=== PATIENT | male | born 1980 | race Hispanic/Latino ===

== ENCOUNTER → 2017-11-06 | Outpatient (CLI) | payer MEDICARE ==
[~2017-11-06] MED LIST: AMLODIPINE BESYL5 MG PO; ATROVENT HFA12.9 GM INH; BUMETANIDE1 MG PO; CHERATUSSIN AC118 ML PO; CLONIDINE1 EAC1 TOP; FLUTICASONE PRO16 GM; LEVEMIR100 UNIT/1 SC; OMEPRAZOLE40 MG PO; PROAIR HFA INH8.5 GM INH; PROCARDIA XL30 MG PO; SIMVASTATIN20 MG PO
== END ==
LOC: SLEEP 10-29 15:00
PROVIDERS: ATTEND Internal Medicine Pulmonary Disease
DX: G47.33 Obstructive sleep apnea (adult) (pediatric) (principal)
CPT/HCPCS: 95811

== ENCOUNTER 2019-09-15 12:33 | Emergency (ER) | payer MEDICARE ==
--- OUTSIDE RECORDS SUMMARY | 2019-09-17 13:59 | XMS REPORT ---
Author Author [facility] Address Unknown Phone Unavailable Care Team Providers Care Expansion Joint Builder Name Role Phone TOMASZ NAPOLES Unavailable Unavailable Payers Payer Name Policy Type Policy Number Effective Date Expiration Date Problems This patient has no known problems. Allergies, Adverse Reactions, Alerts Allergy Name Allergy Type Status Severity Reaction(s) Onset Date Inactive Date Treating Clinician Comments No Known Allergies DA Active U 2019-03-01 00:00:00 No Known Allergies DA Active U 2019-02-10 00:00:00 No Known Allergies DA Active U 2017-03-30 00:00:00 Medications This patient has no known medications. Procedures and Interventions Procedure Date / Time Performed Performing Clinician [id number] 2019-03-09 00:00:00 [id number] 2019-03-09 00:00:00 [id number] 2019-03-09 00:00:00 [id number] 2019-03-09 00:00:00 [id number] 2019-02-27 00:00:00 [id number] 2019-02-27 00:00:00 [id number] 2019-02-27 00:00:00 Results Test Description Test Time Test Comments Text Results Atomic Results Result Comments GLUBED 2019-09-17 11:21:00 GLUBED (test code=GLUBED) 148 mg/dL 74-106 [facility] BASIC METABOLIC [id number] 10:17:00* Test Item Value Reference Range Comments SODIUM (test code=NA) 138 mmol/L 136-145 POTASSIUM (test code=K) 4.6 mmol/L 3.5-5.1 CHLORIDE (test code=CL) 110.0 mmol/L 98-107 CARBON DIOXIDE (test code=CO2) 23.0 mmol/L 21-32 ANION GAP (test code=GAP) 9.6 10-20 GLUCOSE (test code=GLU) 161 mg/dL 74-106 BLOOD UREA NITROGEN (test code=BUN) 66 mg/dL 7-18 RESULT VERIFIED BY REPEAT ANALYSIS GLOMERULAR FILTRATION RATE (test code=GFR) 27 mL/min >=60 Estimated GFR by using Modified MDRD formula.Chronic kidney disease is defined as either kidney damageor GFR <60 mL/min/1.73 m2 for >3 months. CREATININE (test code=CREAT) 2.60 mg/dL 0.7-1.3 BUN/CREATININE RATIO (test code=BUN/CREA) 25.4 10-20 CALCIUM (test code=CA) 8.6 mg/dL 8.5-10.1 PARATHYROID HORMONE [id number] 10:17:00* Test Item Value Reference Range Comments PARATHYROID HORMONE INTACT (test code=PARAI) 134.90 pgram/mL 8.4-88 BASIC METABOLIC [id number] 10:10:00* Test Item Value Reference Range Comments SODIUM (test code=NA) 138 mmol/L 136-145 POTASSIUM (test code=K) 4.6 mmol/L 3.5-5.1 CHLORIDE (test code=CL) 110.0 mmol/L 98-107 CARBON DIOXIDE (test code=CO2) 23.0 mmol/L 21-32 ANION GAP (test code=GAP) 9.6 10-20 GLUCOSE (test code=GLU) 161 mg/dL 74-106 BLOOD UREA NITROGEN (test code=BUN) 66 mg/dL 7-18 RESULT VERIFIED BY REPEAT ANALYSIS GLOMERULAR FILTRATION RATE (test code=GFR) 27 mL/min >=60 Estimated GFR by using Modified MDRD formula.Chronic kidney disease is defined as either kidney damageor GFR <60 mL/min/1.73 m2 for >3 months. CREATININE (test code=CREAT) 2.60 mg/dL 0.7-1.3 BUN/CREATININE RATIO (test code=BUN/CREA) 25.4 10-20 CALCIUM (test code=CA) 8.6 mg/dL 8.5-10.1 PARATHYROID HORMONE [id number] 10:10:00* Test Item Value Reference Range Comments PARATHYROID HORMONE INTACT (test code=PARAI) pgram/mL 8.4-88 [id number] 09:54:00* Test Item Value Reference Range Comments GLUBED (test code=GLUBED) 153 mg/dL 74-106 [facility] band aid [facility] [id number] 06:02:00* Test Item Value Reference Range Comments GLUBED (test code=GLUBED) 162 mg/dL 74-106 Performed by certified band aid machine operator at [facility] - MRI LOW EXT W/O CONT [id number] 23:02:00 FAX: Manuel Peralta NP [phone] [employer]: St: [facility] FAX: Bon Vallecillo MD Name: PHILIP HALEY [facility] : 1980 Age/S: 39/M [address] [facility] Unit #: [id number] Loc: [place] [address] Phys: Manuel Peralta NP Acct: [id number] Dis Date: Status: ADM IN PHONE #: [phone] Exam Date: 09/16/2019 1830 FAX #: [phone] Reason: R/O osteomylitis EXAMS: CPT CODE: [id number] MRI LOW EXT W/[place] [address] HISTORY: Diabetic foot ulcer; rule out osteomyelitis TECHNIQUE: Sagittal T1, sagittal STIR, axial T1, axial T2 fat-sat, coronal T2, and coronal STIR sequences of the right foot were acquired without contrast. COMPARISON: X-ray 09/15/19 FINDINGS: 1st and 4th toe amputation at the level of the metatarsophalangeal joints. No bony destruction, marrow edema, or periosteal reaction. No j oint dislocation. Mild talonavicular degenerative arthrosis. Lisfranc liga ment is intact. Plantar fascia is intact. Intrinsic foot muscle signal riana nges compatible with peripheral neuropathy. Superficial soft tissues are u nremarkable. IMPRESSION: No evidence o f acute osteomyelitis. LOCATION: [facility] at 2302 Reported and signed by: Lise Love D.O. CC: Manuel Peralta NP; Bon Vallecillo MD Technologist: Liliana Perdue)(MR) Trnscrd Date/Time/By: 2018 (2301) : By: [email or web address] Orig Print D/T: S: 09/17/2019 (0749) PAGE 1 Signed Report [id number] 21:05:00* Test Item Value Reference Range Comments VANCOMYCIN (test code=VANCO) 11.2 UG/ML 5.0-45.0 [id number] 20:45:00* Test Item Value Reference Range Comments GLUBED (test code=GLUBED) 200 mg/dL 74-106 Performed by certified band aid machine operator at [facility] [id number] 16:56:00* Test Item Value Reference Range Comments GLUBED (test code=GLUBED) 154 mg/dL 74-106 Performed by certified band aid machine operator at [facility] [id number] 14:58:00* Test Item Value Reference Range Comments GLYCOSYLATED HEMOGLOBIN (HA1C) (test code=GLYHGB) 6.4 % HbA1 SUGGESTED DIAGNOSIS: HbA1C (%) Diabetic >6.4Prediabetes 5.7 - 6.4Normal <5.7 ESTIMATED AVERAGE GLUCOSE (test code=EAG) 137 MG/DL [id number] 13:01:00* Test Item Value Reference Range Comments GLUBED (test code=GLUBED) 144 mg/dL 74-106 Performed by certified band aid machine operator at [facility] US RETRO [id number] 13:00:00 Name: PHILIP HALEY [facility] : 1980 Age/S: 39 / M [address] Unit #: [id number] Loc: [place] [address] Phys: Trevor Yusuf MD Acct: [id number] Dis Date: Status: ADM IN PHONE #: [phone] Exam Date: 09/16/2019 1100 FAX #: [phone] Reason: arf EXAMS: CPT CODE: [id number] US RETRO LTD 75772 HISTORY: Acute renal failure. COMPARISON: None available. Location: [facility]. Bilateral renal ultrasound: Normal echogenicity and texture bilaterally. No hydronephrosis or calyceal stones bilaterally. No perinephric collections bilaterally. Right kidney measured 11.3 x 6.3 x 4.9 cm. Left kidney measured 11 x 6.5 x 6 cm. Unremarkable well-distended urinary bladder. No wall thickening or mural nodules. IMPRESSION: No hydronephrosis or calyceal stones with normal echogenicity and texture. Unremarkable well-distended urinary bladder. at 1300 Reported and signed by: Dae Willson M.D. CC: Treovr Yusuf MD; Bon Vallecillo MD Technologist: FAMILIA MEYER RT(R),[facility] Trnscb Date/Time: 09/16/2019 (1300) [email or web address] Orig Print D/T: S: 09/16/2019 (1309) Probe: PAGE 1 Signed Report BASIC METABOLIC [id number] 10:02:00* Test Item Value Reference Range Comments SODIUM (test code=NA) 137 mmol/L 136-145 POTASSIUM (test code=K) 4.8 mmol/L 3.5-5.1 CHLORIDE (test code=CL) 108.0 mmol/L 98-107 CARBON DIOXIDE (test code=CO2) 21.0 mmol/L 21-32 ANION GAP (test code=GAP) 12.8 10-20 GLUCOSE (test code=GLU) 138 mg/dL 74-106 BLOOD UREA NITROGEN (test code=BUN) 83 mg/dL 7-18 GLOMERULAR FILTRATION RATE (test code=GFR) 22 mL/min >=60 Estimated GFR by using Modified MDRD formula.Chronic kidney disease is defined as either kidney damageor GFR <60 mL/min/1.73 m2 for >3 months. CREATININE (test code=CREAT) 3.10 mg/dL 0.7-1.3 BUN/CREATININE RATIO (test code=BUN/CREA) 26.7 10-20 CALCIUM (test code=CA) 8.5 mg/dL 8.5-10.1 CBC W/AUTO [id number] 09:54:00* Test Item Value Reference Range Comments WHITE BLOOD CELL (test code=WBC) 7.0 K/mm3 4.5-12.5 RED BLOOD CELL (test code=RBC) 3.15 mill/mm3 4.0-5.8 HEMOGLOBIN (test code=HGB) 9.0 gram/dL 13.0-17.5 HEMATOCRIT (test code=HCT) 27.3 % 42.0-52.0 MEAN CELL VOLUME (test code=MCV) 86.7 fL 80-98 MEAN CELL HGB (test code=MCH) 28.6 picogram 27.0-33.0 MEAN CELL HGB CONCETRATION (test code=MCHC) 33.0 gram/dL 33.0-36.0 RED CELL DISTRIBUTION WIDTH (test code=RDW) 14.3 % 11.6-16.2 RED CELL DISTRIBUTION WIDTH SD (test code=RDW-SD) 45.1 fL 37.0-51.0 PLATELET COUNT (test code=PLT) 284 K/mm3 150-450 MEAN PLATELET VOLUME (test code=MPV) 9.6 fL 6.7-11.0 NEUTROPHIL % (test code=NT%) 67.1 % 39.0-69.0 IMMATURE GRANULOCYTE % (test code=IG%) 0.3 % 0.0-5.0 LYMPHOCYTE % (test code=LY%) 20.4 % 25.0-55.0 MONOCYTE % (test code=MO%) 10.2 % 0.0-10.0 EOSINOPHIL % (test code=EO%) 1.6 % 0.0-5.0 BASOPHIL % (test code=BA%) 0.4 % 0.0-1.0 NUCLEATED RBC % (test code=NRBC%) 0.0 % 0-0 NEUTROPHIL # (test code=NT#) 4.68 K/mm3 1.8-7.7 IMMATURE GRANULOCYTE # (test code=IG#) 0.02 x10 3/uL 0-0.03 LYMPHOCYTE # (test code=LY#) 1.42 K/mm3 1.0-5.0 MONOCYTE # (test code=MO#) 0.71 K/mm3 0-0.8 EOSINOPHIL # (test code=EO#) 0.11 K/mm3 0.0-0.5 BASOPHIL # (test code=BA#) 0.03 K/mm3 0.0-0.2 NUCLEATED RBC # (test code=NRBC#) 0.00 K/mm3 0.0-0.1 MANUAL DIFF REQUIRED (test code=MDIFF) NO [id number] 07:04:00* Test Item Value Reference Range Comments GLUBED (test code=GLUBED) 97 mg/dL 74-106 Performed by certified band aid machine operator at [facility] PROTHROMBIN [id number] 00:13:00* Test Item Value Reference Range Comments PROTHROMBIN TIME PATIENT (test code=PTP) 12.5 seconds 9.0-14.0 INTERNATIONAL NORMAL RATIO (test code=INR) 1.1 0.8-1.2 The therapeutic range for oral anticoagulant therapy formost indications is an international normalized ratio (INR)of between 2.0 and 3.0. The recommended therapeutic INRrange for various clinical situations is listed below: Clinical Situation INR range Pulmonary e mbolism treatment (2.0-3.0)Venous thrombosis treatmentVenous thrombosis prophylaxis (high risk surgery)Prevention of systemic embolism from: Acute myocardial infarction Valvular heart disease Atrial fibrillation Mechanical prosthetic heart valves (2.5-3.5) IS PATIENT ON ANTICOAGULANTS? NTHROMBOPLASTIN TIME [id number] 00:13:00* Test Item Value Reference Range Comments THROMBOPLASTIN TIME PARTIAL (test code=PTT) 42.2 seconds 25.0-36.5 IS PATIENT ON ANTICOAGULANTS? [id number] 00:07:00* Test Item Value Reference Range Comments POTASSIUM (test code=K) 5.0 mmol/L 3.5-5.1 URIC [id number] 23:15:00* Test Item Value Reference Range Comments URIC ACID (test code=URIC) 8.9 mg/dL 2.6-7.2 BASIC METABOLIC [id number] 18:19:00* Test Item Value Reference Range Comments SODIUM (test code=NA) 137 mmol/L 136-145 POTASSIUM (test code=K) 5.5 mmol/L 3.5-5.1 CHLORIDE (test code=CL) 109.0 mmol/L 98-107 CARBON DIOXIDE (test code=CO2) 21.0 mmol/L 21-32 ANION GAP (test code=GAP) 12.5 10-20 GLUCOSE (test code=GLU) 66 mg/dL 74-106 BLOOD UREA NITROGEN (test code=BUN) 85 mg/dL 7-18 GLOMERULAR FILTRATION RATE (test code=GFR) 20 mL/min >=60 Estimated GFR by using Modified MDRD formula.Chronic kidney disease is defined as either kidney damageor GFR <60 mL/min/1.73 m2 for >3 months. CREATININE (test code=CREAT) 3.40 mg/dL 0.7-1.3 BUN/CREATININE RATIO (test code=BUN/CREA) 24.6 10-20 CALCIUM (test code=CA) 9.0 mg/dL 8.5-10.1 C REACTIVE [id number] 18:19:00* Test Item Value Reference Range Comments C REACTIVE PROTEIN (test code=CRP) 3.28 mg/dL 0-0.3 CBC W/AUTO [id number] 18:14:00* Test Item Value Reference Range Comments WHITE BLOOD CELL (test code=WBC) 8.4 K/mm3 4.5-12.5 RED BLOOD CELL (test code=RBC) 3.64 mill/mm3 4.0-5.8 HEMOGLOBIN (test code=HGB) 10.3 gram/dL 13.0-17.5 HEMATOCRIT (test code=HCT) 31.0 % 42.0-52.0 MEAN CELL VOLUME (test code=MCV) 85.2 fL 80-98 MEAN CELL HGB (test code=MCH) 28.3 picogram 27.0-33.0 MEAN CELL HGB CONCETRATION (test code=MCHC) 33.2 gram/dL 33.0-36.0 RED CELL DISTRIBUTION WIDTH (test code=RDW) 14.5 % 11.6-16.2 RED CELL DISTRIBUTION WIDTH SD (test code=RDW-SD) 44.6 fL 37.0-51.0 PLATELET COUNT (test code=PLT) 338 K/mm3 150-450 MEAN PLATELET VOLUME (test code=MPV) 9.7 fL 6.7-11.0 NEUTROPHIL % (test code=NT%) 64.0 % 39.0-69.0 IMMATURE GRANULOCYTE % (test code=IG%) 0.2 % 0.0-5.0 LYMPHOCYTE % (test code=LY%) 22.4 % 25.0-55.0 MONOCYTE % (test code=MO%) 10.9 % 0.0-10.0 EOSINOPHIL % (test code=EO%) 2.0 % 0.0-5.0 BASOPHIL % (test code=BA%) 0.5 % 0.0-1.0 NUCLEATED RBC % (test code=NRBC%) 0.0 % 0-0 NEUTROPHIL # (test code=NT#) 5.38 K/mm3 1.8-7.7 IMMATURE GRANULOCYTE # (test code=IG#) 0.02 x10 3/uL 0-0.03 LYMPHOCYTE # (test code=LY#) 1.89 K/mm3 1.0-5.0 MONOCYTE # (test code=MO#) 0.92 K/mm3 0-0.8 EOSINOPHIL # (test code=EO#) 0.17 K/mm3 0.0-0.5 BASOPHIL # (test code=BA#) 0.04 K/mm3 0.0-0.2 NUCLEATED RBC # (test code=NRBC#) 0.00 K/mm3 0.0-0.1 MANUAL DIFF REQUIRED (test code=MDIFF) NO - XR FOOT 3 + V [id number] 15:34:00 FAX: Pam Toth NP [employer]: St: REG Name: PHILIP MELO [facility] : [birth year] Age/S: 39/M [address] [facility] Unit #: [id number] Loc: [place] [address] Phys: Pam Toth NP Acct: [id number] Dis Date: Status: REG ER PHONE #: [phone] Exam Date: 09/15/2019 1441 FAX #: [phone] Reason: swelling and wound on right foot EXAMS: CPT CODE: [id number] XR FOOT 3 + V RT [address] EXAM: Right foot, 3 views; INFORMATION: Swelling; infection, wound on right foot; FIND INGS: Status post amputation of the first and fourth toes. Mild loca lized osteoporosis is seen involving the head of the fourth metatarsal bon e but there is no evidence of cortical erosion. Otherwise, imaged bones ar e intact; no evidence of fracture or dislocation. Arterial calcifica tions. No evidence of radiopaque foreign bodies. IMPRESSIO N: 1. Status post amputation of the first and fourth toes. 2. Lo calized osteoporosis of the distal fourth metatarsal bone could be a sig n of early osteomyelitis. Location code: [facility] at 1534 Reported and signed by: Efra Irving M.D. CC: Pam Toth NP Technologist: RT Kailee(R); Chelsey Shetty Date/Time/By: 09/15/2019 (1534) : By: CrystalGRW Orig Print D/T: S: 09/15/2019 (9936) PAGE 1 Signed Report [id number] 15:06:00* Test Item Value Reference Range Comments GLUBED (test code=GLUBED) 155 mg/dL 74-106 Performed by certified band aid machine operator at [facility] - SP FLUORO GUID CTRL ACC [id number] 16:09:00 Name: PHILIP HALEY : 1980 Age/S: 38 / M [address] Unit #: [id number] Loc: [place] [address] Phys: Eloy Hardin MD Acct: [id number] Dis Date: Status: REG SDC PHONE #: [phone] Exam Date: 03/23/2019 6546 FAX #: Reason: EXAMS: CPT: [id number] SP FLUORO GUID CTRL ACC DEV 42310 Fluoro Time: 2:36 DAP (Gy m2): 4.80 Air Kerma (mGy): 22 EXAMINATION: TUNNELED CENTRAL VENOUS CATHETER PLACEMENT USING ULTRASOUND AND FLUOROSCOPIC GUIDANCE. LOCATION: S17. HISTORY: ESRD, NE/CAD, hypertension, DM, recently removed right-sided tunneled dialysis catheter for fever/suspected infection, request is made for new tunneled dialysis catheter after line holiday. COMPARISON: None. SEDATION: Moderate sedation was administered under the attending physician's direction and continuous monitoring by a trained nurse specialist who was independent from those actually performing the procedure. Total monitored sedation time was 30 minutes. IV hydralazine was given during procedure for elevated blood pressure. RADIATION DOSE: 23 mGy. TECHNIQUE: The risks, benefits and alternatives were discussed and informed consent was obtained. Prior to beginning the procedure, [place] Protocol was used to confirm the patient's identity and planned procedure. Prior to the procedure, the central veins were evaluated by ultrasound, an image recorded and saved in PACS. Maximum sterile barriers including cap, mask, hand hygiene, sterile gloves, sterile gown, large sterile drape and cutaneous antisepsis were used. The skin over the left internal jugular vein was sterilely prepped, draped and infiltrated with 1% lidocaine. The vein was accessed with a 21 gauge needle using realtime ultrasound guidance. A guidewire and catheter were then passed centrally using fluoroscopic guidance. The intravascular length from the access site to the right atrium was then assessed. After infiltrating the skin in the subclavicular region with 1% lidocaine, a short transverse incision was made and the 24 cm Duramax dialysis catheter was tunneled to the internal jugular access site and inserted through a peel-away sheath. The catheter was flushed with 100U/ml heparin. The incision in the lower neck was closed using 4-0 Vicryl and Dermabond. A sterile dressing was applied. ESTIMATED BLOOD LOSS: Less than 30 milliliters. PAGE 1 Signed Report (CONTINUED) Name: PHIILP HALEY : 1980 Age/S: 38 / M [address] Unit #: [id number] Loc: [place] [address] Phys: Eloy Hardin MD Acct: [id number] Dis Date: [place] [facility] [place] #: [phone] Exam Date: 03/23/2019 1450 FAX #: Reason: EXAMS: CPT: [id number] SP FLUORO GUID CTRL ACC DEV 53878 Fluoro Time: 2:36 DAP (Gy m2): 4.80 Air Kerma (mGy): 22 <Continued> DISCHARGED TO: Recovery and then to SNF. CONDITION: Stable. FINDINGS: Ultrasound image shows a patent vein in the lower neck. The final fluoroscopic image demonstrates the catheter with its tip in the right atrium. No complications are seen. IMPRESSION: Successful tunneled catheter placement. PLAN: The catheter is ready for immediate use. When treatment is completed, removal can be scheduled by calling [facility]. at 1609 Reported and signed by: Sav Up M.D. CC: Eloy Rubin MD PAGE 2 Signed Report Name: PHILIP HALEY [place] : 1980 Age/S: 38 / M [address] Unit #: [id number] Loc: [place] [address] Phys: Eoly Hardin MD Acct: [id number] Dis Date: Status[place] [facility] [place] #: [phone] Exam Date: 03/23/2019 1455 FAX #: Reason: EXAMS: CPT: [id number] SP FLUORO GUID CTRL ACC DEV 97831 Fluoro Time: 2:36 DAP (Gy m2): 4.80 Air Kerma (mGy): 22 < Continued> Technologist: Roque Taylor RT(R) Trnscb Date/Time: 03/23/2019 (6022) [email or web address] Orig Print D/T: S: 03/23/2019 (9906) PAGE 3 Signed Report - SP FLUORO GUID CTRL ACC [id number] 09:03:00 Name: PHILIP HALEY : 1980 Age/S: 38 / M [address] Unit #: [id number] Loc: [place] [address] Phys: Vimal Wiggins MD Acct: [id number] Dis Date: Status: DEP SD PHONE #: [phone] Exam Date: 03/21/2019 09 FAX #: Reason: EXAMS: CPT: [id number] SP FLUORO GUID CTRL ACC DEV 40034 Fluoro Time: :09 DAP (Gy m2): 0.20 Air Kerma (mGy): 1 PROCEDURE: FLUOROSCOPIC GUIDED TUNNELED CUFFED CATHETER REMOVAL DATE: 03/21/2019 CLINICAL INDICATION: 38-year-old man with end- stage renal disease and suspected infection of a tunneled hemodialysis catheter. OPERATING PHYSICIANS: Mauricio Linares MD MEDICATIONS: 1% lidocaine without epinephrine COMPLICATIONS: None FLUORO TIME: 8 seconds; Air Kerma: 1 mGy PROCEDURE: Risk and benefits of the procedure were detailed, and informed written consent was obtained. Patient was placed supine on the fluoroscopy table. A marriage and family social worker radiograph was obtained. The indwelling heparin flush was drawn off the catheter ports. The catheter and skin was then prepped and draped in standard sterile fashion. All elements of maximum barrier sterile technique were utilized. The skin and subcutaneous tissue around the catheter cuff was infiltrated with local anesthetic. Blunt dissection was used to release the catheter cuff. The catheter was withdrawn and hemostasis was achieved with manual compression. A sterile dressing was applied. A post procedure radiograph shows complete removal of the catheter. The catheter tip was placed in a specimen container and sent for Gram stain, culture, and sensitivity. The patient tolerated the procedure well without immediate complications. IMPRESSION: Successful removal of a tunneled cuffed right jugular hemodialysis catheter. LOCATION: S17 at 0903 Reported and signed by: Mauricio Linares M.D. PAGE 1 Signed Report (CONTINUED) Name: PHILIP HALEY [place] : 1980 Age/S: 38 / M [address] Unit #: [id number] Loc: [place] [address] Phys: Vimal Wiggins MD Acct: [id number] Dis Date: Status: [facility] PHONE #: [phone] Exam Date: 03/21/2019 09 FAX #: Reason: EXAMS: CPT: [id number] SP FLUORO GUID CTRL ACC DEV 27213 Fluoro Time: :09 DAP (Gy m2): 0.20 Air Kerma (mGy): 1 <Continued> CC: Vimal Wiggins MD PAGE 2 Signed Report Name: PHILIP HALEY [place] : 1980 Age/S: 38 / M [address] Unit #: [id number] Loc: [place] [address] Phys: Vimal Wiggins MD Acct: [id number] Dis Date: Status: [facility] PHONE #: [phone] Exam Date: 03/21/2019 0900 FAX #: Reason: EXAMS: CPT: [id number] SP FLUORO GUID CTRL ACC DEV 30453 Fluoro Time: :09 DAP (Gy m2): 0.20 Air Kerma (mGy): 1 <Continued> Technologist: Roque Taylor RT(R) Trnscb Date/Time: 03/21/2019 (902) [id number] Orig Print D/T: S: 03/22/2019 (900) PAGE 3 Signed Report GLUBED 2019-03-15 08:04:00* Test Item Value Reference Range Comments GLUBED (test code=GLUBED) 157 mg/dL 74-106 Performed by certified band aid machine operator at [facility] [id number] 08:04:00* Test Item Value Reference Range Comments GLUBED (test code=GLUBED) 136 mg/dL 74-106 Performed by certified band aid machine operator at [facility] BASIC METABOLIC [id number] 22:35:00* Test Item Value Reference Range Comments SODIUM (test code=NA) 132 mmol/L 134-147 POTASSIUM (test code=K) 4.3 mmol/L 3.4-5.0 CHLORIDE (test code=CL) 96 mmol/L 100-108 CARBON DIOXIDE (test code=CO2) 27 mmol/L 21-32 ANION GAP (test code=GAP) 9.0 GAP calc 4.0-15.0 GLUCOSE (test code=GLU) 136 MG/DL 70-110 BLOOD UREA NITROGEN (test code=BUN) 28 MG/DL 7-18 GLOMERULAR FILTRATION RATE (test code=GFR) 16 estGFR >60 CREATININE (test code=CREAT) 4.3 MG/DL 0.8-1.3 CALCIUM (test code=CA) 8.6 MG/DL 8.5-10.1 GLUCOSE BEDSIDE [id number] 11:54:00* Test Item Value Reference Range Comments GLUCOSE BEDSIDE TESTING (test code=GLUBED) 162 mg/dL 70-110 - SP FLUORO GUID CTRL ACC [id number] 10:12:00 Name: TERAPHILIP [facility] : 1980 Age/S: 38 / M [address] [facility] Unit #: [id number] Loc: [place] [address] Phys: Renzo Huston MD Acct: [id number] Dis Date: [id number] Status: DIS IN PHONE #: [phone] Exam Date: 02/26/2019 1713 FAX #: [phone] Reason: EXAMS: CPT CODE: [id number] SP FLUORO GUID CTRL ACC DEV 06133 Fluoro Time: 19 DAP (Gy m2): 0.2 Air Kerma (mGy): 1 EXAM: Insertion of a tunneled hemodialysis catheter with fluoroscopic guidance and conscious sedation; INFORMATION: Chronic renal failure; indwelling temporary hemodialysis catheter; TECHNIQUE AND FINDINGS: Conscious sedation start time: 1651 hours; Completion time: 1713 hours; Under physician supervision 2 mg of Versed and 50 mcg of fentanyl were administered intravenously for moderate sedation. The patient's right neck and upper chest region was prepped and draped in the usual sterile fashion, applying all elements of maximal sterile barrier technique. Xylocaine was administered and using fluoroscopic guidance the indwelling temporary hemodialysis catheter was removed over a guidewire. Sequential dilatation was performed and a 15 Fr ench peel-away sheath was inserted. A subcutaneous tunnel was create d in the usual sterile fashion and a tunneled hemodialysis catheter was th en inserted and positioned with its tip in the right atrium. Good bl ood return was noticed; the catheter was sutured to the skin and flushed w ith heparinized saline. No complications. IMPRESSION: Successful insertion of a tunneled hemodialysis catheter with fluoro scopic guidance. Fluoroscopy Time: 19 sec CAK : 1 mGy DAP : 0.2 mGy sq cm at 1012 Reported and signed by: Efra Irving M.D. CC: Renzo Huston MD Technologist: Maddi PAPPAS(R) Trnscb Date/Time: 03/08/2019 (101 ) Lamin Orig Print D/T: S: 03/08/2019 (1016) PAGE 1 Signed Report GLUCOSE BEDSIDE [id number] 07:53:00* Test Item Value Reference Range Comments GLUCOSE BEDSIDE TESTING (test code=GLUBED) 174 mg/dL 70-110 BASIC METABOLIC [id number] 06:08:00* Test Item Value Reference Range Comments SODIUM (test code=NA) 135 mmol/L 134-147 POTASSIUM (test code=K) 3.8 mmol/L 3.4-5.0 CHLORIDE (test code=CL) 100 mmol/L 100-108 CARBON DIOXIDE (test code=CO2) 27 mmol/L 21-32 ANION GAP (test code=GAP) 8.0 GAP calc 4.0-15.0 GLUCOSE (test code=GLU) 156 MG/DL 70-110 BLOOD UREA NITROGEN (test code=BUN) 20 MG/DL 7-18 GLOMERULAR FILTRATION RATE (test code=GFR) 19 estGFR >60 CREATININE (test code=CREAT) 3.8 MG/DL 0.8-1.3 CALCIUM (test code=CA) 8.8 MG/DL 8.5-10.1 GLUCOSE BEDSIDE [id number] 05:17:00* Test Item Value Reference Range Comments GLUCOSE BEDSIDE TESTING (test code=GLUBED) 161 mg/dL 70-110 GLUCOSE BEDSIDE [id number] 17:01:00* Test Item Value Reference Range Comments GLUCOSE BEDSIDE TESTING (test code=GLUBED) 164 mg/dL 70-110 GLUCOSE BEDSIDE [id number] 12:08:00* Test Item Value Reference Range Comments GLUCOSE BEDSIDE TESTING (test code=GLUBED) 165 mg/dL 70-110 GLUCOSE BEDSIDE [id number] 08:22:00* Test Item Value Reference Range Comments GLUCOSE BEDSIDE TESTING (test code=GLUBED) 170 mg/dL 70-110 GLUCOSE BEDSIDE [id number] 20:23:00* Test Item Value Reference Range Comments GLUCOSE BEDSIDE TESTING (test code=GLUBED) 157 mg/dL 70-110 GLUCOSE BEDSIDE [id number] 17:19:00* Test Item Value Reference Range Comments GLUCOSE BEDSIDE TESTING (test code=GLUBED) 178 mg/dL 70-110 GLUCOSE BEDSIDE [id number] 12:12:00* Test Item Value Reference Range Comments GLUCOSE BEDSIDE TESTING (test code=GLUBED) 117 mg/dL 70-110 GLUCOSE BEDSIDE [id number] 08:08:00* Test Item Value Reference Range Comments GLUCOSE BEDSIDE TESTING (test code=GLUBED) 156 mg/dL 70-110 GLUCOSE BEDSIDE [id number] 19:55:00* Test Item Value Reference Range Comments GLUCOSE BEDSIDE TESTING (test code=GLUBED) 180 mg/dL 70-110 GLUCOSE BEDSIDE [id number] 17:27:00* Test Item Value Reference Range Comments GLUCOSE BEDSIDE TESTING (test code=GLUBED) 125 mg/dL 70-110 GLUCOSE BEDSIDE [id number] 12:15:00* Test Item Value Reference Range Comments GLUCOSE BEDSIDE TESTING (test code=GLUBED) 203 mg/dL 70-110 GLUCOSE BEDSIDE [id number] 08:09:00* Test Item Value Reference Range Comments GLUCOSE BEDSIDE TESTING (test code=GLUBED) 174 mg/dL 70-110 BASIC METABOLIC [id number] 04:37:00* Test Item Value Reference Range Comments SODIUM (test code=NA) 131 mmol/L 134-147 POTASSIUM (test code=K) 3.8 mmol/L 3.4-5.0 CHLORIDE (test code=CL) 95 mmol/L 100-108 CARBON DIOXIDE (test code=CO2) 28 mmol/L 21-32 ANION GAP (test code=GAP) 8.0 GAP calc 4.0-15.0 GLUCOSE (test code=GLU) 150 MG/DL 70-110 BLOOD UREA NITROGEN (test code=BUN) 23 MG/DL 7-18 GLOMERULAR FILTRATION RATE (test code=GFR) 13 estGFR >60 CREATININE (test code=CREAT) 5.3 MG/DL 0.8-1.3 CALCIUM (test code=CA) 8.7 MG/DL 8.5-10.1 GLUCOSE BEDSIDE [id number] 20:39:00* Test Item Value Reference Range Comments GLUCOSE BEDSIDE TESTING (test code=GLUBED) 159 mg/dL 70-110 GLUCOSE BEDSIDE [id number] 16:58:00* Test Item Value Reference Range Comments GLUCOSE BEDSIDE TESTING (test code=GLUBED) 138 mg/dL 70-110 GLUCOSE BEDSIDE [id number] 12:11:00* Test Item Value Reference Range Comments GLUCOSE BEDSIDE TESTING (test code=GLUBED) 116 mg/dL 70-110 GLUCOSE BEDSIDE [id number] 08:05:00* Test Item Value Reference Range Comments GLUCOSE BEDSIDE TESTING (test code=GLUBED) 142 mg/dL 70-110 BASIC METABOLIC [id number] 04:41:00* Test Item Value Reference Range Comments SODIUM (test code=NA) 131 mmol/L 134-147 POTASSIUM (test code=K) 4.2 mmol/L 3.4-5.0 CHLORIDE (test code=CL) 96 mmol/L 100-108 CARBON DIOXIDE (test code=CO2) 26 mmol/L 21-32 ANION GAP (test code=GAP) 9.0 GAP calc 4.0-15.0 GLUCOSE (test code=GLU) 149 MG/DL 70-110 BLOOD UREA NITROGEN (test code=BUN) 33 MG/DL 7-18 GLOMERULAR FILTRATION RATE (test code=GFR) 11 estGFR >60 CREATININE (test code=CREAT) 6.3 MG/DL 0.8-1.3 CALCIUM (test code=CA) 9.0 MG/DL 8.5-10.1 GLUCOSE BEDSIDE [id number] 16:52:00* Test Item Value Reference Range Comments GLUCOSE BEDSIDE TESTING (test code=GLUBED) 135 mg/dL 70-110 - XR CHEST 1 [id number] 14:31:00 Name: PHILIP HALEY [facility] : 1980 Age/S: 38 / M [address] Unit #: [id number] Loc: [place] [address] Phys: Kulwinder Ruffin MD Acct: [id number] Dis Date: [id number] Status: DIS IN PHONE #: [phone] Exam Date: 03/03/2019 135 FAX #: Reason: SOB EXAMS: CPT: [id number] XR CHEST 1 V 91236 Fluoro Time: DAP (Gy m2): Air Kerma (mGy): Location of dictation: B2 Portable chest one view. HISTORY: SOB COMMENT: Compared to 03/01/2019. A right-sided central venous catheter catheter remains in place. The heart and mediastinum are normal and stable. Visualized soft tissues and skeletal structures are unremarkable. There has been no significant changes. IMPRESSION: No active disease in the chest. at 1431 Reported and signed by: Ashtyn Ortega M.D. CC: Kulwinder Ruffin MD PAGE 1 Signed Report Name: PHILIP HALEY [place] : 1980 Age/S: 38 / M [address] Unit #: [id number] Loc: [place] [address] Phys: Kulwinder Ruffin MD Acct: [id number] Dis Date: [id number] Status: DIS IN PHONE #: [phone] Exam Date: 03/03/2019 1355 FAX #: Reason: SOB EXAMS: CPT: [id number] XR CHEST 1 V 93412 Fluoro Time: DAP (Gy m2): Air Kerma (mGy): <Continued> Technologist: Ilana Pina, RT(R)(CT)(MRI) Trnwvb Date/Time: 03/03/2019 (1431) tRAPHAELPXC Orig Print D/T: S: 03/03/2019 (1434) PAGE 2 Signed Report - XR CHEST 1 [id number] 14:31:00 Name: PHILIP HALEY : 1980 Age/S: 38 / M [address] Unit #: [id number] Loc: [place] [address] Phys: Kulwinder Ruffin MD Acct: [id number] Dis Date: Status: ADM IN PHONE #: [phone] Exam Date: 03/03/2019 1359 FAX #: Reason: SOB EXAMS: CPT: [id number] XR CHEST 1 V 53800 Fluoro Time: DAP (Gy m2): Air Kerma (mGy): Location of dictation: B2 Portable chest one view. HISTORY: SOB COMMENT: Compared to 03/01/2019. A right-sided central venous catheter catheter remains in place. The heart and mediastinum are normal and stable. Visualized soft tissues and skeletal structures are unremarkable. There has been no significant changes. IMPRESSION: No active disease in the chest. at 1431 Reported and signed by: Ashtyn Ortega M.D. CC: Kulwinder Ruffin MD PAGE 1 Signed Report Name: PHILIP HALEY : 1980 Age/S: 38 / M [address] Unit #: [id number] Loc: [place] [address] Phys: Kulwinder Ruffin MD Acct: [id number] Dis Date: Status: ADM IN PHONE #: [phone] Exam Date: 03/03/2019 1359 FAX #: Reason: SOB EXAMS: CPT: [id number] XR CHEST 1 V 94653 Fluoro Time: DAP (Gy m2): Air Kerma (mGy): <Continued> Technologist: Ilana Pina, RT(R)(CT)(MRI) Trnscb Date/Time: 03/03/2019 (1431) CrystalPXC Orig Print D/T: S: 03/03/2019 (5095) PAGE 2 Signed Report GLUCOSE BEDSIDE [id number] 11:57:00* Test Item Value Reference Range Comments GLUCOSE BEDSIDE TESTING (test code=GLUBED) 137 mg/dL 70-110 GLUCOSE BEDSIDE [id number] 08:45:00* Test Item Value Reference Range Comments GLUCOSE BEDSIDE TESTING (test code=GLUBED) 108 mg/dL 70-110 BASIC METABOLIC [id number] 04:45:00* Test Item Value Reference Range Comments SODIUM (test code=NA) 136 mmol/L 134-147 POTASSIUM (test code=K) 4.1 mmol/L 3.4-5.0 CHLORIDE (test code=CL) 97 mmol/L 100-108 CARBON DIOXIDE (test code=CO2) 27 mmol/L 21-32 ANION GAP (test code=GAP) 12.0 GAP calc 4.0-15.0 GLUCOSE (test code=GLU) 116 MG/DL 70-110 BLOOD UREA NITROGEN (test code=BUN) 18 MG/DL 7-18 GLOMERULAR FILTRATION RATE (test code=GFR) 19 estGFR >60 CREATININE (test code=CREAT) 3.8 MG/DL 0.8-1.3 CALCIUM (test code=CA) 9.6 MG/DL 8.5-10.1 GLUCOSE BEDSIDE [id number] 20:25:00* Test Item Value Reference Range Comments GLUCOSE BEDSIDE TESTING (test code=GLUBED) 131 mg/dL 70-110 GLUCOSE BEDSIDE [id number] 16:50:00* Test Item Value Reference Range Comments GLUCOSE BEDSIDE TESTING (test code=GLUBED) 117 mg/dL 70-110 GLUCOSE BEDSIDE [id number] 11:41:00* Test Item Value Reference Range Comments GLUCOSE BEDSIDE TESTING (test code=GLUBED) 137 mg/dL 70-110 GLUCOSE BEDSIDE [id number] 07:43:00* Test Item Value Reference Range Comments GLUCOSE BEDSIDE TESTING (test code=GLUBED) 111 mg/dL 70-110 AB HEPATITIS B [id number] 06:13:00* Test Item Value Reference Range Comments AB HEPATITIS B SURFACE (test code=HBSAB) <3.1 mIU/mL Immunity>9.9 Status of Immunity Anti-HBs Level Inconsistent with Immunity 0.0 - 9.9Consistent with Immunity >9.9 AG HEPATITIS B [id number] 06:13:00* Test Item Value Reference Range Comments AG HEPATITIS B SURFACE (test code=HBSAG) SCREEN NEGATIVE AB HEPATITIS B [id number] 06:13:00* Test Item Value Reference Range Comments AB HEPATITIS B CORE (test code=HBCAB) AB HEPATITIS B [id number] 06:13:00* Test Item Value Reference Range Comments AB HEPATITIS B SURFACE (test code=HBSAB) <3.1 mIU/mL Immunity>9.9 Status of Immunity Anti-HBs Level Inconsistent with Immunity 0.0 - 9.9Consistent with Immunity >9.9 AG HEPATITIS B [id number] 06:13:00* Test Item Value Reference Range Comments AG HEPATITIS B SURFACE (test code=HBSAG) Negative Negative AB HEPATITIS B [id number] 06:13:00* Test Item Value Reference Range Comments AB HEPATITIS B CORE (test code=HBCAB) AB HEPATITIS B [id number] 06:13:00* Test Item Value Reference Range Comments AB HEPATITIS B SURFACE (test code=HBSAB) <3.1 mIU/mL Immunity>9.9 Status of Immunity Anti-HBs Level Inconsistent with Immunity 0.0 - 9.9Consistent with Immunity >9.9 AG HEPATITIS B [id number] 06:13:00* Test Item Value Reference Range Comments AG HEPATITIS B SURFACE (test code=HBSAG) Negative Negative AB HEPATITIS B [id number] 06:13:00* Test Item Value Reference Range Comments AB HEPATITIS B CORE (test code=HBCAB) Negative Negative Performed At: [facility] [address] [place], [place] [id number] Bar Raygoza MD Ph:[phone] BASIC METABOLIC [id number] 04:30:00* Test Item Value Reference Range Comments SODIUM (test code=NA) 140 mmol/L 134-147 POTASSIUM (test code=K) 3.8 mmol/L 3.4-5.0 CHLORIDE (test code=CL) 102 mmol/L 100-108 CARBON DIOXIDE (test code=CO2) 28 mmol/L 21-32 ANION GAP (test code=GAP) 10.0 GAP calc 4.0-15.0 GLUCOSE (test code=GLU) 120 MG/DL 70-110 BLOOD UREA NITROGEN (test code=BUN) 21 MG/DL 7-18 GLOMERULAR FILTRATION RATE (test code=GFR) 24 estGFR >60 CREATININE (test code=CREAT) 3.1 MG/DL 0.8-1.3 CALCIUM (test code=CA) 9.2 MG/DL 8.5-10.1 CBC W/AUTO [id number] 04:05:00* Test Item Value Reference Range Comments WHITE BLOOD CELL (test code=WBC) 7.2 K/mm3 3.5-11.0 RED BLOOD CELL (test code=RBC) 3.37 M/mm3 4.70-6.10 HEMOGLOBIN (test code=HGB) 9.7 G/DL 12.3-15.9 HEMATOCRIT (test code=HCT) 30.0 % 35.8-46.7 MEAN CELL VOLUME (test code=MCV) 89.0 Fl 86.3-98.9 MEAN CELL HGB (test code=MCH) 28.8 pg 28.9-34.4 MEAN CELL HGB CONCETRATION (test code=MCHC) 32.3 G/DL 32.1-34.5 RED CELL DISTRIBUTION WIDTH (test code=RDW) 13.4 SD 11.5-14.5 PLATELET COUNT (test code=PLT) 376.0 K/mm3 150-450 MEAN PLATELET VOLUME (test code=MPV) 8.70 fL 7.0-9.6 NEUTROPHIL % (test code=NT%) 66.5 % 40-76 LYMPHOCYTE % (test code=LY%) 17.5 % 20.5-51.1 MONOCYTE % (test code=MO%) 13.1 % 1.7-9.3 EOSINOPHIL % (test code=EO%) 2.6 % 0.0-6.0 BASOPHIL % (test code=BA%) 0.3 % 0.0-2.0 NEUTROPHIL # (test code=NT#) 4.79 K/mm3 1.8-7.6 LYMPHOCYTE # (test code=LY#) 1.3 K/mm3 0.6-3.0 MONOCYTE # (test code=MO#) 0.9 K/mm3 0.2-1.5 EOSINOPHIL # (test code=EO#) 0.2 K/mm3 0.0-0.4 BASOPHIL # (test code=BA#) 0.0 K/mm3 0.0-0.2 MANUAL DIFF REQUIRED (test code=MDIFF) NO DIFF/SCN CRITERIA GLUCOSE BEDSIDE [id number] 20:00:00* Test Item Value Reference Range Comments GLUCOSE BEDSIDE TESTING (test code=GLUBED) 171 mg/dL 70-110 - DUP EXTRACRANIAL [id number] 19:02:00 Name: PHILIP HALEY [facility] : 1980 Age/S: 38 / M [address] Unit #: [id number] Loc: [place] [address] Phys: Aamir Dinh MD Acct: [id number] Dis Date: 03/08/2019 Status: DIS IN PHONE #: [phone] Exam Date: 03/01/2019 1757 FAX #: Reason: syncope EXAMS: CPT: [id number] DUP EXTRACRANIAL RAYSHAWN [address] Carotid Doppler Clinical indication: Syncope Comparison: None Location B2 Doppler interrogation of the right and left extracranial carotid internal carotid artery was performed using color Doppler, grayscale and pulsed Doppler waveform analysis. Appropriate flow velocities and waveforms are demonstrated in all of the interrogated vessels. No appreciable plaque is demonstrated. Peak systolic velocity in the right ICA 78.4 Peak systolic velocity in the right CCA 92.5 Right ICA to CCA ratio 0.8 Peak systolic velocity in the left ICA 59.9 Peak systolic velocity in the left CCA 117 Left ICA to CCA ratio0.5 Flow in the external carotid artery and vertebral arteries is antegrade and appropriate bilaterally. Impre ssion: Normal carotid Doppler. at 1902 Reported and signed by: Keyona Lees M.D. CC: Aamir Dinh MD; Kulwinder Ruffin MD Technologist: Debbie Weston Trnscb Date/Time: 03/01/2019 (1901) Tere PAGE 1 Signed R eport Name: PHILIP HALEY [facility] : 1980 Age/S: 38 / M [address] Unit #: [id number] Loc: [place] [address] Phys: Aamir Dinh MD Acct: [id number] Dis Date: 03/08/2019 Status: DIS IN PHONE #: [phone] Exam Date: 03/01/2019 1751 FAX #: Reason: syncope EXAMS: CPT: [id number] DUP EXTRACRANIAL RAYSHAWN [address] <Continued> Orig Print D/T: S: 03/01/2019 (1904) Probe: PAGE 2 Signed Report - DUP EXTRACRANIAL [id number] 19:02:00 [facility] 1980 Age[facility]S: 38 / M [address] Unit #: [id number] Loc: [place] [address] Phys: Alva Dinh MD Acct: [id number] Di s Date: Status: ADM IN PHONE #: Exam Date: 03/01/2019 9371 FAX #: Reason: syncope EXAMS: CPT: [id number] DUP EXTRACRAN IAL RAYSHAWN [address] Carotid Doppler Clinical indication: Syncope Comparison: None Location B2 Doppler interrogation of the right and left extracrania l carotid internal carotid artery was performed using color Doppler, gabe morgan and pulsed Doppler waveform analysis. Appropriate flow velocities and waveforms are demonstrated in all of the interrogated vesse ls. No appreciable plaque is demonstrated. Peak syst olic velocity in the right ICA 78.4 Peak systolic velocity in the right CC A 92.5 Right ICA to CCA ratio 0.8 Peak systolic velocity in the left ICA 59.9 Peak systolic velocity in the left CCA 117 Left IC A to CCA ratio0.5 Flow in the external carotid artery and vertebra l arteries is antegrade and appropriate bilaterally. Impre ssion: Normal carotid Doppler. at 1902 Reported and signed by: Keyona Lees M.D. CC: Aamir Dinh MD; Kulwinder Ruffin MD Technologist: Debbie Weston Trnscb Date/Time: 03/01/2019 (1901) Tere PAGE 1 Signed R eport Name: PHILIP HALEY [facility] : 1980 Age/S: 38 / M [address] Unit #: [id number] Loc: [place] [address] Phys: Aamir Dinh MD Acct: [id number] Dis Date: Status: ADM IN PHONE #: [phone] Exam Date: 03/01/2019 8568 FAX #: Reason: syncope EXAMS: CPT: [id number] DUP EXTRACRANIAL R[place]SHAWN [address] <Continued> Orig Print D/T: S: 03/01/2019 (190) Probe: PAGE 2 Signed Report NT PRO-BRAIN NATRIURETIC [id number] 16:34:00* Test Item Value Reference Range Comments NT PRO-BRAIN NATRIURETIC PEPTI (test code=PROBNP) 869 PG/ML 0-100 [id number] 16:34:00* Test Item Value Reference Range Comments TROPONIN-I (test code=TROPI) < 0.015 NG/ML 0.000-0.045 Negative: </=0.045 Positive: >/=0.046 Correlation with serial results, other cardiac markers, and clinical findings is necessary to determine the clinical significance of this result. Quantitative results using different methodologies should not be compared to one another as numerical results may varyby method. Completed by Nursing: NOGLUCOSE BEDSIDE [id number] 16:18:00* Test Item Value Reference Range Comments GLUCOSE BEDSIDE TESTING (test code=GLUBED) 102 mg/dL 70-110 GLUCOSE BEDSIDE [id number] 13:33:00* Test Item Value Reference Range Comments GLUCOSE BEDSIDE TESTING (test code=GLUBED) 117 mg/dL 70-110 [id number] 13:03:00* Test Item Value Reference Range Comments TROPONIN-I (test code=TROPI) < 0.015 NG/ML 0.000-0.045 Negative: </=0.045 Positive: >/=0.046 Correlation with serial results, other cardiac markers, and clinical findings is necessary to determine the clinical significance of this result. Quantitative results using different methodologies should not be compared to one another as numerical results may varyby method. Completed by Nursing: NO- CTA CHEST FOR [id number] 11:56:00 Name: PHILIP HALEY : 1980 Age/S: 38 / M [address] [address] Unit #: [id number] Loc: [place] [address] Phys: MenaAnd rosita Wasserman MD Acct: [id number] Di s Date: 03/08/2019 Status: DIS IN PHONE #: Exam Date: 03/01/2019 1146 FAX #: Reason: rule out PE EXAMS: CPT: [id number] CTA CHEST FOR PE EXAMINATION: - CTA CHEST FOR PE. LOCATION: S17. HISTORY: Possible seizure ac tivity, chest pain, dyspnea, SOB, HTN, renal failure. COMPAR YOANA: None. TECHNIQUE: CTA of the chest is performed after intrave nous administration of 80 cc of Isovue-370 using pulmonary embolism protocol. MIP images are obtained. One or more the following dose reductio n techniques were used: Automated exposure control, adjustment of mA and/o r kV according to patient size, and use of iterative reconstruction techni que. FINDINGS: Glove Pairer image demonstrates right-sided tunnel dialysi s catheter with tip overlying right atrium. Partially visualized thyroid gland appears unremarkable. VASCULATURE: There is normal enha ncement of the main, lobar and segmental pulmonary arteries. There are no filling defects to suggest a pulmonary embolism. LYMPH NODES : No axillary, mediastinal or hilar bulky lymphadenopathy is identified. MEDIASTINUM: No mediastinal mass is noted. No aneurysmal dilatation of thoracic aorta. Atherosclerotic vascular calcifications. PLEURA/PERICARDIUM: No pericardial or pleural effusion is seen. LUNGS/AIRWAYS: The trachea and central bronchi are patent. No pneumothor ax. No focal consolidation. Bibasilar dependent changes. OSSEOUS STRUCTURES: Visualized osseous structures demonstrate mild degenerative c hanges. Bilateral anterior multiple age-indeterminate rib fractures. UPPER ABDOMEN: Visualized portion of the upper abdominal viscera appear unremarkable. IMPRESSION: No CTA evide nce to suggest a pulmonary embolism. PAGE 1 Signed Re port (CONTINUED) Name: PHILIP HALEY [facility] : 1980 Age/S: 38 / M [address] [facility] Unit #: [id number] Loc: [place], [place] [address] Phys: Jono Mena MD Acct: [id number] Dis Date: 03/08/2019 Status: DIS IN PHONE #: [phone] Exam Date: 03/01/2019 1142 FAX #: Reason: rule out PE EXAMS: CPT: [id number] CTA CHEST FOR PE <Continued> Bilateral anterior multiple age-indeterminate fractures, correlate with site of pain for acuity. No pneumothorax. at 1156 Reported and signed by: Sav Up M.D. CC: Jono Mena MD Technologist:Latrice Mclean RT(R)(CT); Ten CTDI: DLP: Trnscb Date/Time: 03/01/2019 (9956) t.SDR.ANS4 Orig Print D/T: S: 03/01/2019 (8470) PAGE 2 Signed Report - CTA CHEST FOR [id number] 11:56:00 Name: PHILIP HALEY [facility] : 1980 Age/S: 38 / M [address] Unit #: [id number] Loc: [place] [address] Phys: Jono Mena MD Acct: [id number] Dis Date: Status: REG ER PHONE #: [phone] Exam Date: 03/01/2019 1142 FAX #: Reason: rule out PE EXAMS: CPT: [id number] [place] [address] EXAMINATION: - CTA CHEST FOR PE. LOCATION: S17. HISTORY: Possible seizure activity, chest pain, dyspnea, SOB, HTN, renal failure. COMPARISON: None. TECHNIQUE: CTA of the chest is performed after intravenous administration of 80 cc of Isovue-370 using pulmonary embolism protocol. MIP images are obtained. One or more the following dose reduction techniques were used: Automated exposure control, adjustment of mA and/or kV according to patient size, and use of iterative reconstruction technique. FINDINGS: Glove Pairer image demonstrates right-sided tunnel dialysis catheter with tip overlying right atrium. Partially visualized thyroid gland appears unremarkable. VASCULATURE: There is normal enhancement of the main, lobar and segmental pulmonary arteries. There are no filling defects to suggest a pulmonary embolism. LYMPH NODES: No axillary, mediastinal or hilar bulky lymphadenopathy is identified. MEDIASTINUM: No mediastinal mass is noted. No aneurysmal dilatation of thoracic aorta. Atherosclerotic vascular calcifications. PLEURA/PERICARDIUM: No pericardial or pleural effusion is seen. LUNGS/AIRWAYS: The trachea and central bronchi are patent. No pneumothorax. No focal consolidation. Bibasilar dependent changes. OSSEOUS STRUCTURES: Visualized osseous structures demonstrate mild degenerative changes. Bilateral anterior multiple age-indeterminate rib fractures. UPPER ABDOMEN: Visualized portion of the upper abdominal viscera appear unremarkable. IMPRESSION: No CTA evidence to suggest a pulmonary embolism. PAGE 1 Signed Report (CONTINUED) Name: PHILIP HALEY : 1980 Age/S: 38 / M [address] Unit #: [id number] Loc: [place] [address] Phys: Jono Mena MD Acct: [id number] Dis Date: Status: REG ER PHONE #: [phone] Exam Date: 03/01/2019 1142 FAX #: Reason: rule out PE EXAMS: CPT: [id number] [place] [address] <Continued> Bilateral anterior multiple age-indeterminate fractures, correlate with site of pain for acuity. No pneumothorax. at 1156 Reported and signed by: Sav Up M.D. CC: Jono Mena MD Technologist:Latrice Mclean, RT(R)(CT); Ten CTDI: DLP: Trnscb Date/Time: 03/01/2019 (1156) t.SDR.ANS4 Orig Print D/T: S: 03/01/2019 (8938) PAGE 2 Signed Report [id number] 10:36:00* Test Item Value Reference Range Comments D-DIMER (test code=DDIMER) 2318 ng/mLFEU 215-500 COMPREHENSIVE METABOLIC [id number] 10:16:00* Test Item Value Reference Range Comments SODIUM (test code=NA) 137 mmol/L 134-147 POTASSIUM (test code=K) 4.7 mmol/L 3.4-5.0 CHLORIDE (test code=CL) 100 mmol/L 100-108 CARBON DIOXIDE (test code=CO2) 26 mmol/L 21-32 ANION GAP (test code=GAP) 11.0 GAP calc 4.0-15.0 GLUCOSE (test code=GLU) 129 MG/DL 70-110 BLOOD UREA NITROGEN (test code=BUN) 53 MG/DL 7-18 GLOMERULAR FILTRATION RATE (test code=GFR) 13 estGFR >60 CREATININE (test code=CREAT) 5.2 MG/DL 0.8-1.3 TOTAL PROTEIN (test code=PROT) 8.3 G/DL 6.4-8.2 ALBUMIN (test code=ALB) 2.9 G/DL 3.4-5.0 GLOBULIN (test code=GLOB) 5.4 GM/dL ALBUMIN/GLOBULIN RATIO (test code=A/G) 0.5 RATIO 1.2-2.2 CALCIUM (test code=CA) 9.3 MG/DL 8.5-10.1 BILIRUBIN TOTAL (test code=BILT) 0.70 MG/DL 0.2-1.2 SGOT/AST (test code=AST) 12 Unit/L 15-37 SGPT/ALT (test code=ALT) 13 Unit/L 12-78 ALKALINE PHOSPHATASE TOTAL (test code=ALKP) 134 Unit/L 50-136 Completed by Nursing: [id number] 10:16:00* Test Item Value Reference Range Comments TROPONIN-I (test code=TROPI) < 0.015 NG/ML 0.000-0.045 Negative: </=0.045 Positive: >/=0.046 Correlation with serial results, other cardiac markers, and clinical findings is necessary to determine the clinical significance of this result. Quantitative results using different methodologies should not be compared to one another as numerical results may varyby method. Completed by Nursing: NOCBC W/AUTO [id number] 10:09:00* Test Item Value Reference Range Comments WHITE BLOOD CELL (test code=WBC) 7.5 K/mm3 3.5-11.0 RED BLOOD CELL (test code=RBC) 3.41 M/mm3 4.70-6.10 HEMOGLOBIN (test code=HGB) 9.9 G/DL 12.3-15.9 HEMATOCRIT (test code=HCT) 29.9 % 35.8-46.7 MEAN CELL VOLUME (test code=MCV) 87.7 Fl 86.3-98.9 MEAN CELL HGB (test code=MCH) 29.0 pg 28.9-34.4 MEAN CELL HGB CONCETRATION (test code=MCHC) 33.1 G/DL 32.1-34.5 RED CELL DISTRIBUTION WIDTH (test code=RDW) 13.3 SD 11.5-14.5 PLATELET COUNT (test code=PLT) 405.0 K/mm3 150-450 MEAN PLATELET VOLUME (test code=MPV) 9.20 fL 7.0-9.6 NEUTROPHIL % (test code=NT%) 73.4 % 40-76 LYMPHOCYTE % (test code=LY%) 12.9 % 20.5-51.1 MONOCYTE % (test code=MO%) 11.3 % 1.7-9.3 EOSINOPHIL % (test code=EO%) 2.0 % 0.0-6.0 BASOPHIL % (test code=BA%) 0.4 % 0.0-2.0 NEUTROPHIL # (test code=NT#) 5.48 K/mm3 1.8-7.6 LYMPHOCYTE # (test code=LY#) 1.0 K/mm3 0.6-3.0 MONOCYTE # (test code=MO#) 0.8 K/mm3 0.2-1.5 EOSINOPHIL # (test code=EO#) 0.2 K/mm3 0.0-0.4 BASOPHIL # (test code=BA#) 0.0 K/mm3 0.0-0.2 MANUAL DIFF REQUIRED (test code=MDIFF) NO DIFF/SCN CRITERIA - XR CHEST 1 [id number] 09:49:00 Name: PHILIP HALEY [facility] : 1980 Age/S: 38 / M [address] Unit #: [id number] Loc: [place] [address] Phys: Jono Mena MD Acct: [id number] Dis Date: [id number] Status: DIS IN PHONE #: [phone] Exam Date: 03/01/2019 0944 FAX #: Reason: chest pain, dyspnea EXAMS: CPT: [id number] XR CHEST 1 V 85600 Fluoro Time: DAP (Gy m2): Air Kerma (mGy): LOCATION: T18 EXAM: CHEST 1 VIEW INDICATION: chest pain, dyspnea COMPARISON: None. TECHNIQUE: AP chest radiograph. FINDINGS: Right IJ catheter is in satisfactory position with tip in superior vena cava. Lungs are clear bilaterally without effusion. Heart is normal in size. Bones and peripheral soft tissues are unremarkable. IMPRESSION: Lungs are clear. No acute abnormality. at 0949 Reported and signed by: Alexey Pak M.D. CC: Jono Mena MD PAGE 1 Signed Report Name: PHILIP HALEY [facility] : 1980 Age/S: 38 / M [address] Unit #: [id number] Loc: [place] [address] Phys: Jono Mena MD Acct: [id number] Dis Date: [id number] Status: DIS IN PHONE #: [phone] Exam Date: 03/01/2019 0944 FAX #: Reason: chest pain, dyspnea EXAMS: CPT: [id number] XR CHEST 1 V 97875 Fluoro Time: DAP (Gy m2): Air Kerma (mGy): <Continued> Technologist: Madison Flores RT(R) Trnscb Date/Time: 03/01/2019 (948) [email or web address] Orig Print D/T: S: 03/01/2019 (0953) PAGE 2 Signed Report - XR CHEST 1 [id number] 09:49:00 Name: PHILIP HALEY [facility] : 1980 Age/S: 38 / M [address] Unit #: [id number] Loc: [place] [id number] Phys: Tiesha Mena MD Acct: [id number] Di s Date: Status: PRE ER PHONE #: Exam Date: 03/01/2019 0944 FAX #: Reason: chest pain, dyspnea EXAMS: CPT: [id number] XR CHEST 1 V 34251 Fluoro Time: DAP (Gy m2): Air Kerma (mGy): LOCATION: T18 EXAM: CHEST 1 VIEW INDICATION: chest pain, dyspnea COMPARISON: None. TECHNIQUE: AP chest radiograph. FINDINGS: Ri ght IJ catheter is in satisfactory position with tip in superior vena cava . Lungs are clear bilaterally without effusion. Heart is normal in size. Bones and peripheral soft tissues are unremarkable. IMPRES ART: Lungs are clear. No acute abnormality. at 0949 Reported and s igned by: Alexey Pak M.D. CC: Jono Mena MD PAGE 1 Signed Report [facility] 1980 Age/S: 38 / M [address] Unit #: [id number] Loc: [place] [address] Phys: Jono Mena MD Acct: [id number] Dis Date: Status: PRE ER PHONE #: [phone] Exam Date: 03/01/2019 0944 FAX #: Reason: chest pain, dyspnea EXAMS: CPT: [id number] XR CHEST 1 V 55296 Fluoro Time: DAP (Gy m2): Air Kerma (mGy): <Continued> Technologist: Madison Flores RT(R) Trnscb Phu e/Time: 03/01/2019 (0949) [email or web address] Orig Print D/T: S: (0953) PAGE 2 Signed Report - XR CHEST 1 [id number] 17:40:00 FAX: Renzo Huston MD [phone] [employer]: St: ADM Name: Romulo JIMBOPHILIP [facility] : [birth year] Age/S: 38/M [address] [facility] Unit #: [id number] Loc: .[address] [place] [address] Phys: Efra Irving MD Acct: [id number] Dis Date: Status: ADM IN PHONE #: [phone] Exam Date: 02/26/2019 1733 FAX #: [phone] Reason: [facility]. cardiac arrest; renal failure; [facility]p. PC; EXAMS: CPT CODE: [id number] XR CHEST 1 V 57711 REASON FOR EXAM: [facility] car diac arrest; renal failure; [facility]p. PC; EXAM ORDER DATE: 02/26/2019 5 :24 PM Ordering M.DReji: Efra Irving MD PROCEDU RE: - XR CHEST 1 V COMPARISON: 02/14/2019 FINDINGS: Portable AP frontal view of the chest obtained at 5:37 PM shows clear cristino gs without evidence of consolidation. There is no evidence of effusion. Th e heart size is minimally enlarged. Pulmonary vasculatures are minimally c ongested. IMPRESSION: Newly placed right IJ tunneled dialysis c atheter tip is in the SVC at 1740 Reported and signed by: Brenden myrick M.D. CC: Renzo Huston MD Technologist: NICHOLAS Tomlinson nsc Date/Time/By: 02/26/2019 (6593) : By: MegL Orig Print D/T: S: 02/26/2019 (7286) PAGE 1 Chayito d Report [id number] 16:18:00* Test Item Value Reference Range Comments GLUBED (test code=GLUBED) 114 mg/dL 74-106 Performed by certified band aid machine operator at [facility] PROTHROMBIN [id number] 14:35:00* Test Item Value Reference Range Comments PROTHROMBIN TIME PATIENT (test code=PTP) 13.1 seconds 9.0-14.0 INTERNATIONAL NORMAL RATIO (test code=INR) 1.1 0.8-1.2 The therapeutic range for oral anticoagulant therapy formost indications is an international normalized ratio (INR)of between 2.0 and 3.0. The recommended therapeutic INRrange for various clinical situations is listed below: Clinical Situation INR range Pulmonary e mbolism treatment (2.0-3.0)Venous thrombosis treatmentVenous thrombosis prophylaxis (high risk surgery)Prevention of systemic embolism from: Acute myocardial infarction Valvular heart disease Atrial fibrillation Mechanical prosthetic heart valves (2.5-3.5) IS PATIENT ON ANTICOAGULANTS? YLIST ANTICOAGULANTS HEPARINTHROMBOPLASTIN TIME [id number] 14:35:00* Test Item Value Reference Range Comments THROMBOPLASTIN TIME PARTIAL (test code=PTT) 34.5 seconds 25.0-36.5 IS PATIENT ON ANTICOAGULANTS? YLIST ANTICOAGULANTS [id number] 12:21:00* Test Item Value Reference Range Comments GLUBED (test code=GLUBED) 125 mg/dL 74-106 Performed by certified band aid machine operator at [facility] COMPREHENSIVE METABOLIC [id number] 12:02:00* Test Item Value Reference Range Comments SODIUM (test code=NA) 138 mmol/L 136-145 POTASSIUM (test code=K) 4.9 mmol/L 3.5-5.1 CHLORIDE (test code=CL) 103.0 mmol/L 98-107 CARBON DIOXIDE (test code=CO2) 27.0 mmol/L 21-32 ANION GAP (test code=GAP) 12.9 10-20 GLUCOSE (test code=GLU) 132 mg/dL 74-106 BLOOD UREA NITROGEN (test code=BUN) 72 mg/dL 7-18 GLOMERULAR FILTRATION RATE (test code=GFR) 11 mL/min >=60 Estimated GFR by using Modified MDRD formula.Chronic kidney disease is defined as either kidney damageor GFR <60 mL/min/1.73 m2 for >3 months. CREATININE (test code=CREAT) 5.90 mg/dL 0.7-1.3 BUN/CREATININE RATIO (test code=BUN/CREA) 12.2 10-20 TOTAL PROTEIN (test code=PROT) 8.0 gram/dL 6.4-8.2 ALBUMIN (test code=ALB) 2.8 g/dL 3.4-5.0 GLOBULIN (test code=GLOB) 5.2 gram/dL 2.7-4.2 ALBUMIN/GLOBULIN RATIO (test code=A/G) 0.5 0.75-1.50 CALCIUM (test code=CA) 9.5 mg/dL 8.5-10.1 BILIRUBIN TOTAL (test code=BILT) 0.60 mg/dL 0.0-1.0 SGOT/AST (test code=AST) 9 IUnit/L 15-37 SGPT/ALT (test code=ALT) 11 IUnit/L 12-78 ALKALINE PHOSPHATASE TOTAL (test code=ALKP) 132 IUnit/L 45-117 Note change in reference range due to change in reagent. COMPREHENSIVE METABOLIC [id number] 11:53:00* Test Item Value Reference Range Comments SODIUM (test code=NA) 138 mmol/L 136-145 POTASSIUM (test code=K) 4.9 mmol/L 3.5-5.1 CHLORIDE (test code=CL) 103.0 mmol/L 98-107 CARBON DIOXIDE (test code=CO2) mmol/L 21-32 ANION GAP (test code=GAP) 10-20 GLUCOSE (test code=GLU) mg/dL 74-106 BLOOD UREA NITROGEN (test code=BUN) mg/dL 7-18 GLOMERULAR FILTRATION RATE (test code=GFR) mL/min >=60 CREATININE (test code=CREAT) mg/dL 0.7-1.3 BUN/CREATININE RATIO (test code=BUN/CREA) 10-20 TOTAL PROTEIN (test code=PROT) gram/dL 6.4-8.2 ALBUMIN (test code=ALB) g/dL 3.4-5.0 GLOBULIN (test code=GLOB) gram/dL 2.7-4.2 ALBUMIN/GLOBULIN RATIO (test code=A/G) 0.75-1.50 CALCIUM (test code=CA) mg/dL 8.5-10.1 BILIRUBIN TOTAL (test code=BILT) mg/dL 0.0-1.0 SGOT/AST (test code=AST) IUnit/L 15-37 SGPT/ALT (test code=ALT) IUnit/L 12-78 ALKALINE PHOSPHATASE TOTAL (test code=ALKP) IUnit/L 45-117 CBC W/AUTO [id number] 11:16:00* Test Item Value Reference Range Comments WHITE BLOOD CELL (test code=WBC) 10.4 K/mm3 4.5-12.5 RED BLOOD CELL (test code=RBC) 3.37 mill/mm3 4.0-5.8 HEMOGLOBIN (test code=HGB) 9.6 gram/dL 13.0-17.5 RESULT VERIFIED BY REPEAT ANALYSIS HEMATOCRIT (test code=HCT) 30.2 % 42.0-52.0 MEAN CELL VOLUME (test code=MCV) 89.6 fL 80-98 MEAN CELL HGB (test code=MCH) 28.5 picogram 27.0-33.0 MEAN CELL HGB CONCETRATION (test code=MCHC) 31.8 gram/dL 33.0-36.0 RED CELL DISTRIBUTION WIDTH (test code=RDW) 13.4 % 11.6-16.2 RED CELL DISTRIBUTION WIDTH SD (test code=RDW-SD) 43.8 fL 37.0-51.0 PLATELET COUNT (test code=PLT) 474 K/mm3 150-450 MEAN PLATELET VOLUME (test code=MPV) 9.3 fL 6.7-11.0 NEUTROPHIL % (test code=NT%) 73.5 % 39.0-69.0 IMMATURE GRANULOCYTE % (test code=IG%) 0.4 % 0.0-5.0 LYMPHOCYTE % (test code=LY%) 14.7 % 25.0-55.0 MONOCYTE % (test code=MO%) 9.6 % 0.0-10.0 EOSINOPHIL % (test code=EO%) 1.5 % 0.0-5.0 BASOPHIL % (test code=BA%) 0.3 % 0.0-1.0 NUCLEATED RBC % (test code=NRBC%) 0.0 % 0-0 NEUTROPHIL # (test code=NT#) 7.62 K/mm3 1.8-7.7 IMMATURE GRANULOCYTE # (test code=IG#) 0.04 x10 3/uL 0-0.03 LYMPHOCYTE # (test code=LY#) 1.52 K/mm3 1.0-5.0 MONOCYTE # (test code=MO#) 1.00 K/mm3 0-0.8 EOSINOPHIL # (test code=EO#) 0.16 K/mm3 0.0-0.5 BASOPHIL # (test code=BA#) 0.03 K/mm3 0.0-0.2 NUCLEATED RBC # (test code=NRBC#) 0.00 K/mm3 0.0-0.1 MANUAL DIFF REQUIRED (test code=MDIFF) NO [id number] 05:31:00* Test Item Value Reference Range Comments GLUBED (test code=GLUBED) 122 mg/dL 74-106 Performed by certified band aid machine operator at [facility] [id number] 00:39:00* Test Item Value Reference Range Comments GLUBED (test code=GLUBED) 115 mg/dL 74-106 Performed by certified band aid machine operator at [facility] [id number] 17:13:00* Test Item Value Reference Range Comments GLUBED (test code=GLUBED) 119 mg/dL 74-106 Performed by certified band aid machine operator at [facility] [id number] 17:13:00* Test Item Value Reference Range Comments GLUBED (test code=GLUBED) 155 mg/dL 74-106 Performed by certified band aid machine operator at [facility] BASIC METABOLIC [id number] 13:07:00* Test Item Value Reference Range Comments SODIUM (test code=NA) 138 mmol/L 136-145 POTASSIUM (test code=K) 4.6 mmol/L 3.5-5.1 CHLORIDE (test code=CL) 103.0 mmol/L 98-107 CARBON DIOXIDE (test code=CO2) 28.0 mmol/L 21-32 ANION GAP (test code=GAP) 11.6 10-20 GLUCOSE (test code=GLU) 163 mg/dL 74-106 BLOOD UREA NITROGEN (test code=BUN) 62 mg/dL 7-18 GLOMERULAR FILTRATION RATE (test code=GFR) 13 mL/min >=60 Estimated GFR by using Modified MDRD formula.Chronic kidney disease is defined as either kidney damageor GFR <60 mL/min/1.73 m2 for >3 months. CREATININE (test code=CREAT) 5.00 mg/dL 0.7-1.3 BUN/CREATININE RATIO (test code=BUN/CREA) 12.4 10-20 CALCIUM (test code=CA) 9.1 mg/dL 8.5-10.1 BASIC METABOLIC [id number] 12:57:00* Test Item Value Reference Range Comments SODIUM (test code=NA) 138 mmol/L 136-145 POTASSIUM (test code=K) 4.6 mmol/L 3.5-5.1 CHLORIDE (test code=CL) 103.0 mmol/L 98-107 CARBON DIOXIDE (test code=CO2) mmol/L 21-32 ANION GAP (test code=GAP) 10-20 GLUCOSE (test code=GLU) mg/dL 74-106 BLOOD UREA NITROGEN (test code=BUN) mg/dL 7-18 GLOMERULAR FILTRATION RATE (test code=GFR) mL/min >=60 CREATININE (test code=CREAT) mg/dL 0.7-1.3 BUN/CREATININE RATIO (test code=BUN/CREA) 10-20 CALCIUM (test code=CA) mg/dL 8.5-10.1 CBC W/AUTO [id number] 11:59:00* Test Item Value Reference Range Comments WHITE BLOOD CELL (test code=WBC) 10.0 K/mm3 4.5-12.5 RED BLOOD CELL (test code=RBC) 2.51 mill/mm3 4.0-5.8 HEMOGLOBIN (test code=HGB) 7.1 gram/dL 13.0-17.5 HEMATOCRIT (test code=HCT) 22.5 % 42.0-52.0 MEAN CELL VOLUME (test code=MCV) 89.6 fL 80-98 MEAN CELL HGB (test code=MCH) 28.3 picogram 27.0-33.0 MEAN CELL HGB CONCETRATION (test code=MCHC) 31.6 gram/dL 33.0-36.0 RED CELL DISTRIBUTION WIDTH (test code=RDW) 13.4 % 11.6-16.2 RED CELL DISTRIBUTION WIDTH SD (test code=RDW-SD) 43.8 fL 37.0-51.0 PLATELET COUNT (test code=PLT) 450 K/mm3 150-450 MEAN PLATELET VOLUME (test code=MPV) 9.5 fL 6.7-11.0 NEUTROPHIL % (test code=NT%) 77.1 % 39.0-69.0 IMMATURE GRANULOCYTE % (test code=IG%) 0.6 % 0.0-5.0 LYMPHOCYTE % (test code=LY%) 11.6 % 25.0-55.0 MONOCYTE % (test code=MO%) 9.1 % 0.0-10.0 EOSINOPHIL % (test code=EO%) 1.4 % 0.0-5.0 BASOPHIL % (test code=BA%) 0.2 % 0.0-1.0 NUCLEATED RBC % (test code=NRBC%) 0.0 % 0-0 NEUTROPHIL # (test code=NT#) 7.74 K/mm3 1.8-7.7 IMMATURE GRANULOCYTE # (test code=IG#) 0.06 x10 3/uL 0-0.03 LYMPHOCYTE # (test code=LY#) 1.16 K/mm3 1.0-5.0 MONOCYTE # (test code=MO#) 0.91 K/mm3 0-0.8 EOSINOPHIL # (test code=EO#) 0.14 K/mm3 0.0-0.5 BASOPHIL # (test code=BA#) 0.02 K/mm3 0.0-0.2 NUCLEATED RBC # (test code=NRBC#) 0.00 K/mm3 0.0-0.1 COMPREHENSIVE METABOLIC [id number] 05:50:00* Test Item Value Reference Range Comments SODIUM (test code=NA) 137 mmol/L 136-145 POTASSIUM (test code=K) 4.7 mmol/L 3.5-5.1 CHLORIDE (test code=CL) 103.0 mmol/L 98-107 CARBON DIOXIDE (test code=CO2) 25.0 mmol/L 21-32 ANION GAP (test code=GAP) 13.7 10-20 GLUCOSE (test code=GLU) 132 mg/dL 74-106 BLOOD UREA NITROGEN (test code=BUN) 68 mg/dL 7-18 RESULT VERIFIED BY REPEAT ANALYSIS GLOMERULAR FILTRATION RATE (test code=GFR) 11 mL/min >=60 Estimated GFR by using Modified MDRD formula.Chronic kidney disease is defined as either kidney damageor GFR <60 mL/min/1.73 m2 for >3 months. CREATININE (test code=CREAT) 5.90 mg/dL 0.7-1.3 BUN/CREATININE RATIO (test code=BUN/CREA) 11.5 10-20 TOTAL PROTEIN (test code=PROT) 7.9 gram/dL 6.4-8.2 ALBUMIN (test code=ALB) 2.8 g/dL 3.4-5.0 GLOBULIN (test code=GLOB) 5.1 gram/dL 2.7-4.2 ALBUMIN/GLOBULIN RATIO (test code=A/G) 0.6 0.75-1.50 CALCIUM (test code=CA) 9.6 mg/dL 8.5-10.1 BILIRUBIN TOTAL (test code=BILT) 0.60 mg/dL 0.0-1.0 SGOT/AST (test code=AST) 8 IUnit/L 15-37 SGPT/ALT (test code=ALT) 12 IUnit/L 12-78 ALKALINE PHOSPHATASE TOTAL (test code=ALKP) 129 IUnit/L 45-117 Note change in reference range due to change in reagent. COMPREHENSIVE METABOLIC [id number] 05:14:00* Test Item Value Reference Range Comments SODIUM (test code=NA) 137 mmol/L 136-145 POTASSIUM (test code=K) 4.7 mmol/L 3.5-5.1 CHLORIDE (test code=CL) 103.0 mmol/L 98-107 CARBON DIOXIDE (test code=CO2) mmol/L 21-32 ANION GAP (test code=GAP) 10-20 GLUCOSE (test code=GLU) mg/dL 74-106 BLOOD UREA NITROGEN (test code=BUN) mg/dL 7-18 GLOMERULAR FILTRATION RATE (test code=GFR) mL/min >=60 CREATININE (test code=CREAT) mg/dL 0.7-1.3 BUN/CREATININE RATIO (test code=BUN/CREA) 10-20 TOTAL PROTEIN (test code=PROT) gram/dL 6.4-8.2 ALBUMIN (test code=ALB) g/dL 3.4-5.0 GLOBULIN (test code=GLOB) gram/dL 2.7-4.2 ALBUMIN/GLOBULIN RATIO (test code=A/G) 0.75-1.50 CALCIUM (test code=CA) mg/dL 8.5-10.1 BILIRUBIN TOTAL (test code=BILT) mg/dL 0.0-1.0 SGOT/AST (test code=AST) IUnit/L 15-37 SGPT/ALT (test code=ALT) IUnit/L 12-78 ALKALINE PHOSPHATASE TOTAL (test code=ALKP) IUnit/L 45-117 [id number] 21:00:00* Test Item Value Reference Range Comments GLUBED (test code=GLUBED) 140 mg/dL 74-106 Performed by certified band aid machine operator at [facility] [id number] 17:31:00* Test Item Value Reference Range Comments GLUBED (test code=GLUBED) 130 mg/dL 74-106 Performed by certified band aid machine operator at [facility] COMPREHENSIVE METABOLIC [id number] 12:31:00* Test Item Value Reference Range Comments SODIUM (test code=NA) 137 mmol/L 136-145 POTASSIUM (test code=K) 4.7 mmol/L 3.5-5.1 CHLORIDE (test code=CL) 102.0 mmol/L 98-107 CARBON DIOXIDE (test code=CO2) 27.0 mmol/L 21-32 ANION GAP (test code=GAP) 12.7 10-20 GLUCOSE (test code=GLU) 159 mg/dL 74-106 BLOOD UREA NITROGEN (test code=BUN) 56 mg/dL 7-18 GLOMERULAR FILTRATION RATE (test code=GFR) 12 mL/min >=60 Estimated GFR by using Modified MDRD formula.Chronic kidney disease is defined as either kidney damageor GFR <60 mL/min/1.73 m2 for >3 months. CREATININE (test code=CREAT) 5.20 mg/dL 0.7-1.3 BUN/CREATININE RATIO (test code=BUN/CREA) 10.8 10-20 TOTAL PROTEIN (test code=PROT) 8.1 gram/dL 6.4-8.2 ALBUMIN (test code=ALB) 2.8 g/dL 3.4-5.0 GLOBULIN (test code=GLOB) 5.3 gram/dL 2.7-4.2 ALBUMIN/GLOBULIN RATIO (test code=A/G) 0.5 0.75-1.50 CALCIUM (test code=CA) 9.4 mg/dL 8.5-10.1 BILIRUBIN TOTAL (test code=BILT) 0.60 mg/dL 0.0-1.0 SGOT/AST (test code=AST) 8 IUnit/L 15-37 SGPT/ALT (test code=ALT) 13 IUnit/L 12-78 ALKALINE PHOSPHATASE TOTAL (test code=ALKP) 127 IUnit/L 45-117 Note change in reference range due to change in reagent. COMPREHENSIVE METABOLIC [id number] 12:24:00* Test Item Value Reference Range Comments SODIUM (test code=NA) 137 mmol/L 136-145 POTASSIUM (test code=K) 4.7 mmol/L 3.5-5.1 CHLORIDE (test code=CL) 102.0 mmol/L 98-107 CARBON DIOXIDE (test code=CO2) mmol/L 21-32 ANION GAP (test code=GAP) 10-20 GLUCOSE (test code=GLU) mg/dL 74-106 BLOOD UREA NITROGEN (test code=BUN) mg/dL 7-18 GLOMERULAR FILTRATION RATE (test code=GFR) mL/min >=60 CREATININE (test code=CREAT) mg/dL 0.7-1.3 BUN/CREATININE RATIO (test code=BUN/CREA) 10-20 TOTAL PROTEIN (test code=PROT) gram/dL 6.4-8.2 ALBUMIN (test code=ALB) g/dL 3.4-5.0 GLOBULIN (test code=GLOB) gram/dL 2.7-4.2 ALBUMIN/GLOBULIN RATIO (test code=A/G) 0.75-1.50 CALCIUM (test code=CA) mg/dL 8.5-10.1 BILIRUBIN TOTAL (test code=BILT) mg/dL 0.0-1.0 SGOT/AST (test code=AST) IUnit/L 15-37 SGPT/ALT (test code=ALT) IUnit/L 12-78 ALKALINE PHOSPHATASE TOTAL (test code=ALKP) IUnit/L 45-117 [id number] 12:07:00* Test Item Value Reference Range Comments GLUBED (test code=GLUBED) 160 mg/dL 74-106 Performed by certified band aid machine operator at [facility] [id number] 07:24:00* Test Item Value Reference Range Comments GLUBED (test code=GLUBED) 119 mg/dL 74-106 Performed by certified band aid machine operator at [facility] [id number] 23:38:00* Test Item Value Reference Range Comments GLUBED (test code=GLUBED) 127 mg/dL 74-106 Performed by certified band aid machine operator at [facility] [id number] 17:11:00* Test Item Value Reference Range Comments GLUBED (test code=GLUBED) 130 mg/dL 74-106 Performed by certified band aid machine operator at [facility] - XR SWLW FUNC W/C [id number] 10:41:00 FAX: Renzo Huston MD [phone] [employer]: [address] St: ADM FAX: Ayala Nino MD [phone] Name: PHILIP HALEY [facility] : 1980 Age/S: 38/M [address] Unit #: [id number] Loc: V.[address] [place] [address] Phys: Ayaal Avila MD Acct: [id number] Dis Date: Status: ADM IN PHONE #: [phone] Exam Date: 02/23/2019 0950 FAX #: [phone] Reason: DIFFICULTS SWALLOWING EXAMS: CPT CODE: [id number] XR SWLW FUNC W/C V 64974 HISTORY: Aspiration and difficulty swallowing. This study was performed in concert with the speech pathologist. Vary ing grades of barium were administered. No aspiration with larynge al penetration. IMPRESSION: No aspiration with laryngeal penetration. For detailed evaluation please see the accompanying sheet provided by the speech therapist. Fluoroscopy time utilized was 52.1 seconds and 8 images were obtained. at 1041 Reported and signed by: Dae Willson M.D. CC: Renzo Huston MD; Ayala Avila MD Technologist: ANDREW KNOX RT(R); RT LIVAN(R) Trnwvrd Date/Time/By: 02/23/2019 ( 1041) : By: [email or web address] Orig Print D/T: S: 02/23/2019 (1041) PAGE 1 Signed Report [id number] 06:42:00* Test Item Value Reference Range Comments GLUBED (test code=GLUBED) 149 mg/dL 74-106 Performed by certified band aid machine operator at [facility] COMPREHENSIVE METABOLIC [id number] 06:12:00* Test Item Value Reference Range Comments SODIUM (test code=NA) 137 mmol/L 136-145 POTASSIUM (test code=K) 4.5 mmol/L 3.5-5.1 CHLORIDE (test code=CL) 100.0 mmol/L 98-107 CARBON DIOXIDE (test code=CO2) 24.0 mmol/L 21-32 ANION GAP (test code=GAP) 17.5 10-20 GLUCOSE (test code=GLU) 157 mg/dL 74-106 BLOOD UREA NITROGEN (test code=BUN) 102 mg/dL 7-18 GLOMERULAR FILTRATION RATE (test code=GFR) 9 mL/min >=60 Estimated GFR by using Modified MDRD formula.Chronic kidney disease is defined as either kidney damageor GFR <60 mL/min/1.73 m2 for >3 months. CREATININE (test code=CREAT) 7.00 mg/dL 0.7-1.3 BUN/CREATININE RATIO (test code=BUN/CREA) 14.6 10-20 TOTAL PROTEIN (test code=PROT) 7.6 gram/dL 6.4-8.2 ALBUMIN (test code=ALB) 2.7 g/dL 3.4-5.0 GLOBULIN (test code=GLOB) 4.9 gram/dL 2.7-4.2 ALBUMIN/GLOBULIN RATIO (test code=A/G) 0.6 0.75-1.50 CALCIUM (test code=CA) 8.8 mg/dL 8.5-10.1 BILIRUBIN TOTAL (test code=BILT) 0.60 mg/dL 0.0-1.0 SGOT/AST (test code=AST) 9 IUnit/L 15-37 SGPT/ALT (test code=ALT) 15 IUnit/L 12-78 ALKALINE PHOSPHATASE TOTAL (test code=ALKP) 118 IUnit/L 45-117 Note change in reference range due to change in reagent. CBC W/AUTO [id number] 06:09:00* Test Item Value Reference Range Comments WHITE BLOOD CELL (test code=WBC) 11.5 K/mm3 4.5-12.5 RED BLOOD CELL (test code=RBC) 2.73 mill/mm3 4.0-5.8 HEMOGLOBIN (test code=HGB) 7.9 gram/dL 13.0-17.5 HEMATOCRIT (test code=HCT) 23.8 % 42.0-52.0 MEAN CELL VOLUME (test code=MCV) 87.2 fL 80-98 MEAN CELL HGB (test code=MCH) 28.9 picogram 27.0-33.0 MEAN CELL HGB CONCETRATION (test code=MCHC) 33.2 gram/dL 33.0-36.0 RED CELL DISTRIBUTION WIDTH (test code=RDW) 13.2 % 11.6-16.2 RED CELL DISTRIBUTION WIDTH SD (test code=RDW-SD) 41.2 fL 37.0-51.0 PLATELET COUNT (test code=PLT) 420 K/mm3 150-450 RESULT VERIFIED BY REPEAT ANALYSIS MEAN PLATELET VOLUME (test code=MPV) 9.8 fL 6.7-11.0 NEUTROPHIL % (test code=NT%) 78.2 % 39.0-69.0 IMMATURE GRANULOCYTE % (test code=IG%) 0.6 % 0.0-5.0 LYMPHOCYTE % (test code=LY%) 11.4 % 25.0-55.0 MONOCYTE % (test code=MO%) 8.3 % 0.0-10.0 EOSINOPHIL % (test code=EO%) 1.3 % 0.0-5.0 BASOPHIL % (test code=BA%) 0.2 % 0.0-1.0 NUCLEATED RBC % (test code=NRBC%) 0.0 % 0-0 NEUTROPHIL # (test code=NT#) 9.02 K/mm3 1.8-7.7 IMMATURE GRANULOCYTE # (test code=IG#) 0.07 x10 3/uL 0-0.03 LYMPHOCYTE # (test code=LY#) 1.32 K/mm3 1.0-5.0 MONOCYTE # (test code=MO#) 0.96 K/mm3 0-0.8 EOSINOPHIL # (test code=EO#) 0.15 K/mm3 0.0-0.5 BASOPHIL # (test code=BA#) 0.02 K/mm3 0.0-0.2 NUCLEATED RBC # (test code=NRBC#) 0.00 K/mm3 0.0-0.1 COMPREHENSIVE METABOLIC [id number] 06:04:00* Test Item Value Reference Range Comments SODIUM (test code=NA) 137 mmol/L 136-145 POTASSIUM (test code=K) 4.5 mmol/L 3.5-5.1 CHLORIDE (test code=CL) 100.0 mmol/L 98-107 CARBON DIOXIDE (test code=CO2) mmol/L 21-32 ANION GAP (test code=GAP) 10-20 GLUCOSE (test code=GLU) mg/dL 74-106 BLOOD UREA NITROGEN (test code=BUN) mg/dL 7-18 GLOMERULAR FILTRATION RATE (test code=GFR) mL/min >=60 CREATININE (test code=CREAT) mg/dL 0.7-1.3 BUN/CREATININE RATIO (test code=BUN/CREA) 10-20 TOTAL PROTEIN (test code=PROT) gram/dL 6.4-8.2 ALBUMIN (test code=ALB) g/dL 3.4-5.0 GLOBULIN (test code=GLOB) gram/dL 2.7-4.2 ALBUMIN/GLOBULIN RATIO (test code=A/G) 0.75-1.50 CALCIUM (test code=CA) mg/dL 8.5-10.1 BILIRUBIN TOTAL (test code=BILT) mg/dL 0.0-1.0 SGOT/AST (test code=AST) IUnit/L 15-37 SGPT/ALT (test code=ALT) IUnit/L 12-78 ALKALINE PHOSPHATASE TOTAL (test code=ALKP) IUnit/L 45-117 [id number] 23:25:00* Test Item Value Reference Range Comments GLUBED (test code=GLUBED) 144 mg/dL 74-106 Performed by certified band aid machine operator at [facility] - XR RIBS BI 3 [id number] 19:14:00 FAX: Renzo Huston MD [phone] [employer]: [address]: [facility] FAX: Ayala Nino MD [phone] Name: TERAPHILIP [facility] : 1980 Age/S: 38/M [address] [facility] Unit #: [id number] Loc: V.[address] [place] [address] Phys: Ayala Avila MD Acct: [id number] Dis Date: Status: ADM IN PHONE #: [phone] Exam Date: 02/22/2019 1901 FAX #: [phone] Reason: chest pain ,had CPR EXAMS: CPT CODE: [id number] XR RIBS BI 3 V [id number] EXAM: Bilateral rib series, 8 views; INFORMATION: HISTORY of cardiac arrest; chest pain after CPR; IMPRESSION: 1. Ribs are intact; no evidence of fracture. 2. No evidence of pu lmonary contusion or pneumothorax. 3. The tip of a right IJ central norman e/dialysis catheter is positioned in the SVC. Elect ronically Signed by Sierra Irving on 02/23/20 19 at 1914 Reported and signed by: Efra slade M.D. CC: Renzo Huston MD; Ariel Avila MD Technologist: NICHOLAS SPEAR; Keeley Church(R) Trnscrd Date/Time/By: 02/22/2019 (1913) : By: CrystalGRW Orig Print D/T: S: 02/22/2019 (1916) PAGE 1 Signed Report [id number] 17:40:00* Test Item Value Reference Range Comments GLUBED (test code=GLUBED) 149 mg/dL 74-106 Performed by certified band aid machine operator at [facility] [id number] 12:38:00* Test Item Value Reference Range Comments GLUBED (test code=GLUBED) 145 mg/dL 74-106 Performed by certified band aid machine operator at [facility] [facility] COMPREHENSIVE METABOLIC [id number] 12:03:00* Test Item Value Reference Range Comments SODIUM (test code=NA) 136 mmol/L 136-145 POTASSIUM (test code=K) 4.9 mmol/L 3.5-5.1 CHLORIDE (test code=CL) 98.0 mmol/L 98-107 CARBON DIOXIDE (test code=CO2) 26.0 mmol/L 21-32 ANION GAP (test code=GAP) 16.9 10-20 GLUCOSE (test code=GLU) 169 mg/dL 74-106 BLOOD UREA NITROGEN (test code=BUN) 89 mg/dL 7-18 GLOMERULAR FILTRATION RATE (test code=GFR) 8 mL/min >=60 Estimated GFR by using Modified MDRD formula.Chronic kidney disease is defined as either kidney damageor GFR <60 mL/min/1.73 m2 for >3 months. CREATININE (test code=CREAT) 7.40 mg/dL 0.7-1.3 BUN/CREATININE RATIO (test code=BUN/CREA) 12.0 10-20 TOTAL PROTEIN (test code=PROT) 7.2 gram/dL 6.4-8.2 ALBUMIN (test code=ALB) 2.8 g/dL 3.4-5.0 GLOBULIN (test code=GLOB) 4.4 gram/dL 2.7-4.2 ALBUMIN/GLOBULIN RATIO (test code=A/G) 0.6 0.75-1.50 CALCIUM (test code=CA) 8.9 mg/dL 8.5-10.1 BILIRUBIN TOTAL (test code=BILT) 0.60 mg/dL 0.0-1.0 SGOT/AST (test code=AST) 9 IUnit/L 15-37 SGPT/ALT (test code=ALT) 16 IUnit/L 12-78 ALKALINE PHOSPHATASE TOTAL (test code=ALKP) 126 IUnit/L 45-117 Note change in reference range due to change in reagent. COMPREHENSIVE METABOLIC [id number] 11:55:00* Test Item Value Reference Range Comments SODIUM (test code=NA) 136 mmol/L 136-145 POTASSIUM (test code=K) 4.9 mmol/L 3.5-5.1 CHLORIDE (test code=CL) 98.0 mmol/L 98-107 CARBON DIOXIDE (test code=CO2) mmol/L 21-32 ANION GAP (test code=GAP) 10-20 GLUCOSE (test code=GLU) mg/dL 74-106 BLOOD UREA NITROGEN (test code=BUN) mg/dL 7-18 GLOMERULAR FILTRATION RATE (test code=GFR) mL/min >=60 CREATININE (test code=CREAT) mg/dL 0.7-1.3 BUN/CREATININE RATIO (test code=BUN/CREA) 10-20 TOTAL PROTEIN (test code=PROT) gram/dL 6.4-8.2 ALBUMIN (test code=ALB) g/dL 3.4-5.0 GLOBULIN (test code=GLOB) gram/dL 2.7-4.2 ALBUMIN/GLOBULIN RATIO (test code=A/G) 0.75-1.50 CALCIUM (test code=CA) mg/dL 8.5-10.1 BILIRUBIN TOTAL (test code=BILT) mg/dL 0.0-1.0 SGOT/AST (test code=AST) IUnit/L 15-37 SGPT/ALT (test code=ALT) IUnit/L 12-78 ALKALINE PHOSPHATASE TOTAL (test code=ALKP) IUnit/L 45-117 [id number] 05:56:00* Test Item Value Reference Range Comments GLUBED (test code=GLUBED) 147 mg/dL 74-106 Performed by certified band aid machine operator at [facility] [id number] 21:59:00* Test Item Value Reference Range Comments GLUBED (test code=GLUBED) 133 mg/dL 74-106 Performed by certified band aid machine operator at [facility] [id number] 19:58:00* Test Item Value Reference Range Comments GLUBED (test code=GLUBED) 144 mg/dL 74-106 Performed by certified band aid machine operator at [facility] COMPREHENSIVE METABOLIC [id number] 18:06:00* Test Item Value Reference Range Comments SODIUM (test code=NA) 135 mmol/L 136-145 POTASSIUM (test code=K) 4.2 mmol/L 3.5-5.1 CHLORIDE (test code=CL) 99.0 mmol/L 98-107 CARBON DIOXIDE (test code=CO2) 25.0 mmol/L 21-32 ANION GAP (test code=GAP) 15.2 10-20 GLUCOSE (test code=GLU) 170 mg/dL 74-106 BLOOD UREA NITROGEN (test code=BUN) 70 mg/dL 7-18 RESULT VERIFIED BY REPEAT ANALYSIS GLOMERULAR FILTRATION RATE (test code=GFR) 9 mL/min >=60 Estimated GFR by using Modified MDRD formula.Chronic kidney disease is defined as either kidney damageor GFR <60 mL/min/1.73 m2 for >3 months. CREATININE (test code=CREAT) 6.70 mg/dL 0.7-1.3 BUN/CREATININE RATIO (test code=BUN/CREA) 10.4 10-20 TOTAL PROTEIN (test code=PROT) 7.4 gram/dL 6.4-8.2 ALBUMIN (test code=ALB) 2.7 g/dL 3.4-5.0 GLOBULIN (test code=GLOB) 4.7 gram/dL 2.7-4.2 ALBUMIN/GLOBULIN RATIO (test code=A/G) 0.6 0.75-1.50 CALCIUM (test code=CA) 8.9 mg/dL 8.5-10.1 BILIRUBIN TOTAL (test code=BILT) 0.60 mg/dL 0.0-1.0 SGOT/AST (test code=AST) 9 IUnit/L 15-37 SGPT/ALT (test code=ALT) 16 IUnit/L 12-78 ALKALINE PHOSPHATASE TOTAL (test code=ALKP) 107 IUnit/L 45-117 Note change in reference range due to change in reagent. [id number] 16:21:00* Test Item Value Reference Range Comments GLUBED (test code=GLUBED) 141 mg/dL 74-106 Performed by certified band aid machine operator at [facility] COMPREHENSIVE METABOLIC [id number] 13:06:00* Test Item Value Reference Range Comments SODIUM (test code=NA) 135 mmol/L 136-145 POTASSIUM (test code=K) 4.2 mmol/L 3.5-5.1 CHLORIDE (test code=CL) 99.0 mmol/L 98-107 CARBON DIOXIDE (test code=CO2) 25.0 mmol/L 21-32 ANION GAP (test code=GAP) 15.2 10-20 GLUCOSE (test code=GLU) 170 mg/dL 74-106 BLOOD UREA NITROGEN (test code=BUN) 70 mg/dL 7-18 GLOMERULAR FILTRATION RATE (test code=GFR) 9 mL/min >=60 Estimated GFR by using Modified MDRD formula.Chronic kidney disease is defined as either kidney damageor GFR <60 mL/min/1.73 m2 for >3 months. CREATININE (test code=CREAT) 6.70 mg/dL 0.7-1.3 BUN/CREATININE RATIO (test code=BUN/CREA) 10.4 10-20 TOTAL PROTEIN (test code=PROT) 7.4 gram/dL 6.4-8.2 ALBUMIN (test code=ALB) 2.7 g/dL 3.4-5.0 GLOBULIN (test code=GLOB) 4.7 gram/dL 2.7-4.2 ALBUMIN/GLOBULIN RATIO (test code=A/G) 0.6 0.75-1.50 CALCIUM (test code=CA) 8.9 mg/dL 8.5-10.1 BILIRUBIN TOTAL (test code=BILT) 0.60 mg/dL 0.0-1.0 SGOT/AST (test code=AST) 9 IUnit/L 15-37 SGPT/ALT (test code=ALT) 16 IUnit/L 12-78 ALKALINE PHOSPHATASE TOTAL (test code=ALKP) 107 IUnit/L 45-117 Note change in reference range due to change in reagent. COMPREHENSIVE METABOLIC [id number] 12:57:00* Test Item Value Reference Range Comments SODIUM (test code=NA) 135 mmol/L 136-145 POTASSIUM (test code=K) 4.2 mmol/L 3.5-5.1 CHLORIDE (test code=CL) 99.0 mmol/L 98-107 CARBON DIOXIDE (test code=CO2) mmol/L 21-32 ANION GAP (test code=GAP) 10-20 GLUCOSE (test code=GLU) mg/dL 74-106 BLOOD UREA NITROGEN (test code=BUN) mg/dL 7-18 GLOMERULAR FILTRATION RATE (test code=GFR) mL/min >=60 CREATININE (test code=CREAT) mg/dL 0.7-1.3 BUN/CREATININE RATIO (test code=BUN/CREA) 10-20 TOTAL PROTEIN (test code=PROT) gram/dL 6.4-8.2 ALBUMIN (test code=ALB) g/dL 3.4-5.0 GLOBULIN (test code=GLOB) gram/dL 2.7-4.2 ALBUMIN/GLOBULIN RATIO (test code=A/G) 0.75-1.50 CALCIUM (test code=CA) mg/dL 8.5-10.1 BILIRUBIN TOTAL (test code=BILT) mg/dL 0.0-1.0 SGOT/AST (test code=AST) IUnit/L 15-37 SGPT/ALT (test code=ALT) IUnit/L 12-78 ALKALINE PHOSPHATASE TOTAL (test code=ALKP) IUnit/L 45-117 [id number] 11:28:00* Test Item Value Reference Range Comments GLUBED (test code=GLUBED) 93 mg/dL 74-106 Performed by certified band aid machine operator at [facility] CBC W/AUTO [id number] 07:14:00* Test Item Value Reference Range Comments WHITE BLOOD CELL (test code=WBC) 11.8 K/mm3 4.5-12.5 RED BLOOD CELL (test code=RBC) 2.79 mill/mm3 4.0-5.8 HEMOGLOBIN (test code=HGB) 7.8 gram/dL 13.0-17.5 HEMATOCRIT (test code=HCT) 23.8 % 42.0-52.0 MEAN CELL VOLUME (test code=MCV) 85.3 fL 80-98 MEAN CELL HGB (test code=MCH) 28.0 picogram 27.0-33.0 MEAN CELL HGB CONCETRATION (test code=MCHC) 32.8 gram/dL 33.0-36.0 RED CELL DISTRIBUTION WIDTH (test code=RDW) 13.2 % 11.6-16.2 RED CELL DISTRIBUTION WIDTH SD (test code=RDW-SD) 39.8 fL 37.0-51.0 PLATELET COUNT (test code=PLT) 299 K/mm3 150-450 MEAN PLATELET VOLUME (test code=MPV) 10.2 fL 6.7-11.0 NEUTROPHIL % (test code=NT%) 75.2 % 39.0-69.0 IMMATURE GRANULOCYTE % (test code=IG%) 0.6 % 0.0-5.0 LYMPHOCYTE % (test code=LY%) 13.8 % 25.0-55.0 MONOCYTE % (test code=MO%) 8.8 % 0.0-10.0 EOSINOPHIL % (test code=EO%) 1.3 % 0.0-5.0 BASOPHIL % (test code=BA%) 0.3 % 0.0-1.0 NUCLEATED RBC % (test code=NRBC%) 0.0 % 0-0 NEUTROPHIL # (test code=NT#) 8.87 K/mm3 1.8-7.7 IMMATURE GRANULOCYTE # (test code=IG#) 0.07 x10 3/uL 0-0.03 LYMPHOCYTE # (test code=LY#) 1.62 K/mm3 1.0-5.0 MONOCYTE # (test code=MO#) 1.03 K/mm3 0-0.8 EOSINOPHIL # (test code=EO#) 0.15 K/mm3 0.0-0.5 BASOPHIL # (test code=BA#) 0.03 K/mm3 0.0-0.2 NUCLEATED RBC # (test code=NRBC#) 0.00 K/mm3 0.0-0.1 MANUAL DIFF REQUIRED (test code=MDIFF) NO [id number] 07:08:00* Test Item Value Reference Range Comments GLUBED (test code=GLUBED) 175 mg/dL 74-106 Performed by certified band aid machine operator at [facility] [id number] 00:14:00* Test Item Value Reference Range Comments GLUBED (test code=GLUBED) 154 mg/dL 74-106 Performed by certified band aid machine operator at [facility] [id number] 16:24:00* Test Item Value Reference Range Comments GLUBED (test code=GLUBED) 144 mg/dL 74-106 Performed by certified band aid machine operator at [facility] COMPREHENSIVE METABOLIC [id number] 12:27:00* Test Item Value Reference Range Comments SODIUM (test code=NA) 136 mmol/L 136-145 POTASSIUM (test code=K) 4.0 mmol/L 3.5-5.1 CHLORIDE (test code=CL) 99.0 mmol/L 98-107 CARBON DIOXIDE (test code=CO2) 26.0 mmol/L 21-32 ANION GAP (test code=GAP) 15.0 10-20 GLUCOSE (test code=GLU) 183 mg/dL 74-106 BLOOD UREA NITROGEN (test code=BUN) 55 mg/dL 7-18 GLOMERULAR FILTRATION RATE (test code=GFR) 11 mL/min >=60 Estimated GFR by using Modified MDRD formula.Chronic kidney disease is defined as either kidney damageor GFR <60 mL/min/1.73 m2 for >3 months. CREATININE (test code=CREAT) 5.60 mg/dL 0.7-1.3 BUN/CREATININE RATIO (test code=BUN/CREA) 9.8 10-20 TOTAL PROTEIN (test code=PROT) 6.7 gram/dL 6.4-8.2 ALBUMIN (test code=ALB) 2.7 g/dL 3.4-5.0 GLOBULIN (test code=GLOB) 4.0 gram/dL 2.7-4.2 ALBUMIN/GLOBULIN RATIO (test code=A/G) 0.7 0.75-1.50 CALCIUM (test code=CA) 8.5 mg/dL 8.5-10.1 BILIRUBIN TOTAL (test code=BILT) 0.60 mg/dL 0.0-1.0 SGOT/AST (test code=AST) 11 IUnit/L 15-37 SGPT/ALT (test code=ALT) 19 IUnit/L 12-78 ALKALINE PHOSPHATASE TOTAL (test code=ALKP) 112 IUnit/L 45-117 Note change in reference range due to change in reagent. COMPREHENSIVE METABOLIC [id number] 12:19:00* Test Item Value Reference Range Comments SODIUM (test code=NA) 136 mmol/L 136-145 POTASSIUM (test code=K) 4.0 mmol/L 3.5-5.1 CHLORIDE (test code=CL) 99.0 mmol/L 98-107 CARBON DIOXIDE (test code=CO2) mmol/L 21-32 ANION GAP (test code=GAP) 10-20 GLUCOSE (test code=GLU) mg/dL 74-106 BLOOD UREA NITROGEN (test code=BUN) mg/dL 7-18 GLOMERULAR FILTRATION RATE (test code=GFR) mL/min >=60 CREATININE (test code=CREAT) mg/dL 0.7-1.3 BUN/CREATININE RATIO (test code=BUN/CREA) 10-20 TOTAL PROTEIN (test code=PROT) gram/dL 6.4-8.2 ALBUMIN (test code=ALB) g/dL 3.4-5.0 GLOBULIN (test code=GLOB) gram/dL 2.7-4.2 ALBUMIN/GLOBULIN RATIO (test code=A/G) 0.75-1.50 CALCIUM (test code=CA) mg/dL 8.5-10.1 BILIRUBIN TOTAL (test code=BILT) mg/dL 0.0-1.0 SGOT/AST (test code=AST) IUnit/L 15-37 SGPT/ALT (test code=ALT) IUnit/L 12-78 ALKALINE PHOSPHATASE TOTAL (test code=ALKP) IUnit/L 45-117 CBC W/AUTO [id number] 11:48:00* Test Item Value Reference Range Comments WHITE BLOOD CELL (test code=WBC) 11.3 K/mm3 4.5-12.5 RED BLOOD CELL (test code=RBC) 2.80 mill/mm3 4.0-5.8 HEMOGLOBIN (test code=HGB) 7.9 gram/dL 13.0-17.5 HEMATOCRIT (test code=HCT) 24.1 % 42.0-52.0 MEAN CELL VOLUME (test code=MCV) 86.1 fL 80-98 MEAN CELL HGB (test code=MCH) 28.2 picogram 27.0-33.0 MEAN CELL HGB CONCETRATION (test code=MCHC) 32.8 gram/dL 33.0-36.0 RED CELL DISTRIBUTION WIDTH (test code=RDW) 13.0 % 11.6-16.2 RED CELL DISTRIBUTION WIDTH SD (test code=RDW-SD) 39.5 fL 37.0-51.0 PLATELET COUNT (test code=PLT) 269 K/mm3 150-450 MEAN PLATELET VOLUME (test code=MPV) 9.9 fL 6.7-11.0 NEUTROPHIL % (test code=NT%) 72.3 % 39.0-69.0 IMMATURE GRANULOCYTE % (test code=IG%) 0.9 % 0.0-5.0 LYMPHOCYTE % (test code=LY%) 16.9 % 25.0-55.0 MONOCYTE % (test code=MO%) 8.1 % 0.0-10.0 EOSINOPHIL % (test code=EO%) 1.6 % 0.0-5.0 BASOPHIL % (test code=BA%) 0.2 % 0.0-1.0 NUCLEATED RBC % (test code=NRBC%) 0.0 % 0-0 NEUTROPHIL # (test code=NT#) 8.16 K/mm3 1.8-7.7 IMMATURE GRANULOCYTE # (test code=IG#) 0.10 x10 3/uL 0-0.03 LYMPHOCYTE # (test code=LY#) 1.91 K/mm3 1.0-5.0 MONOCYTE # (test code=MO#) 0.92 K/mm3 0-0.8 EOSINOPHIL # (test code=EO#) 0.18 K/mm3 0.0-0.5 BASOPHIL # (test code=BA#) 0.02 K/mm3 0.0-0.2 NUCLEATED RBC # (test code=NRBC#) 0.00 K/mm3 0.0-0.1 MANUAL DIFF REQUIRED (test code=MDIFF) NO [id number] 11:40:00* Test Item Value Reference Range Comments GLUBED (test code=GLUBED) 191 mg/dL 74-106 Performed by certified band aid machine operator at [facility] HEPATITIS B CORE ANTIBODY,[id number] 06:11:00* Test Item Value Reference Range Comments HEPATITIS B CORE ANTIBODY,TOT (test code=HBCAB) Negative Negative Performed At: [facility] [address] [id number] Raygoza MD Ph:[phone] [id number] 05:12:00* Test Item Value Reference Range Comments GLUBED (test code=GLUBED) 147 mg/dL 74-106 Performed by certified band aid machine operator at [facility] AB HEPATITIS B [id number] 04:08:00* Test Item Value Reference Range Comments AB HEPATITIS B SURFACE (test code=HBSAB) Non Reactive () Non Reactive: Inconsistent with immunity, less than 10 mIU/mL Reactive: Consistent with immunity, greater than 9.9 mIU/mLPerformed At: [facility] [address] [id number] Raygoza MD Ph:[phone] [id number] 23:24:00* Test Item Value Reference Range Comments GLUBED (test code=GLUBED) 163 mg/dL 74-106 Performed by certified band aid machine operator at [facility] [id number] 18:25:00* Test Item Value Reference Range Comments GLUBED (test code=GLUBED) 166 mg/dL 74-106 Performed by certified band aid machine operator at [facility] CBC W/AUTO [id number] 10:18:00* Test Item Value Reference Range Comments WHITE BLOOD CELL (test code=WBC) 12.2 K/mm3 4.5-12.5 RED BLOOD CELL (test code=RBC) 2.80 mill/mm3 4.0-5.8 HEMOGLOBIN (test code=HGB) 7.8 gram/dL 13.0-17.5 HEMATOCRIT (test code=HCT) 24.4 % 42.0-52.0 MEAN CELL VOLUME (test code=MCV) 87.1 fL 80-98 MEAN CELL HGB (test code=MCH) 27.9 picogram 27.0-33.0 MEAN CELL HGB CONCETRATION (test code=MCHC) 32.0 gram/dL 33.0-36.0 RED CELL DISTRIBUTION WIDTH (test code=RDW) 13.2 % 11.6-16.2 RED CELL DISTRIBUTION WIDTH SD (test code=RDW-SD) 40.8 fL 37.0-51.0 PLATELET COUNT (test code=PLT) 254 K/mm3 150-450 RESULT VERIFIED BY REPEAT ANALYSIS MEAN PLATELET VOLUME (test code=MPV) 10.0 fL 6.7-11.0 NEUTROPHIL % (test code=NT%) 70.5 % 39.0-69.0 IMMATURE GRANULOCYTE % (test code=IG%) 1.3 % 0.0-5.0 LYMPHOCYTE % (test code=LY%) 15.7 % 25.0-55.0 MONOCYTE % (test code=MO%) 10.5 % 0.0-10.0 EOSINOPHIL % (test code=EO%) 1.8 % 0.0-5.0 BASOPHIL % (test code=BA%) 0.2 % 0.0-1.0 NUCLEATED RBC % (test code=NRBC%) 0.0 % 0-0 NEUTROPHIL # (test code=NT#) 8.59 K/mm3 1.8-7.7 IMMATURE GRANULOCYTE # (test code=IG#) 0.16 x10 3/uL 0-0.03 LYMPHOCYTE # (test code=LY#) 1.92 K/mm3 1.0-5.0 MONOCYTE # (test code=MO#) 1.28 K/mm3 0-0.8 EOSINOPHIL # (test code=EO#) 0.22 K/mm3 0.0-0.5 BASOPHIL # (test code=BA#) 0.03 K/mm3 0.0-0.2 NUCLEATED RBC # (test code=NRBC#) 0.00 K/mm3 0.0-0.1 COMPREHENSIVE METABOLIC [id number] 07:15:00* Test Item Value Reference Range Comments SODIUM (test code=NA) 138 mmol/L 136-145 POTASSIUM (test code=K) 4.3 mmol/L 3.5-5.1 CHLORIDE (test code=CL) 100.0 mmol/L 98-107 CARBON DIOXIDE (test code=CO2) 21.0 mmol/L 21-32 ANION GAP (test code=GAP) 21.3 10-20 GLUCOSE (test code=GLU) 149 mg/dL 74-106 BLOOD UREA NITROGEN (test code=BUN) 88 mg/dL 7-18 GLOMERULAR FILTRATION RATE (test code=GFR) 8 mL/min >=60 Estimated GFR by using Modified MDRD formula.Chronic kidney disease is defined as either kidney damageor GFR <60 mL/min/1.73 m2 for >3 months. CREATININE (test code=CREAT) 7.30 mg/dL 0.7-1.3 BUN/CREATININE RATIO (test code=BUN/CREA) 12.1 10-20 TOTAL PROTEIN (test code=PROT) 6.7 gram/dL 6.4-8.2 ALBUMIN (test code=ALB) 2.6 g/dL 3.4-5.0 GLOBULIN (test code=GLOB) 4.1 gram/dL 2.7-4.2 ALBUMIN/GLOBULIN RATIO (test code=A/G) 0.6 0.75-1.50 CALCIUM (test code=CA) 8.6 mg/dL 8.5-10.1 BILIRUBIN TOTAL (test code=BILT) 0.50 mg/dL 0.0-1.0 SGOT/AST (test code=AST) 16 IUnit/L 15-37 SGPT/ALT (test code=ALT) 21 IUnit/L 12-78 ALKALINE PHOSPHATASE TOTAL (test code=ALKP) 106 IUnit/L 45-117 Note change in reference range due to change in reagent. COMPREHENSIVE METABOLIC [id number] 07:08:00* Test Item Value Reference Range Comments SODIUM (test code=NA) 138 mmol/L 136-145 POTASSIUM (test code=K) 4.3 mmol/L 3.5-5.1 CHLORIDE (test code=CL) 100.0 mmol/L 98-107 CARBON DIOXIDE (test code=CO2) mmol/L 21-32 ANION GAP (test code=GAP) 10-20 GLUCOSE (test code=GLU) mg/dL 74-106 BLOOD UREA NITROGEN (test code=BUN) mg/dL 7-18 GLOMERULAR FILTRATION RATE (test code=GFR) mL/min >=60 CREATININE (test code=CREAT) mg/dL 0.7-1.3 BUN/CREATININE RATIO (test code=BUN/CREA) 10-20 TOTAL PROTEIN (test code=PROT) gram/dL 6.4-8.2 ALBUMIN (test code=ALB) g/dL 3.4-5.0 GLOBULIN (test code=GLOB) gram/dL 2.7-4.2 ALBUMIN/GLOBULIN RATIO (test code=A/G) 0.75-1.50 CALCIUM (test code=CA) mg/dL 8.5-10.1 BILIRUBIN TOTAL (test code=BILT) mg/dL 0.0-1.0 SGOT/AST (test code=AST) IUnit/L 15-37 SGPT/ALT (test code=ALT) IUnit/L 12-78 ALKALINE PHOSPHATASE TOTAL (test code=ALKP) IUnit/L 45-117 [id number] 06:01:00* Test Item Value Reference Range Comments GLUBED (test code=GLUBED) 151 mg/dL 74-106 Performed by certified band aid machine operator at [facility] [id number] 23:21:00* Test Item Value Reference Range Comments GLUBED (test code=GLUBED) 162 mg/dL 74-106 Performed by certified band aid machine operator at [facility] [id number] 16:52:00* Test Item Value Reference Range Comments GLUBED (test code=GLUBED) 170 mg/dL 74-106 Performed by certified band aid machine operator at [facility] [id number] 16:52:00* Test Item Value Reference Range Comments GLUBED (test code=GLUBED) 242 mg/dL 74-106 Performed by certified band aid machine operator at [facility] - CT C-SPINE W/O [id number] 15:11:00 Name: PHILIP HALEY [facility] : 1980 Age/S: 38 / M [address] [facility] Unit #: [id number] Loc: [place] [address] Phys: Kathleen Barlow MD Acct: [id number] Dis Date: Status: ADM IN PHONE #: [phone] Exam Date: 02/18/2019 1505 FAX #: [phone] Reason: neck pain EXAMS: CPT CODE: [id number] CT C-SPINE W/O CONTRAST 78199 TECHNIQUE: - CT C-SPINE W/O CONTRAST . This exam was performed using one or more of the following dose reduction techniques: Automated exposure control, adjustment of the mA and/ or kV according to patient size or use of iterative reconstruction technique. COMPARISON: None provided. HISTORY: 38 years Male neck pain FINDINGS: Bones: No acute fractures. No suspicious focal lesion. Alignment: No subluxation. Soft tissues: No abnormalities. Prevertebral soft tissues, perivertebral soft tissues are normal. Intervertebral discs: No spondylosis of the cervical spine. Other: Mucosal thickening paranasal sinuses. Emphysema upper lobes. Opacified ethmoid air cells bilaterally. IMPRESSION: No acute fractures. at 1511 Reported and sign ed by: Tomasz Kelley M.D. CC: Renzo Hutson MD; Kathelen Barlow MD Technologist:Mak Luna RT(R)(CT) CTDI: DLP: Trn scb Date/Time: 02/18/2019 (1510) [email or web address] Orig Print D/T : S: 02/18/2019 (2172) PAGE 1 Signed Report CBC W/AUTO [id number] 08:11:00* Test Item Value Reference Range Comments WHITE BLOOD CELL (test code=WBC) 10.2 K/mm3 4.5-12.5 RED BLOOD CELL (test code=RBC) 3.02 mill/mm3 4.0-5.8 HEMOGLOBIN (test code=HGB) 8.4 gram/dL 13.0-17.5 HEMATOCRIT (test code=HCT) 26.7 % 42.0-52.0 MEAN CELL VOLUME (test code=MCV) 88.4 fL 80-98 MEAN CELL HGB (test code=MCH) 27.8 picogram 27.0-33.0 MEAN CELL HGB CONCETRATION (test code=MCHC) 31.5 gram/dL 33.0-36.0 RED CELL DISTRIBUTION WIDTH (test code=RDW) 13.2 % 11.6-16.2 RED CELL DISTRIBUTION WIDTH SD (test code=RDW-SD) 42.7 fL 37.0-51.0 PLATELET COUNT (test code=PLT) 189 K/mm3 150-450 MEAN PLATELET VOLUME (test code=MPV) 10.7 fL 6.7-11.0 NEUTROPHIL % (test code=NT%) 67.9 % 39.0-69.0 IMMATURE GRANULOCYTE % (test code=IG%) 1.4 % 0.0-5.0 LYMPHOCYTE % (test code=LY%) 18.3 % 25.0-55.0 MONOCYTE % (test code=MO%) 11.3 % 0.0-10.0 EOSINOPHIL % (test code=EO%) 0.9 % 0.0-5.0 BASOPHIL % (test code=BA%) 0.2 % 0.0-1.0 NUCLEATED RBC % (test code=NRBC%) 0.0 % 0-0 NEUTROPHIL # (test code=NT#) 6.92 K/mm3 1.8-7.7 IMMATURE GRANULOCYTE # (test code=IG#) 0.14 x10 3/uL 0-0.03 LYMPHOCYTE # (test code=LY#) 1.86 K/mm3 1.0-5.0 MONOCYTE # (test code=MO#) 1.15 K/mm3 0-0.8 EOSINOPHIL # (test code=EO#) 0.09 K/mm3 0.0-0.5 BASOPHIL # (test code=BA#) 0.02 K/mm3 0.0-0.2 NUCLEATED RBC # (test code=NRBC#) 0.00 K/mm3 0.0-0.1 MANUAL DIFF REQUIRED (test code=MDIFF) NO, ONLY SCAN NEEDED DIFFERENTIAL [id number] 08:11:00* Test Item Value Reference Range Comments STAIN ACCEPTABILITY (test code=STN ACCEPTABLE) STAIN ACCEPTABLE POIKILOCYTOSIS (test code=POIK) 1+ ANISOCYTOSIS (test code=ANISO) 1+ PLATELET ESTIMATE (test code=PLTEST) ADEQUATE PLATELET MORPHOLOGY (test code=PLTMORPH) SIZE VARIABLE [id number] 07:57:00* Test Item Value Reference Range Comments GLUBED (test code=GLUBED) 165 mg/dL 74-106 Performed by certified band aid machine operator at [facility] [id number] 07:57:00* Test Item Value Reference Range Comments GLUBED (test code=GLUBED) 182 mg/dL 74-106 Performed by certified band aid machine operator at [facility] COMPREHENSIVE METABOLIC [id number] 05:26:00* Test Item Value Reference Range Comments SODIUM (test code=NA) 139 mmol/L 136-145 POTASSIUM (test code=K) 4.2 mmol/L 3.5-5.1 CHLORIDE (test code=CL) 101.0 mmol/L 98-107 CARBON DIOXIDE (test code=CO2) 26.0 mmol/L 21-32 ANION GAP (test code=GAP) 16.2 10-20 GLUCOSE (test code=GLU) 161 mg/dL 74-106 BLOOD UREA NITROGEN (test code=BUN) 65 mg/dL 7-18 RESULT VERIFIED BY REPEAT ANALYSIS GLOMERULAR FILTRATION RATE (test code=GFR) 11 mL/min >=60 Estimated GFR by using Modified MDRD formula.Chronic kidney disease is defined as either kidney damageor GFR <60 mL/min/1.73 m2 for >3 months. CREATININE (test code=CREAT) 5.90 mg/dL 0.7-1.3 BUN/CREATININE RATIO (test code=BUN/CREA) 11.0 10-20 TOTAL PROTEIN (test code=PROT) 6.6 gram/dL 6.4-8.2 ALBUMIN (test code=ALB) 2.5 g/dL 3.4-5.0 GLOBULIN (test code=GLOB) 4.1 gram/dL 2.7-4.2 ALBUMIN/GLOBULIN RATIO (test code=A/G) 0.6 0.75-1.50 CALCIUM (test code=CA) 8.7 mg/dL 8.5-10.1 BILIRUBIN TOTAL (test code=BILT) 0.50 mg/dL 0.0-1.0 SGOT/AST (test code=AST) 16 IUnit/L 15-37 SGPT/ALT (test code=ALT) 24 IUnit/L 12-78 ALKALINE PHOSPHATASE TOTAL (test code=ALKP) 105 IUnit/L 45-117 Note change in reference range due to change in reagent. [id number] 05:26:00* Test Item Value Reference Range Comments PHOSPHORUS (test code=PHOS) 5.3 mg/dL 2.5-4.9 [id number] 05:26:00* Test Item Value Reference Range Comments MAGNESIUM (test code=MAG) 2.1 mg/dL 1.8-2.4 COMPREHENSIVE METABOLIC [id number] 04:57:00* Test Item Value Reference Range Comments SODIUM (test code=NA) 139 mmol/L 136-145 POTASSIUM (test code=K) 4.2 mmol/L 3.5-5.1 CHLORIDE (test code=CL) 101.0 mmol/L 98-107 CARBON DIOXIDE (test code=CO2) mmol/L 21-32 ANION GAP (test code=GAP) 10-20 GLUCOSE (test code=GLU) mg/dL 74-106 BLOOD UREA NITROGEN (test code=BUN) mg/dL 7-18 GLOMERULAR FILTRATION RATE (test code=GFR) mL/min >=60 CREATININE (test code=CREAT) mg/dL 0.7-1.3 BUN/CREATININE RATIO (test code=BUN/CREA) 10-20 TOTAL PROTEIN (test code=PROT) gram/dL 6.4-8.2 ALBUMIN (test code=ALB) g/dL 3.4-5.0 GLOBULIN (test code=GLOB) gram/dL 2.7-4.2 ALBUMIN/GLOBULIN RATIO (test code=A/G) 0.75-1.50 CALCIUM (test code=CA) mg/dL 8.5-10.1 BILIRUBIN TOTAL (test code=BILT) mg/dL 0.0-1.0 SGOT/AST (test code=AST) IUnit/L 15-37 SGPT/ALT (test code=ALT) IUnit/L 12-78 ALKALINE PHOSPHATASE TOTAL (test code=ALKP) IUnit/L 45-117 [id number] 04:57:00* Test Item Value Reference Range Comments PHOSPHORUS (test code=PHOS) mg/dL 2.5-4.9 [id number] 04:57:00* Test Item Value Reference Range Comments MAGNESIUM (test code=MAG) mg/dL 1.8-2.4 CBC W/AUTO [id number] 04:49:00* Test Item Value Reference Range Comments WHITE BLOOD CELL (test code=WBC) 10.2 K/mm3 4.5-12.5 RED BLOOD CELL (test code=RBC) 3.02 mill/mm3 4.0-5.8 HEMOGLOBIN (test code=HGB) 8.4 gram/dL 13.0-17.5 HEMATOCRIT (test code=HCT) 26.7 % 42.0-52.0 MEAN CELL VOLUME (test code=MCV) 88.4 fL 80-98 MEAN CELL HGB (test code=MCH) 27.8 picogram 27.0-33.0 MEAN CELL HGB CONCETRATION (test code=MCHC) 31.5 gram/dL 33.0-36.0 RED CELL DISTRIBUTION WIDTH (test code=RDW) 13.2 % 11.6-16.2 RED CELL DISTRIBUTION WIDTH SD (test code=RDW-SD) 42.7 fL 37.0-51.0 PLATELET COUNT (test code=PLT) 189 K/mm3 150-450 MEAN PLATELET VOLUME (test code=MPV) 10.7 fL 6.7-11.0 NEUTROPHIL % (test code=NT%) 67.9 % 39.0-69.0 IMMATURE GRANULOCYTE % (test code=IG%) 1.4 % 0.0-5.0 LYMPHOCYTE % (test code=LY%) 18.3 % 25.0-55.0 MONOCYTE % (test code=MO%) 11.3 % 0.0-10.0 EOSINOPHIL % (test code=EO%) 0.9 % 0.0-5.0 BASOPHIL % (test code=BA%) 0.2 % 0.0-1.0 NUCLEATED RBC % (test code=NRBC%) 0.0 % 0-0 NEUTROPHIL # (test code=NT#) 6.92 K/mm3 1.8-7.7 IMMATURE GRANULOCYTE # (test code=IG#) 0.14 x10 3/uL 0-0.03 LYMPHOCYTE # (test code=LY#) 1.86 K/mm3 1.0-5.0 MONOCYTE # (test code=MO#) 1.15 K/mm3 0-0.8 EOSINOPHIL # (test code=EO#) 0.09 K/mm3 0.0-0.5 BASOPHIL # (test code=BA#) 0.02 K/mm3 0.0-0.2 NUCLEATED RBC # (test code=NRBC#) 0.00 K/mm3 0.0-0.1 MANUAL DIFF REQUIRED (test code=MDIFF) NO, ONLY SCAN NEEDED DIFFERENTIAL [id number] 04:49:00* Test Item Value Reference Range Comments STAIN ACCEPTABILITY (test code=STN ACCEPTABLE) CABOT RINGS (test code=CAB) MORPHOLOGY COMMENT (test code=MOC) PLATELET ESTIMATE (test code=PLTEST) PLATELET MORPHOLOGY (test code=PLTMORPH) CBC W/AUTO [id number] 04:49:00* Test Item Value Reference Range Comments WHITE BLOOD CELL (test code=WBC) 10.2 K/mm3 4.5-12.5 RED BLOOD CELL (test code=RBC) 3.02 mill/mm3 4.0-5.8 HEMOGLOBIN (test code=HGB) 8.4 gram/dL 13.0-17.5 HEMATOCRIT (test code=HCT) 26.7 % 42.0-52.0 MEAN CELL VOLUME (test code=MCV) 88.4 fL 80-98 MEAN CELL HGB (test code=MCH) 27.8 picogram 27.0-33.0 MEAN CELL HGB CONCETRATION (test code=MCHC) 31.5 gram/dL 33.0-36.0 RED CELL DISTRIBUTION WIDTH (test code=RDW) 13.2 % 11.6-16.2 RED CELL DISTRIBUTION WIDTH SD (test code=RDW-SD) 42.7 fL 37.0-51.0 PLATELET COUNT (test code=PLT) 189 K/mm3 150-450 MEAN PLATELET VOLUME (test code=MPV) 10.7 fL 6.7-11.0 NEUTROPHIL % (test code=NT%) 67.9 % 39.0-69.0 IMMATURE GRANULOCYTE % (test code=IG%) 1.4 % 0.0-5.0 LYMPHOCYTE % (test code=LY%) 18.3 % 25.0-55.0 MONOCYTE % (test code=MO%) 11.3 % 0.0-10.0 EOSINOPHIL % (test code=EO%) 0.9 % 0.0-5.0 BASOPHIL % (test code=BA%) 0.2 % 0.0-1.0 NUCLEATED RBC % (test code=NRBC%) 0.0 % 0-0 NEUTROPHIL # (test code=NT#) 6.92 K/mm3 1.8-7.7 IMMATURE GRANULOCYTE # (test code=IG#) 0.14 x10 3/uL 0-0.03 LYMPHOCYTE # (test code=LY#) 1.86 K/mm3 1.0-5.0 MONOCYTE # (test code=MO#) 1.15 K/mm3 0-0.8 EOSINOPHIL # (test code=EO#) 0.09 K/mm3 0.0-0.5 BASOPHIL # (test code=BA#) 0.02 K/mm3 0.0-0.2 NUCLEATED RBC # (test code=NRBC#) 0.00 K/mm3 0.0-0.1 MANUAL DIFF REQUIRED (test code=MDIFF) NO, ONLY SCAN NEEDED DIFFERENTIAL [id number] 04:49:00* Test Item Value Reference Range Comments STAIN ACCEPTABILITY (test code=STN ACCEPTABLE) MORPHOLOGY COMMENT (test code=MOC) PLATELET ESTIMATE (test code=PLTEST) PLATELET MORPHOLOGY (test code=PLTMORPH) CBC W/AUTO [id number] 04:49:00* Test Item Value Reference Range Comments WHITE BLOOD CELL (test code=WBC) 10.2 K/mm3 4.5-12.5 RED BLOOD CELL (test code=RBC) 3.02 mill/mm3 4.0-5.8 HEMOGLOBIN (test code=HGB) 8.4 gram/dL 13.0-17.5 HEMATOCRIT (test code=HCT) 26.7 % 42.0-52.0 MEAN CELL VOLUME (test code=MCV) 88.4 fL 80-98 MEAN CELL HGB (test code=MCH) 27.8 picogram 27.0-33.0 MEAN CELL HGB CONCETRATION (test code=MCHC) 31.5 gram/dL 33.0-36.0 RED CELL DISTRIBUTION WIDTH (test code=RDW) 13.2 % 11.6-16.2 RED CELL DISTRIBUTION WIDTH SD (test code=RDW-SD) 42.7 fL 37.0-51.0 PLATELET COUNT (test code=PLT) 189 K/mm3 150-450 MEAN PLATELET VOLUME (test code=MPV) 10.7 fL 6.7-11.0 NEUTROPHIL % (test code=NT%) 67.9 % 39.0-69.0 IMMATURE GRANULOCYTE % (test code=IG%) 1.4 % 0.0-5.0 LYMPHOCYTE % (test code=LY%) 18.3 % 25.0-55.0 MONOCYTE % (test code=MO%) 11.3 % 0.0-10.0 EOSINOPHIL % (test code=EO%) 0.9 % 0.0-5.0 BASOPHIL % (test code=BA%) 0.2 % 0.0-1.0 NUCLEATED RBC % (test code=NRBC%) 0.0 % 0-0 NEUTROPHIL # (test code=NT#) 6.92 K/mm3 1.8-7.7 IMMATURE GRANULOCYTE # (test code=IG#) 0.14 x10 3/uL 0-0.03 LYMPHOCYTE # (test code=LY#) 1.86 K/mm3 1.0-5.0 MONOCYTE # (test code=MO#) 1.15 K/mm3 0-0.8 EOSINOPHIL # (test code=EO#) 0.09 K/mm3 0.0-0.5 BASOPHIL # (test code=BA#) 0.02 K/mm3 0.0-0.2 NUCLEATED RBC # (test code=NRBC#) 0.00 K/mm3 0.0-0.1 MANUAL DIFF REQUIRED (test code=MDIFF) NO, ONLY SCAN NEEDED DIFFERENTIAL [id number] 04:49:00* Test Item Value Reference Range Comments STAIN ACCEPTABILITY (test code=STN ACCEPTABLE) MORPHOLOGY COMMENT (test code=MOC) PLATELET ESTIMATE (test code=PLTEST) PLATELET MORPHOLOGY (test code=PLTMORPH) CBC W/AUTO [id number] 04:49:00* Test Item Value Reference Range Comments WHITE BLOOD CELL (test code=WBC) 10.2 K/mm3 4.5-12.5 RED BLOOD CELL (test code=RBC) 3.02 mill/mm3 4.0-5.8 HEMOGLOBIN (test code=HGB) 8.4 gram/dL 13.0-17.5 HEMATOCRIT (test code=HCT) 26.7 % 42.0-52.0 MEAN CELL VOLUME (test code=MCV) 88.4 fL 80-98 MEAN CELL HGB (test code=MCH) 27.8 picogram 27.0-33.0 MEAN CELL HGB CONCETRATION (test code=MCHC) 31.5 gram/dL 33.0-36.0 RED CELL DISTRIBUTION WIDTH (test code=RDW) 13.2 % 11.6-16.2 RED CELL DISTRIBUTION WIDTH SD (test code=RDW-SD) 42.7 fL 37.0-51.0 PLATELET COUNT (test code=PLT) 189 K/mm3 150-450 MEAN PLATELET VOLUME (test code=MPV) 10.7 fL 6.7-11.0 NEUTROPHIL % (test code=NT%) 67.9 % 39.0-69.0 IMMATURE GRANULOCYTE % (test code=IG%) 1.4 % 0.0-5.0 LYMPHOCYTE % (test code=LY%) 18.3 % 25.0-55.0 MONOCYTE % (test code=MO%) 11.3 % 0.0-10.0 EOSINOPHIL % (test code=EO%) 0.9 % 0.0-5.0 BASOPHIL % (test code=BA%) 0.2 % 0.0-1.0 NUCLEATED RBC % (test code=NRBC%) 0.0 % 0-0 NEUTROPHIL # (test code=NT#) 6.92 K/mm3 1.8-7.7 IMMATURE GRANULOCYTE # (test code=IG#) 0.14 x10 3/uL 0-0.03 LYMPHOCYTE # (test code=LY#) 1.86 K/mm3 1.0-5.0 MONOCYTE # (test code=MO#) 1.15 K/mm3 0-0.8 EOSINOPHIL # (test code=EO#) 0.09 K/mm3 0.0-0.5 BASOPHIL # (test code=BA#) 0.02 K/mm3 0.0-0.2 NUCLEATED RBC # (test code=NRBC#) 0.00 K/mm3 0.0-0.1 MANUAL DIFF REQUIRED (test code=MDIFF) NO, ONLY SCAN NEEDED DIFFERENTIAL [id number] 04:49:00* Test Item Value Reference Range Comments STAIN ACCEPTABILITY (test code=STN ACCEPTABLE) CABOT RINGS (test code=CAB) MORPHOLOGY COMMENT (test code=MOC) PLATELET ESTIMATE (test code=PLTEST) PLATELET MORPHOLOGY (test code=PLTMORPH) [id number] 17:00:00* Test Item Value Reference Range Comments GLUBED (test code=GLUBED) 179 mg/dL 74-106 Performed by certified band aid machine operator at [facility] [id number] 10:48:00* Test Item Value Reference Range Comments GLUBED (test code=GLUBED) 230 mg/dL 74-106 Performed by certified band aid machine operator at [facility] BASIC METABOLIC [id number] 07:51:00* Test Item Value Reference Range Comments SODIUM (test code=NA) 139 mmol/L 136-145 POTASSIUM (test code=K) 3.9 mmol/L 3.5-5.1 CHLORIDE (test code=CL) 101.0 mmol/L 98-107 CARBON DIOXIDE (test code=CO2) 23.0 mmol/L 21-32 ANION GAP (test code=GAP) 18.9 10-20 GLUCOSE (test code=GLU) 182 mg/dL 74-106 BLOOD UREA NITROGEN (test code=BUN) 93 mg/dL 7-18 GLOMERULAR FILTRATION RATE (test code=GFR) 8 mL/min >=60 Estimated GFR by using Modified MDRD formula.Chronic kidney disease is defined as either kidney damageor GFR <60 mL/min/1.73 m2 for >3 months. CREATININE (test code=CREAT) 7.60 mg/dL 0.7-1.3 BUN/CREATININE RATIO (test code=BUN/CREA) 12.2 10-20 CALCIUM (test code=CA) 9.0 mg/dL 8.5-10.1 [id number] 07:51:00* Test Item Value Reference Range Comments PHOSPHORUS (test code=PHOS) 5.0 mg/dL 2.5-4.9 [id number] 07:51:00* Test Item Value Reference Range Comments MAGNESIUM (test code=MAG) 2.4 mg/dL 1.8-2.4 CALCIUM [id number] 07:51:00* Test Item Value Reference Range Comments CALCIUM IONIZED (test code=KANIKA) 1.24 mmol/L 1.12-1.32 BASIC METABOLIC [id number] 07:46:00* Test Item Value Reference Range Comments SODIUM (test code=NA) 139 mmol/L 136-145 POTASSIUM (test code=K) 3.9 mmol/L 3.5-5.1 CHLORIDE (test code=CL) 101.0 mmol/L 98-107 CARBON DIOXIDE (test code=CO2) mmol/L 21-32 ANION GAP (test code=GAP) 10-20 GLUCOSE (test code=GLU) mg/dL 74-106 BLOOD UREA NITROGEN (test code=BUN) mg/dL 7-18 GLOMERULAR FILTRATION RATE (test code=GFR) mL/min >=60 CREATININE (test code=CREAT) mg/dL 0.7-1.3 BUN/CREATININE RATIO (test code=BUN/CREA) 10-20 CALCIUM (test code=CA) mg/dL 8.5-10.1 [id number] 07:46:00* Test Item Value Reference Range Comments PHOSPHORUS (test code=PHOS) mg/dL 2.5-4.9 [id number] 07:46:00* Test Item Value Reference Range Comments MAGNESIUM (test code=MAG) mg/dL 1.8-2.4 CALCIUM [id number] 07:46:00* Test Item Value Reference Range Comments CALCIUM IONIZED (test code=KANIKA) 1.24 mmol/L 1.12-1.32 BASIC METABOLIC [id number] 07:40:00* Test Item Value Reference Range Comments SODIUM (test code=NA) mmol/L 136-145 POTASSIUM (test code=K) mmol/L 3.5-5.1 CHLORIDE (test code=CL) mmol/L 98-107 CARBON DIOXIDE (test code=CO2) mmol/L 21-32 ANION GAP (test code=GAP) 10-20 GLUCOSE (test code=GLU) mg/dL 74-106 BLOOD UREA NITROGEN (test code=BUN) mg/dL 7-18 GLOMERULAR FILTRATION RATE (test code=GFR) mL/min >=60 CREATININE (test code=CREAT) mg/dL 0.7-1.3 BUN/CREATININE RATIO (test code=BUN/CREA) 10-20 CALCIUM (test code=CA) mg/dL 8.5-10.1 [id number] 07:40:00* Test Item Value Reference Range Comments PHOSPHORUS (test code=PHOS) mg/dL 2.5-4.9 [id number] 07:40:00* Test Item Value Reference Range Comments MAGNESIUM (test code=MAG) mg/dL 1.8-2.4 CALCIUM [id number] 07:40:00* Test Item Value Reference Range Comments CALCIUM IONIZED (test code=KANIKA) 1.24 mmol/L 1.12-1.32 CBC W/AUTO [id number] 07:16:00* Test Item Value Reference Range Comments WHITE BLOOD CELL (test code=WBC) 11.9 K/mm3 4.5-12.5 RED BLOOD CELL (test code=RBC) 3.02 mill/mm3 4.0-5.8 HEMOGLOBIN (test code=HGB) 8.4 gram/dL 13.0-17.5 HEMATOCRIT (test code=HCT) 25.8 % 42.0-52.0 MEAN CELL VOLUME (test code=MCV) 85.4 fL 80-98 MEAN CELL HGB (test code=MCH) 27.8 picogram 27.0-33.0 MEAN CELL HGB CONCETRATION (test code=MCHC) 32.6 gram/dL 33.0-36.0 RED CELL DISTRIBUTION WIDTH (test code=RDW) 13.2 % 11.6-16.2 RED CELL DISTRIBUTION WIDTH SD (test code=RDW-SD) 40.9 fL 37.0-51.0 PLATELET COUNT (test code=PLT) 234 K/mm3 150-450 MEAN PLATELET VOLUME (test code=MPV) 10.6 fL 6.7-11.0 NEUTROPHIL % (test code=NT%) 75.1 % 39.0-69.0 IMMATURE GRANULOCYTE % (test code=IG%) 0.8 % 0.0-5.0 LYMPHOCYTE % (test code=LY%) 12.2 % 25.0-55.0 MONOCYTE % (test code=MO%) 11.1 % 0.0-10.0 EOSINOPHIL % (test code=EO%) 0.6 % 0.0-5.0 BASOPHIL % (test code=BA%) 0.2 % 0.0-1.0 NUCLEATED RBC % (test code=NRBC%) 0.0 % 0-0 NEUTROPHIL # (test code=NT#) 8.91 K/mm3 1.8-7.7 IMMATURE GRANULOCYTE # (test code=IG#) 0.10 x10 3/uL 0-0.03 LYMPHOCYTE # (test code=LY#) 1.45 K/mm3 1.0-5.0 MONOCYTE # (test code=MO#) 1.32 K/mm3 0-0.8 EOSINOPHIL # (test code=EO#) 0.07 K/mm3 0.0-0.5 BASOPHIL # (test code=BA#) 0.02 K/mm3 0.0-0.2 NUCLEATED RBC # (test code=NRBC#) 0.00 K/mm3 0.0-0.1 MANUAL DIFF REQUIRED (test code=MDIFF) NO [id number] 05:34:00* Test Item Value Reference Range Comments GLUBED (test code=GLUBED) 196 mg/dL 74-106 Performed by certified band aid machine operator at [facility] [id number] 23:18:00* Test Item Value Reference Range Comments GLUBED (test code=GLUBED) 222 mg/dL 74-106 Performed by certified band aid machine operator at [facility] [id number] 17:51:00* Test Item Value Reference Range Comments GLUBED (test code=GLUBED) 197 mg/dL 74-106 Performed by certified band aid machine operator at [facility] [id number] 16:14:00* Test Item Value Reference Range Comments GLUBED (test code=GLUBED) 197 mg/dL 74-106 Performed by certified band aid machine operator at [facility] [id number] 11:02:00* Test Item Value Reference Range Comments GLUBED (test code=GLUBED) 247 mg/dL 74-106 Performed by certified band aid machine operator at [facility] [id number] 08:45:00* Test Item Value Reference Range Comments GLUBED (test code=GLUBED) 247 mg/dL 74-106 Performed by certified band aid machine operator at [facility] BASIC METABOLIC [id number] 06:12:00* Test Item Value Reference Range Comments SODIUM (test code=NA) 137 mmol/L 136-145 POTASSIUM (test code=K) 4.2 mmol/L 3.5-5.1 CHLORIDE (test code=CL) 101.0 mmol/L 98-107 CARBON DIOXIDE (test code=CO2) 26.0 mmol/L 21-32 ANION GAP (test code=GAP) 14.2 10-20 GLUCOSE (test code=GLU) 262 mg/dL 74-106 BLOOD UREA NITROGEN (test code=BUN) 57 mg/dL 7-18 RESULT VERIFIED BY REPEAT ANALYSIS GLOMERULAR FILTRATION RATE (test code=GFR) 12 mL/min >=60 Estimated GFR by using Modified MDRD formula.Chronic kidney disease is defined as either kidney damageor GFR <60 mL/min/1.73 m2 for >3 months. CREATININE (test code=CREAT) 5.20 mg/dL 0.7-1.3 BUN/CREATININE RATIO (test code=BUN/CREA) 11.0 10-20 CALCIUM (test code=CA) 8.8 mg/dL 8.5-10.1 [id number] 06:12:00* Test Item Value Reference Range Comments PHOSPHORUS (test code=PHOS) 5.1 mg/dL 2.5-4.9 [id number] 06:12:00* Test Item Value Reference Range Comments MAGNESIUM (test code=MAG) 2.3 mg/dL 1.8-2.4 CALCIUM [id number] 06:12:00* Test Item Value Reference Range Comments CALCIUM IONIZED (test code=KANIKA) 1.22 mmol/L 1.12-1.32 BASIC METABOLIC [id number] 06:01:00* Test Item Value Reference Range Comments SODIUM (test code=NA) 137 mmol/L 136-145 POTASSIUM (test code=K) 4.2 mmol/L 3.5-5.1 CHLORIDE (test code=CL) 101.0 mmol/L 98-107 CARBON DIOXIDE (test code=CO2) 26.0 mmol/L 21-32 ANION GAP (test code=GAP) 14.2 10-20 GLUCOSE (test code=GLU) 262 mg/dL 74-106 BLOOD UREA NITROGEN (test code=BUN) 57 mg/dL 7-18 RESULT VERIFIED BY REPEAT ANALYSIS GLOMERULAR FILTRATION RATE (test code=GFR) 12 mL/min >=60 Estimated GFR by using Modified MDRD formula.Chronic kidney disease is defined as either kidney damageor GFR <60 mL/min/1.73 m2 for >3 months. CREATININE (test code=CREAT) 5.20 mg/dL 0.7-1.3 BUN/CREATININE RATIO (test code=BUN/CREA) 11.0 10-20 CALCIUM (test code=CA) 8.8 mg/dL 8.5-10.1 [id number] 06:01:00* Test Item Value Reference Range Comments PHOSPHORUS (test code=PHOS) 5.1 mg/dL 2.5-4.9 [id number] 06:01:00* Test Item Value Reference Range Comments MAGNESIUM (test code=MAG) 2.3 mg/dL 1.8-2.4 CALCIUM [id number] 06:01:00* Test Item Value Reference Range Comments CALCIUM IONIZED (test code=KANIKA) mmol/L 1.12-1.32 BASIC METABOLIC [id number] 05:45:00* Test Item Value Reference Range Comments SODIUM (test code=NA) 137 mmol/L 136-145 POTASSIUM (test code=K) 4.2 mmol/L 3.5-5.1 CHLORIDE (test code=CL) 101.0 mmol/L 98-107 CARBON DIOXIDE (test code=CO2) mmol/L 21-32 ANION GAP (test code=GAP) 10-20 GLUCOSE (test code=GLU) mg/dL 74-106 BLOOD UREA NITROGEN (test code=BUN) mg/dL 7-18 GLOMERULAR FILTRATION RATE (test code=GFR) mL/min >=60 CREATININE (test code=CREAT) mg/dL 0.7-1.3 BUN/CREATININE RATIO (test code=BUN/CREA) 10-20 CALCIUM (test code=CA) mg/dL 8.5-10.1 [id number] 05:45:00* Test Item Value Reference Range Comments PHOSPHORUS (test code=PHOS) mg/dL 2.5-4.9 [id number] 05:45:00* Test Item Value Reference Range Comments MAGNESIUM (test code=MAG) mg/dL 1.8-2.4 CALCIUM [id number] 05:45:00* Test Item Value Reference Range Comments CALCIUM IONIZED (test code=KANIKA) mmol/L 1.12-1.32 CBC W/AUTO [id number] 05:45:00* Test Item Value Reference Range Comments WHITE BLOOD CELL (test code=WBC) 10.2 K/mm3 4.5-12.5 RED BLOOD CELL (test code=RBC) 3.39 mill/mm3 4.0-5.8 HEMOGLOBIN (test code=HGB) 9.4 gram/dL 13.0-17.5 HEMATOCRIT (test code=HCT) 29.8 % 42.0-52.0 MEAN CELL VOLUME (test code=MCV) 87.9 fL 80-98 MEAN CELL HGB (test code=MCH) 27.7 picogram 27.0-33.0 MEAN CELL HGB CONCETRATION (test code=MCHC) 31.5 gram/dL 33.0-36.0 RED CELL DISTRIBUTION WIDTH (test code=RDW) 13.2 % 11.6-16.2 RED CELL DISTRIBUTION WIDTH SD (test code=RDW-SD) 42.1 fL 37.0-51.0 PLATELET COUNT (test code=PLT) 246 K/mm3 150-450 MEAN PLATELET VOLUME (test code=MPV) 10.1 fL 6.7-11.0 NEUTROPHIL % (test code=NT%) 72.3 % 39.0-69.0 IMMATURE GRANULOCYTE % (test code=IG%) 1.0 % 0.0-5.0 LYMPHOCYTE % (test code=LY%) 13.7 % 25.0-55.0 MONOCYTE % (test code=MO%) 11.9 % 0.0-10.0 EOSINOPHIL % (test code=EO%) 0.8 % 0.0-5.0 BASOPHIL % (test code=BA%) 0.3 % 0.0-1.0 NUCLEATED RBC % (test code=NRBC%) 0.0 % 0-0 NEUTROPHIL # (test code=NT#) 7.37 K/mm3 1.8-7.7 IMMATURE GRANULOCYTE # (test code=IG#) 0.10 x10 3/uL 0-0.03 LYMPHOCYTE # (test code=LY#) 1.40 K/mm3 1.0-5.0 MONOCYTE # (test code=MO#) 1.21 K/mm3 0-0.8 EOSINOPHIL # (test code=EO#) 0.08 K/mm3 0.0-0.5 BASOPHIL # (test code=BA#) 0.03 K/mm3 0.0-0.2 NUCLEATED RBC # (test code=NRBC#) 0.00 K/mm3 0.0-0.1 MANUAL DIFF REQUIRED (test code=MDIFF) NO [id number] 05:21:00* Test Item Value Reference Range Comments GLUBED (test code=GLUBED) 238 mg/dL 74-106 Performed by certified band aid machine operator at [facility] [id number] 00:01:00* Test Item Value Reference Range Comments GLUBED (test code=GLUBED) 219 mg/dL 74-106 Performed by certified band aid machine operator at [facility] [id number] 18:01:00* Test Item Value Reference Range Comments GLUBED (test code=GLUBED) 226 mg/dL 74-106 Performed by certified band aid machine operator at [facility] [id number] 11:54:00* Test Item Value Reference Range Comments GLUBED (test code=GLUBED) 189 mg/dL 74-106 Performed by certified band aid machine operator at [facility] BASIC METABOLIC [id number] 07:36:00* Test Item Value Reference Range Comments SODIUM (test code=NA) 139 mmol/L 136-145 POTASSIUM (test code=K) 4.3 mmol/L 3.5-5.1 CHLORIDE (test code=CL) 104.0 mmol/L 98-107 CARBON DIOXIDE (test code=CO2) 25.0 mmol/L 21-32 ANION GAP (test code=GAP) 14.3 10-20 GLUCOSE (test code=GLU) 237 mg/dL 74-106 BLOOD UREA NITROGEN (test code=BUN) 47 mg/dL 7-18 GLOMERULAR FILTRATION RATE (test code=GFR) 12 mL/min >=60 Estimated GFR by using Modified MDRD formula.Chronic kidney disease is defined as either kidney damageor GFR <60 mL/min/1.73 m2 for >3 months. CREATININE (test code=CREAT) 5.40 mg/dL 0.7-1.3 BUN/CREATININE RATIO (test code=BUN/CREA) 8.7 10-20 CALCIUM (test code=CA) 8.5 mg/dL 8.5-10.1 [id number] 07:36:00* Test Item Value Reference Range Comments PHOSPHORUS (test code=PHOS) 5.5 mg/dL 2.5-4.9 [id number] 07:36:00* Test Item Value Reference Range Comments MAGNESIUM (test code=MAG) 2.2 mg/dL 1.8-2.4 BASIC METABOLIC [id number] 07:20:00* Test Item Value Reference Range Comments SODIUM (test code=NA) 139 mmol/L 136-145 POTASSIUM (test code=K) 4.3 mmol/L 3.5-5.1 CHLORIDE (test code=CL) 104.0 mmol/L 98-107 CARBON DIOXIDE (test code=CO2) mmol/L 21-32 ANION GAP (test code=GAP) 10-20 GLUCOSE (test code=GLU) mg/dL 74-106 BLOOD UREA NITROGEN (test code=BUN) mg/dL 7-18 GLOMERULAR FILTRATION RATE (test code=GFR) mL/min >=60 CREATININE (test code=CREAT) mg/dL 0.7-1.3 BUN/CREATININE RATIO (test code=BUN/CREA) 10-20 CALCIUM (test code=CA) mg/dL 8.5-10.1 [id number] 07:20:00* Test Item Value Reference Range Comments PHOSPHORUS (test code=PHOS) mg/dL 2.5-4.9 [id number] 07:20:00* Test Item Value Reference Range Comments MAGNESIUM (test code=MAG) mg/dL 1.8-2.4 CBC W/AUTO [id number] 07:05:00* Test Item Value Reference Range Comments WHITE BLOOD CELL (test code=WBC) 10.0 K/mm3 4.5-12.5 RED BLOOD CELL (test code=RBC) 3.31 mill/mm3 4.0-5.8 HEMOGLOBIN (test code=HGB) 9.2 gram/dL 13.0-17.5 HEMATOCRIT (test code=HCT) 28.4 % 42.0-52.0 MEAN CELL VOLUME (test code=MCV) 85.8 fL 80-98 MEAN CELL HGB (test code=MCH) 27.8 picogram 27.0-33.0 MEAN CELL HGB CONCETRATION (test code=MCHC) 32.4 gram/dL 33.0-36.0 RED CELL DISTRIBUTION WIDTH (test code=RDW) 13.2 % 11.6-16.2 RED CELL DISTRIBUTION WIDTH SD (test code=RDW-SD) 41.1 fL 37.0-51.0 PLATELET COUNT (test code=PLT) 232 K/mm3 150-450 MEAN PLATELET VOLUME (test code=MPV) 10.6 fL 6.7-11.0 NEUTROPHIL % (test code=NT%) 75.6 % 39.0-69.0 IMMATURE GRANULOCYTE % (test code=IG%) 1.1 % 0.0-5.0 LYMPHOCYTE % (test code=LY%) 13.0 % 25.0-55.0 MONOCYTE % (test code=MO%) 9.5 % 0.0-10.0 EOSINOPHIL % (test code=EO%) 0.6 % 0.0-5.0 BASOPHIL % (test code=BA%) 0.2 % 0.0-1.0 NUCLEATED RBC % (test code=NRBC%) 0.0 % 0-0 NEUTROPHIL # (test code=NT#) 7.58 K/mm3 1.8-7.7 IMMATURE GRANULOCYTE # (test code=IG#) 0.11 x10 3/uL 0-0.03 LYMPHOCYTE # (test code=LY#) 1.30 K/mm3 1.0-5.0 MONOCYTE # (test code=MO#) 0.95 K/mm3 0-0.8 EOSINOPHIL # (test code=EO#) 0.06 K/mm3 0.0-0.5 BASOPHIL # (test code=BA#) 0.02 K/mm3 0.0-0.2 NUCLEATED RBC # (test code=NRBC#) 0.00 K/mm3 0.0-0.1 MANUAL DIFF REQUIRED (test code=MDIFF) NO [id number] 06:30:00* Test Item Value Reference Range Comments GLUBED (test code=GLUBED) 226 mg/dL 74-106 Performed by certified band aid machine operator at [facility] [id number] 20:28:00* Test Item Value Reference Range Comments GLUBED (test code=GLUBED) 179 mg/dL 74-106 Performed by certified band aid machine operator at [facility] [id number] 16:20:00* Test Item Value Reference Range Comments GLUBED (test code=GLUBED) 196 mg/dL 74-106 Performed by certified band aid machine operator at [facility] [id number] 13:19:00* Test Item Value Reference Range Comments GLUBED (test code=GLUBED) 206 mg/dL 74-106 Performed by certified band aid machine operator at [facility] [id number] 10:48:00* Test Item Value Reference Range Comments GLUBED (test code=GLUBED) 224 mg/dL 74-106 Performed by certified band aid machine operator at [facility] - XR CHEST 1 [id number] 07:56:00 FAX: Gigi Hanley MD [phone] [employer]: [address]: ADM FAX: Liliana Gao MD [phone] Name: PHILIP HALEY [facility] : 1980 Age/S: 38/M [address] [facility] Unit #: [id number] [facility] [place] [address] Phys: Liliana Gao MD Acct: [id number] Dis Date: Status: ADM IN PHONE #: [phone] Exam Date: 02/14/2019715 FAX #: [phone] Reason: ngt, ETT EXAMS: CPT CODE: [id number] XR CHEST 1 V 11026 REASON FOR EXAM: ngt, ETT Exam Order Date: 02/14/2019 12:00 AM Ordering M.D.: Liliana Gao MD PROCEDURE: - XR CHEST 1 V COMPARISON: AP chest x-ray the previous morning at 10:28 AM FINDINGS: ET tube, right IJ central line, and enteric suction tube are appropriately positioned. Lung volumes are diminished and there are opacities in the mid to lower lungs bilaterally which are stable from the previous exam. These opacities may represent any combination of atelectasis and pneumonia. The cardiomediastinal silhouette is prominent but stable. Musculoskeletal findings are stable. IMPRESSION: Stable positioning of lines and tubes. Stable opacities in the mid to lower lungs bilaterally may represent any combination of atelectasis and pneumonia. at 0756 Reported and signed by: Easton Sanz MD CC: Gigi Gonzalez MD; Liliana Gao MD Technologist: Zana PAPPAS(R) Trnscrd Date/Time/By: 02/14/2019 (0756) : By: [id number] Orig Print D/T: S: 02/14/2019 (0755) PAGE 1 Signed Report COMPREHENSIVE METABOLIC [id number] 06:45:00* Test Item Value Reference Range Comments SODIUM (test code=NA) 138 mmol/L 136-145 POTASSIUM (test code=K) 3.9 mmol/L 3.5-5.1 CHLORIDE (test code=CL) 101.0 mmol/L 98-107 CARBON DIOXIDE (test code=CO2) 26.0 mmol/L 21-32 ANION GAP (test code=GAP) 14.9 10-20 GLUCOSE (test code=GLU) 226 mg/dL 74-106 BLOOD UREA NITROGEN (test code=BUN) 28 mg/dL 7-18 GLOMERULAR FILTRATION RATE (test code=GFR) 16 mL/min >=60 Estimated GFR by using Modified MDRD formula.Chronic kidney disease is defined as either kidney damageor GFR <60 mL/min/1.73 m2 for >3 months. CREATININE (test code=CREAT) 4.10 mg/dL 0.7-1.3 BUN/CREATININE RATIO (test code=BUN/CREA) 6.8 10-20 TOTAL PROTEIN (test code=PROT) 6.1 gram/dL 6.4-8.2 ALBUMIN (test code=ALB) 2.2 g/dL 3.4-5.0 GLOBULIN (test code=GLOB) 3.9 gram/dL 2.7-4.2 ALBUMIN/GLOBULIN RATIO (test code=A/G) 0.6 0.75-1.50 CALCIUM (test code=CA) 8.0 mg/dL 8.5-10.1 BILIRUBIN TOTAL (test code=BILT) 0.40 mg/dL 0.0-1.0 SGOT/AST (test code=AST) 18 IUnit/L 15-37 SGPT/ALT (test code=ALT) 21 IUnit/L 12-78 ALKALINE PHOSPHATASE TOTAL (test code=ALKP) 135 IUnit/L 45-117 Note change in reference range due to change in reagent. [id number] 06:45:00* Test Item Value Reference Range Comments PHOSPHORUS (test code=PHOS) 3.8 mg/dL 2.5-4.9 [id number] 06:45:00* Test Item Value Reference Range Comments MAGNESIUM (test code=MAG) 1.9 mg/dL 1.8-2.4 CALCIUM [id number] 06:45:00* Test Item Value Reference Range Comments CALCIUM IONIZED (test code=KANIKA) 1.23 mmol/L 1.12-1.32 COMPREHENSIVE METABOLIC [id number] 06:38:00* Test Item Value Reference Range Comments SODIUM (test code=NA) 138 mmol/L 136-145 POTASSIUM (test code=K) 3.9 mmol/L 3.5-5.1 CHLORIDE (test code=CL) 101.0 mmol/L 98-107 CARBON DIOXIDE (test code=CO2) mmol/L 21-32 ANION GAP (test code=GAP) 10-20 GLUCOSE (test code=GLU) mg/dL 74-106 BLOOD UREA NITROGEN (test code=BUN) mg/dL 7-18 GLOMERULAR FILTRATION RATE (test code=GFR) mL/min >=60 CREATININE (test code=CREAT) mg/dL 0.7-1.3 BUN/CREATININE RATIO (test code=BUN/CREA) 10-20 TOTAL PROTEIN (test code=PROT) gram/dL 6.4-8.2 ALBUMIN (test code=ALB) g/dL 3.4-5.0 GLOBULIN (test code=GLOB) gram/dL 2.7-4.2 ALBUMIN/GLOBULIN RATIO (test code=A/G) 0.75-1.50 CALCIUM (test code=CA) mg/dL 8.5-10.1 BILIRUBIN TOTAL (test code=BILT) mg/dL 0.0-1.0 SGOT/AST (test code=AST) IUnit/L 15-37 SGPT/ALT (test code=ALT) IUnit/L 12-78 ALKALINE PHOSPHATASE TOTAL (test code=ALKP) IUnit/L 45-117 [id number] 06:38:00* Test Item Value Reference Range Comments PHOSPHORUS (test code=PHOS) mg/dL 2.5-4.9 [id number] 06:38:00* Test Item Value Reference Range Comments MAGNESIUM (test code=MAG) mg/dL 1.8-2.4 CALCIUM [id number] 06:38:00* Test Item Value Reference Range Comments CALCIUM IONIZED (test code=KANIKA) 1.23 mmol/L 1.12-1.32 COMPREHENSIVE METABOLIC [id number] 06:32:00* Test Item Value Reference Range Comments SODIUM (test code=NA) mmol/L 136-145 POTASSIUM (test code=K) mmol/L 3.5-5.1 CHLORIDE (test code=CL) mmol/L 98-107 CARBON DIOXIDE (test code=CO2) mmol/L 21-32 ANION GAP (test code=GAP) 10-20 GLUCOSE (test code=GLU) mg/dL 74-106 BLOOD UREA NITROGEN (test code=BUN) mg/dL 7-18 GLOMERULAR FILTRATION RATE (test code=GFR) mL/min >=60 CREATININE (test code=CREAT) mg/dL 0.7-1.3 BUN/CREATININE RATIO (test code=BUN/CREA) 10-20 TOTAL PROTEIN (test code=PROT) gram/dL 6.4-8.2 ALBUMIN (test code=ALB) g/dL 3.4-5.0 GLOBULIN (test code=GLOB) gram/dL 2.7-4.2 ALBUMIN/GLOBULIN RATIO (test code=A/G) 0.75-1.50 CALCIUM (test code=CA) mg/dL 8.5-10.1 BILIRUBIN TOTAL (test code=BILT) mg/dL 0.0-1.0 SGOT/AST (test code=AST) IUnit/L 15-37 SGPT/ALT (test code=ALT) IUnit/L 12-78 ALKALINE PHOSPHATASE TOTAL (test code=ALKP) IUnit/L 45-117 [id number] 06:32:00* Test Item Value Reference Range Comments PHOSPHORUS (test code=PHOS) mg/dL 2.5-4.9 [id number] 06:32:00* Test Item Value Reference Range Comments MAGNESIUM (test code=MAG) mg/dL 1.8-2.4 CALCIUM [id number] 06:32:00* Test Item Value Reference Range Comments CALCIUM IONIZED (test code=KANIKA) 1.23 mmol/L 1.12-1.32 CBC W/AUTO [id number] 06:24:00* Test Item Value Reference Range Comments WHITE BLOOD CELL (test code=WBC) 9.2 K/mm3 4.5-12.5 RED BLOOD CELL (test code=RBC) 3.15 mill/mm3 4.0-5.8 HEMOGLOBIN (test code=HGB) 8.7 gram/dL 13.0-17.5 HEMATOCRIT (test code=HCT) 27.0 % 42.0-52.0 MEAN CELL VOLUME (test code=MCV) 85.7 fL 80-98 MEAN CELL HGB (test code=MCH) 27.6 picogram 27.0-33.0 MEAN CELL HGB CONCETRATION (test code=MCHC) 32.2 gram/dL 33.0-36.0 RED CELL DISTRIBUTION WIDTH (test code=RDW) 13.4 % 11.6-16.2 RED CELL DISTRIBUTION WIDTH SD (test code=RDW-SD) 41.6 fL 37.0-51.0 PLATELET COUNT (test code=PLT) 209 K/mm3 150-450 MEAN PLATELET VOLUME (test code=MPV) 10.1 fL 6.7-11.0 NEUTROPHIL % (test code=NT%) 67.8 % 39.0-69.0 IMMATURE GRANULOCYTE % (test code=IG%) 0.5 % 0.0-5.0 LYMPHOCYTE % (test code=LY%) 18.1 % 25.0-55.0 MONOCYTE % (test code=MO%) 13.1 % 0.0-10.0 EOSINOPHIL % (test code=EO%) 0.4 % 0.0-5.0 BASOPHIL % (test code=BA%) 0.1 % 0.0-1.0 NUCLEATED RBC % (test code=NRBC%) 0.0 % 0-0 NEUTROPHIL # (test code=NT#) 6.23 K/mm3 1.8-7.7 IMMATURE GRANULOCYTE # (test code=IG#) 0.05 x10 3/uL 0-0.03 LYMPHOCYTE # (test code=LY#) 1.67 K/mm3 1.0-5.0 MONOCYTE # (test code=MO#) 1.21 K/mm3 0-0.8 EOSINOPHIL # (test code=EO#) 0.04 K/mm3 0.0-0.5 BASOPHIL # (test code=BA#) 0.01 K/mm3 0.0-0.2 NUCLEATED RBC # (test code=NRBC#) 0.00 K/mm3 0.0-0.1 [id number] 06:08:00* Test Item Value Reference Range Comments GLUBED (test code=GLUBED) 231 mg/dL 74-106 Performed by certified band aid machine operator at [facility] [id number] 23:08:00* Test Item Value Reference Range Comments GLUBED (test code=GLUBED) 178 mg/dL 74-106 Performed by certified band aid machine operator at [facility] [id number] 16:34:00* Test Item Value Reference Range Comments GLUBED (test code=GLUBED) 166 mg/dL 74-106 Performed by certified band aid machine operator at [facility] AG HEPAT B [id number] 15:54:00* Test Item Value Reference Range Comments AG HEPAT B SURF (test code=HBSAG) Nonreactive Index Nonreactive - XR ABDOMEN AP 1 [id number] 14:20:00 FAX: Gigi Hanley MD [phone] [employer]: St: ADM FAX: Liliana Gao MD [phone] Name: PHILIP HALEY [facility] : 1980 Age/S: 38/M [address] [facility] Unit #: [id number] Loc: V.S23 [place] [address] Phys: Liliana Gao MD Acct: [id number] Dis Date: Status: ADM IN PHONE #: [phone] Exam Date: 02/13/2019 1412 FAX #: [phone] Reason: gas EXAMS: CPT CODE: [id number] XR ABDOMEN AP 1 V 04738 TECHNIQUE - XR ABDOMEN AP 1 V . COMPARISON: None provided. HISTORY: 38 years Male gas FINDINGS: Bones: Age appropriate. Urinary tract calculi: No radiopaque stones. Bowel and other: No abnormal small or large bowel dilatation. Fecal material in colon is within normal limits. No visceromegaly. No unusual gas collections. No free air under diaphragm. Other: Catheter extends to urinary bladder. IMPRESSION: No abdominal abnormalities noted. at 1420 Reported and signed by: Tomasz Kelley M.D. CC: Gigi Gonzalez MD; Liliana Gao MD Technologist: Maddi Bonilla RT(R) Trnscrd Date/Time/By: 02/13/2019 (3148) : By: syeda [place] Print D/T: S: 02/13/2019 (5054) P AGE 1 Signed Report - XR CHEST 1 [id number] 11:04:00 FAX: Gigi Hanley MD [phone] [employer]: St: ADM FAX: Liliana Gao MD [phone] Name: TERAPHILIP [facility] : 1980 Age/S: 38/M [address] [facility] Unit #: [id number] Loc: [address] [address] Phys: Liliana Gao MD Acct: [id number] Dis Date: Status: ADM IN PHONE #: [phone] Exam Date: 02/13/2019 1032 FAX #: [phone] Reason: FEED TUBE PLACEMENT EXAMS: CPT CODE: [id number] XR CHEST 1 V 32715 TECHNIQUE - XR CHEST 1 V . COMPARISON: Chest x-ray 02/13/2019 at 0851 hours HISTORY: 38 years Male FEED TUBE PLACEMENT FINDINGS: NG tube extends down to the stomach. ET tube in place. Right IJ catheter in place. Mild congestion. Scattered atelectasis versus infiltrates bilaterally. Air-filled loops of bowel upper abdomen. Overall since old study 02/13/2019 at 0851 hours NG tube has been advanced to the stomach and is in good position. No change in the lung scott. IMPRESSION: Overall since old study 02/13/2019 at 0851 hours NG tube has been advanced to the stomach and is in good position. No change in the lung scott. at 1104 Reported and signed by: Tomasz Kelley M.D. CC: Gigi Gonzalez MD; Liliana Gao MD Technologist: Zana Kenny RT(R); Maddi Bonilla RT(R) Trnscrd Date/Time/By: 02/13/2019 (8433) : By: Julián Orig Print D/T: S: 02/13/2019 (5042) PAGE 1 Signed Report [id number] 10:43:00* Test Item Value Reference Range Comments GLUBED (test code=GLUBED) 160 mg/dL 74-106 Performed by certified band aid machine operator at [facility] - XR CHEST 1 [id number] 09:24:00 FAX: Gigi Hanley MD [phone] [employer]: St: ADM FAX: Liliana Gao MD [phone] Name: PHILIP HALEY [facility] : 1980 Age/S: 38/M [address] [facility] Unit #: [id number] Loc: V.3 [place] [address] Phys: Liliana Gao MD Acct: [id number] Dis Date: Status: ADM IN PHONE #: [phone] Exam Date: 02/13/2019 0850 FAX #: [phone] Reason: OGT EXAMS: CPT CODE: [id number] XR CHEST 1 V 56225 TECHNIQUE - XR CHEST 1 V . COMPARISON: Chest x-ray 02/12/2019 HISTORY: 38 years Male OGT FINDINGS: NG tube tip projects over mid esophagus, please advance to the stomach. ET tube in place. Right IJ catheter in place. Subtle congestion with increased markings. No pneumothorax. Cardiac silhouette is prominent. Overall since the old study 02/12/2019 NG tube has been pulled back and is in the midesophagus please advance to the stomach. Increased atelectasis versus infiltrates versus congestion in medial right midlung field. IMPRESSION: Overall since the old study 02/12/2019 NG tube has been pulled back and is in the midesophagus please advance to the s tomach. Increased atelectasis versus infiltrates versus congestion in me dial right midlung field. at 0924 Reported and signed by: Jamison Kelley M.D. CC: Gigi Gonzalez MD; Liliana Gao MD T echnologist: Zana Kenny RT(R); Maddi Bonilla RT(R) Trnscrd Date /Time/By: 02/13/2019 (923) : By: Julián Orig Print D/T: S: 019 (9260) PAGE 1 Signed Report BASIC METABOLIC [id number] 06:28:00* Test Item Value Reference Range Comments SODIUM (test code=NA) 136 mmol/L 136-145 POTASSIUM (test code=K) 4.4 mmol/L 3.5-5.1 CHLORIDE (test code=CL) 103.0 mmol/L 98-107 CARBON DIOXIDE (test code=CO2) 23.0 mmol/L 21-32 ANION GAP (test code=GAP) 14.4 10-20 GLUCOSE (test code=GLU) 165 mg/dL 74-106 BLOOD UREA NITROGEN (test code=BUN) 27 mg/dL 7-18 RESULT VERIFIED BY REPEAT ANALYSIS GLOMERULAR FILTRATION RATE (test code=GFR) 19 mL/min >=60 Estimated GFR by using Modified MDRD formula.Chronic kidney disease is defined as either kidney damageor GFR <60 mL/min/1.73 m2 for >3 months. CREATININE (test code=CREAT) 3.60 mg/dL 0.7-1.3 BUN/CREATININE RATIO (test code=BUN/CREA) 7.5 10-20 CALCIUM (test code=CA) 8.5 mg/dL 8.5-10.1 [id number] 06:28:00* Test Item Value Reference Range Comments PHOSPHORUS (test code=PHOS) 3.9 mg/dL 2.5-4.9 [id number] 06:28:00* Test Item Value Reference Range Comments MAGNESIUM (test code=MAG) 2.1 mg/dL 1.8-2.4 CALCIUM [id number] 06:28:00* Test Item Value Reference Range Comments CALCIUM IONIZED (test code=KANIKA) 1.23 mmol/L 1.12-1.32 BASIC METABOLIC [id number] 06:09:00* Test Item Value Reference Range Comments SODIUM (test code=NA) 136 mmol/L 136-145 POTASSIUM (test code=K) 4.4 mmol/L 3.5-5.1 CHLORIDE (test code=CL) 103.0 mmol/L 98-107 CARBON DIOXIDE (test code=CO2) mmol/L 21-32 ANION GAP (test code=GAP) 10-20 GLUCOSE (test code=GLU) mg/dL 74-106 BLOOD UREA NITROGEN (test code=BUN) mg/dL 7-18 GLOMERULAR FILTRATION RATE (test code=GFR) mL/min >=60 CREATININE (test code=CREAT) mg/dL 0.7-1.3 BUN/CREATININE RATIO (test code=BUN/CREA) 10-20 CALCIUM (test code=CA) mg/dL 8.5-10.1 [id number] 06:09:00* Test Item Value Reference Range Comments PHOSPHORUS (test code=PHOS) mg/dL 2.5-4.9 [id number] 06:09:00* Test Item Value Reference Range Comments MAGNESIUM (test code=MAG) mg/dL 1.8-2.4 CALCIUM [id number] 06:09:00* Test Item Value Reference Range Comments CALCIUM IONIZED (test code=KANIKA) 1.23 mmol/L 1.12-1.32 BASIC METABOLIC [id number] 06:03:00* Test Item Value Reference Range Comments SODIUM (test code=NA) mmol/L 136-145 POTASSIUM (test code=K) mmol/L 3.5-5.1 CHLORIDE (test code=CL) mmol/L 98-107 CARBON DIOXIDE (test code=CO2) mmol/L 21-32 ANION GAP (test code=GAP) 10-20 GLUCOSE (test code=GLU) mg/dL 74-106 BLOOD UREA NITROGEN (test code=BUN) mg/dL 7-18 GLOMERULAR FILTRATION RATE (test code=GFR) mL/min >=60 CREATININE (test code=CREAT) mg/dL 0.7-1.3 BUN/CREATININE RATIO (test code=BUN/CREA) 10-20 CALCIUM (test code=CA) mg/dL 8.5-10.1 [id number] 06:03:00* Test Item Value Reference Range Comments PHOSPHORUS (test code=PHOS) mg/dL 2.5-4.9 [id number] 06:03:00* Test Item Value Reference Range Comments MAGNESIUM (test code=MAG) mg/dL 1.8-2.4 CALCIUM [id number] 06:03:00* Test Item Value Reference Range Comments CALCIUM IONIZED (test code=KANIKA) 1.23 mmol/L 1.12-1.32 CBC W/AUTO [id number] 06:01:00* Test Item Value Reference Range Comments WHITE BLOOD CELL (test code=WBC) 11.6 K/mm3 4.5-12.5 RED BLOOD CELL (test code=RBC) 3.34 mill/mm3 4.0-5.8 HEMOGLOBIN (test code=HGB) 9.3 gram/dL 13.0-17.5 HEMATOCRIT (test code=HCT) 29.9 % 42.0-52.0 MEAN CELL VOLUME (test code=MCV) 89.5 fL 80-98 MEAN CELL HGB (test code=MCH) 27.8 picogram 27.0-33.0 MEAN CELL HGB CONCETRATION (test code=MCHC) 31.1 gram/dL 33.0-36.0 RED CELL DISTRIBUTION WIDTH (test code=RDW) 13.5 % 11.6-16.2 RED CELL DISTRIBUTION WIDTH SD (test code=RDW-SD) 44.1 fL 37.0-51.0 PLATELET COUNT (test code=PLT) 193 K/mm3 150-450 MEAN PLATELET VOLUME (test code=MPV) 10.7 fL 6.7-11.0 NEUTROPHIL % (test code=NT%) 79.0 % 39.0-69.0 IMMATURE GRANULOCYTE % (test code=IG%) 0.5 % 0.0-5.0 LYMPHOCYTE % (test code=LY%) 11.2 % 25.0-55.0 MONOCYTE % (test code=MO%) 8.8 % 0.0-10.0 EOSINOPHIL % (test code=EO%) 0.3 % 0.0-5.0 BASOPHIL % (test code=BA%) 0.2 % 0.0-1.0 NUCLEATED RBC % (test code=NRBC%) 0.0 % 0-0 NEUTROPHIL # (test code=NT#) 9.20 K/mm3 1.8-7.7 IMMATURE GRANULOCYTE # (test code=IG#) 0.06 x10 3/uL 0-0.03 LYMPHOCYTE # (test code=LY#) 1.30 K/mm3 1.0-5.0 MONOCYTE # (test code=MO#) 1.03 K/mm3 0-0.8 EOSINOPHIL # (test code=EO#) 0.03 K/mm3 0.0-0.5 BASOPHIL # (test code=BA#) 0.02 K/mm3 0.0-0.2 NUCLEATED RBC # (test code=NRBC#) 0.00 K/mm3 0.0-0.1 [id number] 17:54:00* Test Item Value Reference Range Comments GLUBED (test code=GLUBED) 149 mg/dL 74-106 Performed by certified band aid machine operator at [facility] [id number] 16:35:00* Test Item Value Reference Range Comments GLUBED (test code=GLUBED) 110 mg/dL 74-106 Performed by certified band aid machine operator at [facility] CBC W/AUTO [id number] 11:09:00* Test Item Value Reference Range Comments WHITE BLOOD CELL (test code=WBC) 11.5 K/mm3 4.5-12.5 RED BLOOD CELL (test code=RBC) 3.62 mill/mm3 4.0-5.8 HEMOGLOBIN (test code=HGB) 10.1 gram/dL 13.0-17.5 HEMATOCRIT (test code=HCT) 32.6 % 42.0-52.0 MEAN CELL VOLUME (test code=MCV) 90.1 fL 80-98 MEAN CELL HGB (test code=MCH) 27.9 picogram 27.0-33.0 MEAN CELL HGB CONCETRATION (test code=MCHC) 31.0 gram/dL 33.0-36.0 RED CELL DISTRIBUTION WIDTH (test code=RDW) 14.0 % 11.6-16.2 RED CELL DISTRIBUTION WIDTH SD (test code=RDW-SD) 45.6 fL 37.0-51.0 PLATELET COUNT (test code=PLT) 196 K/mm3 150-450 MEAN PLATELET VOLUME (test code=MPV) 11.6 fL 6.7-11.0 NEUTROPHIL % (test code=NT%) 79.8 % 39.0-69.0 IMMATURE GRANULOCYTE % (test code=IG%) 0.4 % 0.0-5.0 LYMPHOCYTE % (test code=LY%) 9.0 % 25.0-55.0 MONOCYTE % (test code=MO%) 10.2 % 0.0-10.0 EOSINOPHIL % (test code=EO%) 0.3 % 0.0-5.0 BASOPHIL % (test code=BA%) 0.3 % 0.0-1.0 NUCLEATED RBC % (test code=NRBC%) 0.0 % 0-0 NEUTROPHIL # (test code=NT#) 9.20 K/mm3 1.8-7.7 IMMATURE GRANULOCYTE # (test code=IG#) 0.05 x10 3/uL 0-0.03 LYMPHOCYTE # (test code=LY#) 1.04 K/mm3 1.0-5.0 MONOCYTE # (test code=MO#) 1.18 K/mm3 0-0.8 EOSINOPHIL # (test code=EO#) 0.03 K/mm3 0.0-0.5 BASOPHIL # (test code=BA#) 0.03 K/mm3 0.0-0.2 NUCLEATED RBC # (test code=NRBC#) 0.00 K/mm3 0.0-0.1 MANUAL DIFF REQUIRED (test code=MDIFF) NO COMPREHENSIVE METABOLIC [id number] 09:40:00* Test Item Value Reference Range Comments SODIUM (test code=NA) 139 mmol/L 136-145 POTASSIUM (test code=K) 4.8 mmol/L 3.5-5.1 CHLORIDE (test code=CL) 104.0 mmol/L 98-107 CARBON DIOXIDE (test code=CO2) 27.0 mmol/L 21-32 ANION GAP (test code=GAP) 12.8 10-20 GLUCOSE (test code=GLU) 156 mg/dL 74-106 BLOOD UREA NITROGEN (test code=BUN) 9 mg/dL 7-18 GLOMERULAR FILTRATION RATE (test code=GFR) 45 mL/min >=60 Estimated GFR by using Modified MDRD formula.Chronic kidney disease is defined as either kidney damageor GFR <60 mL/min/1.73 m2 for >3 months. CREATININE (test code=CREAT) 1.70 mg/dL 0.7-1.3 BUN/CREATININE RATIO (test code=BUN/CREA) 5.3 10-20 TOTAL PROTEIN (test code=PROT) 6.3 gram/dL 6.4-8.2 ALBUMIN (test code=ALB) 2.4 g/dL 3.4-5.0 GLOBULIN (test code=GLOB) 3.9 gram/dL 2.7-4.2 ALBUMIN/GLOBULIN RATIO (test code=A/G) 0.6 0.75-1.50 CALCIUM (test code=CA) 8.4 mg/dL 8.5-10.1 BILIRUBIN TOTAL (test code=BILT) 0.50 mg/dL 0.0-1.0 SGOT/AST (test code=AST) 30 IUnit/L 15-37 SGPT/ALT (test code=ALT) 31 IUnit/L 12-78 ALKALINE PHOSPHATASE TOTAL (test code=ALKP) 153 IUnit/L 45-117 Note change in reference range due to change in reagent. [id number] 09:40:00* Test Item Value Reference Range Comments MAGNESIUM (test code=MAG) 2.0 mg/dL 1.8-2.4 COMPREHENSIVE METABOLIC [id number] 09:38:00* Test Item Value Reference Range Comments SODIUM (test code=NA) 139 mmol/L 136-145 POTASSIUM (test code=K) 4.8 mmol/L 3.5-5.1 CHLORIDE (test code=CL) 104.0 mmol/L 98-107 CARBON DIOXIDE (test code=CO2) mmol/L 21-32 ANION GAP (test code=GAP) 10-20 GLUCOSE (test code=GLU) mg/dL 74-106 BLOOD UREA NITROGEN (test code=BUN) mg/dL 7-18 GLOMERULAR FILTRATION RATE (test code=GFR) mL/min >=60 CREATININE (test code=CREAT) mg/dL 0.7-1.3 BUN/CREATININE RATIO (test code=BUN/CREA) 10-20 TOTAL PROTEIN (test code=PROT) gram/dL 6.4-8.2 ALBUMIN (test code=ALB) g/dL 3.4-5.0 GLOBULIN (test code=GLOB) gram/dL 2.7-4.2 ALBUMIN/GLOBULIN RATIO (test code=A/G) 0.75-1.50 CALCIUM (test code=CA) mg/dL 8.5-10.1 BILIRUBIN TOTAL (test code=BILT) mg/dL 0.0-1.0 SGOT/AST (test code=AST) IUnit/L 15-37 SGPT/ALT (test code=ALT) IUnit/L 12-78 ALKALINE PHOSPHATASE TOTAL (test code=ALKP) IUnit/L 45-117 [id number] 09:38:00* Test Item Value Reference Range Comments MAGNESIUM (test code=MAG) mg/dL 1.8-2.4 - XR CHEST 1 [id number] 08:00:00 FAX: Gigi Hanley MD [employer]: B St: ADM FAX: Liliana Gao MD [phone] Name: PHILIP HALEY [facility] : 1980 Age/S: 38/M [address] [facility] Unit #: [id number] Loc: V.S23 [place] [address] Phys: Liliana Gao MD Acct: [id number] Dis Date: Status: ADM IN PHONE #: [phone] Exam Date: 02/12/2019 0747 FAX #: [phone] Reason: ett EXAMS: CPT CODE: [id number] XR CHEST 1 V 94059 EXAM: Chest x-ray, one view; INFORMATION: Status post cardiac arrest; IMPRESSION: 1. No significant change compared with yesterday's study; 2. Well-positioned lines and tubes. 3. Mild cardiomegaly. 4. Small platelike atelectasis in the lingula; otherwise, lungs are well aerated and without pulmonary edema. at 0800 Reported and signed by: Efra Irving M.D. CC: Gigi Gonzalez MD; Liliana Gao MD Technologist: Anna Church(R) Trnscrd Date/Time/By: 02/12/2019 (0800) : By: robert LIMGRW Orig Print D/T: S: 02/12/2019 (0803) PAGE 1 Signed Report [id number] 07:56:00* Test Item Value Reference Range Comments AMMONIA (test code=AMM) 23 umol/L 11-32 ARTERIAL BLOOD [id number] 04:16:00* Test Item Value Reference Range Comments ARTERIAL BLOOD GAS PH (test code=PHA) 7.34 7.35-7.45 ARTERIAL BLOOD GAS PCO2 (test code=PCO2A) 45.3 mm Hg 35-45 ARTERIAL BLOOD GAS PO2 (test code=PO2A) 82.9 mmHg 80-100 BICARBONATE TOTAL HCO3 (test code=HCO3) 23.6 mmol/L 23.0-27.0 BASE EXCESS (test code=RANJAN) -2.3 mmol/L -3.0-5.0 ABG O2 SATURATION (test code=SATA) 94.7 % 90.0-98.0 ABG TYPE (test code=TYPEA) Arterial FIO2 (test code=FIO2A) 40.0 ABG VENT MODE (test code=MODEA) VC+ ABG VENT RESP RATE (test code=RRA) 14.0 per min ABG TIDAL VOLUME (test code=TVA) 500.0 mL ABG PEEP (test code=PEEPA) 7.0 cmH2O ABG SITE (test code=SITEA) ARTERIAL LINE HEMATOCRIT (test code=HCT/ABG) 32 % 42-52 TOTAL HGB (test code=THB) 11.0 gram/dL 13.0-17.5 HGB O2 SAT (test code=HBOSAT) 93.9 % 94.00-98.00 CARBOXYHEMOGLOBIN (test code=HOHGBT) 0.3 %totalHg 0.5-1.5 Results called to and read back by penny 04:14 - 02/12/2019; by marcelo METHEMOGLOBIN (test code=METHGB) 0.5 % 0.0-1.50 O2 CONTENT (test code=O2CT) 14.6 % vol 18.0-22.0 COMPREHENSIVE METABOLIC [id number] 01:59:00* Test Item Value Reference Range Comments SODIUM (test code=NA) 138 mmol/L 136-145 POTASSIUM (test code=K) 5.1 mmol/L 3.5-5.1 CHLORIDE (test code=CL) 104.9 mmol/L 98-107 CARBON DIOXIDE (test code=CO2) 27.0 mmol/L 21-32 ANION GAP (test code=GAP) 11.2 10-20 GLUCOSE (test code=GLU) 149 mg/dL 74-106 BLOOD UREA NITROGEN (test code=BUN) 10 mg/dL 7-18 GLOMERULAR FILTRATION RATE (test code=GFR) 48 mL/min >=60 Estimated GFR by using Modified MDRD formula.Chronic kidney disease is defined as either kidney damageor GFR <60 mL/min/1.73 m2 for >3 months. CREATININE (test code=CREAT) 1.62 mg/dL 0.7-1.3 BUN/CREATININE RATIO (test code=BUN/CREA) 6.2 10-20 TOTAL PROTEIN (test code=PROT) 6.4 gram/dL 6.4-8.2 ALBUMIN (test code=ALB) 2.3 g/dL 3.4-5.0 GLOBULIN (test code=GLOB) 4.1 gram/dL 2.7-4.2 ALBUMIN/GLOBULIN RATIO (test code=A/G) 0.6 0.75-1.50 CALCIUM (test code=CA) 7.9 mg/dL 8.5-10.1 BILIRUBIN TOTAL (test code=BILT) 0.50 mg/dL 0.0-1.0 SGOT/AST (test code=AST) 29 IUnit/L 15-37 SGPT/ALT (test code=ALT) 31 IUnit/L 12-78 ALKALINE PHOSPHATASE TOTAL (test code=ALKP) 153 IUnit/L 45-117 Note change in reference range due to change in reagent. [id number] 01:59:00* Test Item Value Reference Range Comments PHOSPHORUS (test code=PHOS) 3.6 mg/dL 2.5-4.9 [id number] 01:59:00* Test Item Value Reference Range Comments MAGNESIUM (test code=MAG) 1.9 mg/dL 1.8-2.4 CALCIUM [id number] 01:59:00* Test Item Value Reference Range Comments CALCIUM IONIZED (test code=KANIKA) 1.14 mmol/L 1.12-1.32 COMPREHENSIVE METABOLIC [id number] 00:58:00* Test Item Value Reference Range Comments SODIUM (test code=NA) mmol/L 136-145 POTASSIUM (test code=K) mmol/L 3.5-5.1 CHLORIDE (test code=CL) mmol/L 98-107 CARBON DIOXIDE (test code=CO2) mmol/L 21-32 ANION GAP (test code=GAP) 10-20 GLUCOSE (test code=GLU) mg/dL 74-106 BLOOD UREA NITROGEN (test code=BUN) mg/dL 7-18 GLOMERULAR FILTRATION RATE (test code=GFR) mL/min >=60 CREATININE (test code=CREAT) mg/dL 0.7-1.3 BUN/CREATININE RATIO (test code=BUN/CREA) 10-20 TOTAL PROTEIN (test code=PROT) gram/dL 6.4-8.2 ALBUMIN (test code=ALB) g/dL 3.4-5.0 GLOBULIN (test code=GLOB) gram/dL 2.7-4.2 ALBUMIN/GLOBULIN RATIO (test code=A/G) 0.75-1.50 CALCIUM (test code=CA) mg/dL 8.5-10.1 BILIRUBIN TOTAL (test code=BILT) mg/dL 0.0-1.0 SGOT/AST (test code=AST) IUnit/L 15-37 SGPT/ALT (test code=ALT) IUnit/L 12-78 ALKALINE PHOSPHATASE TOTAL (test code=ALKP) IUnit/L 45-117 [id number] 00:58:00* Test Item Value Reference Range Comments PHOSPHORUS (test code=PHOS) mg/dL 2.5-4.9 [id number] 00:58:00* Test Item Value Reference Range Comments MAGNESIUM (test code=MAG) mg/dL 1.8-2.4 CALCIUM [id number] 00:58:00* Test Item Value Reference Range Comments CALCIUM IONIZED (test code=KANIKA) 1.14 mmol/L 1.12-1.32 [id number] 19:27:00* Test Item Value Reference Range Comments PHOSPHORUS (test code=PHOS) 4.5 mg/dL 2.5-4.9 CALCIUM [id number] 19:27:00* Test Item Value Reference Range Comments CALCIUM IONIZED (test code=KANIKA) 1.21 mmol/L 1.12-1.32 COMPREHENSIVE METABOLIC [id number] 19:27:00* Test Item Value Reference Range Comments SODIUM (test code=NA) 138 mmol/L 136-145 POTASSIUM (test code=K) 4.8 mmol/L 3.5-5.1 CHLORIDE (test code=CL) 104.0 mmol/L 98-107 CARBON DIOXIDE (test code=CO2) 26.0 mmol/L 21-32 ANION GAP (test code=GAP) 12.8 10-20 GLUCOSE (test code=GLU) 137 mg/dL 74-106 BLOOD UREA NITROGEN (test code=BUN) 10 mg/dL 7-18 GLOMERULAR FILTRATION RATE (test code=GFR) 56 mL/min >=60 Estimated GFR by using Modified MDRD formula.Chronic kidney disease is defined as either kidney damageor GFR <60 mL/min/1.73 m2 for >3 months. CREATININE (test code=CREAT) 1.40 mg/dL 0.7-1.3 BUN/CREATININE RATIO (test code=BUN/CREA) 7.1 10-20 TOTAL PROTEIN (test code=PROT) 6.4 gram/dL 6.4-8.2 ALBUMIN (test code=ALB) 2.2 g/dL 3.4-5.0 GLOBULIN (test code=GLOB) 4.2 gram/dL 2.7-4.2 ALBUMIN/GLOBULIN RATIO (test code=A/G) 0.5 0.75-1.50 CALCIUM (test code=CA) 8.3 mg/dL 8.5-10.1 BILIRUBIN TOTAL (test code=BILT) 0.50 mg/dL 0.0-1.0 SGOT/AST (test code=AST) 24 IUnit/L 15-37 SGPT/ALT (test code=ALT) 28 IUnit/L 12-78 ALKALINE PHOSPHATASE TOTAL (test code=ALKP) 139 IUnit/L 45-117 Note change in reference range due to change in reagent. [id number] 19:27:00* Test Item Value Reference Range Comments MAGNESIUM (test code=MAG) 1.8 mg/dL 1.8-2.4 COMPREHENSIVE METABOLIC [id number] 19:17:00* Test Item Value Reference Range Comments SODIUM (test code=NA) 138 mmol/L 136-145 POTASSIUM (test code=K) 4.8 mmol/L 3.5-5.1 CHLORIDE (test code=CL) 104.0 mmol/L 98-107 CARBON DIOXIDE (test code=CO2) mmol/L 21-32 ANION GAP (test code=GAP) 10-20 GLUCOSE (test code=GLU) mg/dL 74-106 BLOOD UREA NITROGEN (test code=BUN) mg/dL 7-18 GLOMERULAR FILTRATION RATE (test code=GFR) mL/min >=60 CREATININE (test code=CREAT) mg/dL 0.7-1.3 BUN/CREATININE RATIO (test code=BUN/CREA) 10-20 TOTAL PROTEIN (test code=PROT) gram/dL 6.4-8.2 ALBUMIN (test code=ALB) g/dL 3.4-5.0 GLOBULIN (test code=GLOB) gram/dL 2.7-4.2 ALBUMIN/GLOBULIN RATIO (test code=A/G) 0.75-1.50 CALCIUM (test code=CA) mg/dL 8.5-10.1 BILIRUBIN TOTAL (test code=BILT) mg/dL 0.0-1.0 SGOT/AST (test code=AST) IUnit/L 15-37 SGPT/ALT (test code=ALT) IUnit/L 12-78 ALKALINE PHOSPHATASE TOTAL (test code=ALKP) IUnit/L 45-117 [id number] 19:17:00* Test Item Value Reference Range Comments MAGNESIUM (test code=MAG) mg/dL 1.8-2.4 [id number] 19:17:00* Test Item Value Reference Range Comments PHOSPHORUS (test code=PHOS) mg/dL 2.5-4.9 CALCIUM [id number] 19:17:00* Test Item Value Reference Range Comments CALCIUM IONIZED (test code=KANIKA) 1.21 mmol/L 1.12-1.32 CBC W/AUTO [id number] 12:17:00* Test Item Value Reference Range Comments WHITE BLOOD CELL (test code=WBC) 6.4 K/mm3 4.5-12.5 RED BLOOD CELL (test code=RBC) 3.25 mill/mm3 4.0-5.8 HEMOGLOBIN (test code=HGB) 9.2 gram/dL 13.0-17.5 HEMATOCRIT (test code=HCT) 27.1 % 42.0-52.0 MEAN CELL VOLUME (test code=MCV) 83.4 fL 80-98 MEAN CELL HGB (test code=MCH) 28.3 picogram 27.0-33.0 MEAN CELL HGB CONCETRATION (test code=MCHC) 33.9 gram/dL 33.0-36.0 RED CELL DISTRIBUTION WIDTH (test code=RDW) 13.7 % 11.6-16.2 RED CELL DISTRIBUTION WIDTH SD (test code=RDW-SD) 41.5 fL 37.0-51.0 PLATELET COUNT (test code=PLT) 151 K/mm3 150-450 MEAN PLATELET VOLUME (test code=MPV) 10.5 fL 6.7-11.0 NEUTROPHIL % (test code=NT%) 78.2 % 39.0-69.0 IMMATURE GRANULOCYTE % (test code=IG%) 0.3 % 0.0-5.0 LYMPHOCYTE % (test code=LY%) 11.0 % 25.0-55.0 MONOCYTE % (test code=MO%) 9.1 % 0.0-10.0 EOSINOPHIL % (test code=EO%) 1.1 % 0.0-5.0 BASOPHIL % (test code=BA%) 0.3 % 0.0-1.0 NUCLEATED RBC % (test code=NRBC%) 0.0 % 0-0 NEUTROPHIL # (test code=NT#) 5.00 K/mm3 1.8-7.7 IMMATURE GRANULOCYTE # (test code=IG#) 0.02 x10 3/uL 0-0.03 LYMPHOCYTE # (test code=LY#) 0.70 K/mm3 1.0-5.0 MONOCYTE # (test code=MO#) 0.58 K/mm3 0-0.8 EOSINOPHIL # (test code=EO#) 0.07 K/mm3 0.0-0.5 BASOPHIL # (test code=BA#) 0.02 K/mm3 0.0-0.2 NUCLEATED RBC # (test code=NRBC#) 0.00 K/mm3 0.0-0.1 MANUAL DIFF REQUIRED (test code=MDIFF) NO CALCIUM [id number] 12:16:00* Test Item Value Reference Range Comments CALCIUM IONIZED (test code=KANIKA) 1.22 mmol/L 1.12-1.32 COMPREHENSIVE METABOLIC [id number] 12:16:00* Test Item Value Reference Range Comments SODIUM (test code=NA) 139 mmol/L 136-145 POTASSIUM (test code=K) 4.2 mmol/L 3.5-5.1 CHLORIDE (test code=CL) 104.0 mmol/L 98-107 CARBON DIOXIDE (test code=CO2) 27.0 mmol/L 21-32 ANION GAP (test code=GAP) 12.2 10-20 GLUCOSE (test code=GLU) 158 mg/dL 74-106 BLOOD UREA NITROGEN (test code=BUN) 12 mg/dL 7-18 GLOMERULAR FILTRATION RATE (test code=GFR) 56 mL/min >=60 Estimated GFR by using Modified MDRD formula.Chronic kidney disease is defined as either kidney damageor GFR <60 mL/min/1.73 m2 for >3 months. CREATININE (test code=CREAT) 1.40 mg/dL 0.7-1.3 BUN/CREATININE RATIO (test code=BUN/CREA) 8.6 10-20 TOTAL PROTEIN (test code=PROT) 6.1 gram/dL 6.4-8.2 ALBUMIN (test code=ALB) 2.1 g/dL 3.4-5.0 GLOBULIN (test code=GLOB) 4.0 gram/dL 2.7-4.2 ALBUMIN/GLOBULIN RATIO (test code=A/G) 0.5 0.75-1.50 CALCIUM (test code=CA) 8.2 mg/dL 8.5-10.1 BILIRUBIN TOTAL (test code=BILT) 0.50 mg/dL 0.0-1.0 SGOT/AST (test code=AST) 23 IUnit/L 15-37 SGPT/ALT (test code=ALT) 28 IUnit/L 12-78 ALKALINE PHOSPHATASE TOTAL (test code=ALKP) 127 IUnit/L 45-117 Note change in reference range due to change in reagent. [id number] 12:16:00* Test Item Value Reference Range Comments PHOSPHORUS (test code=PHOS) 1.9 mg/dL 2.5-4.9 [id number] 12:16:00* Test Item Value Reference Range Comments MAGNESIUM (test code=MAG) 2.0 mg/dL 1.8-2.4 COMPREHENSIVE METABOLIC [id number] 12:08:00* Test Item Value Reference Range Comments SODIUM (test code=NA) 139 mmol/L 136-145 POTASSIUM (test code=K) 4.2 mmol/L 3.5-5.1 CHLORIDE (test code=CL) 104.0 mmol/L 98-107 CARBON DIOXIDE (test code=CO2) mmol/L 21-32 ANION GAP (test code=GAP) 10-20 GLUCOSE (test code=GLU) mg/dL 74-106 BLOOD UREA NITROGEN (test code=BUN) mg/dL 7-18 GLOMERULAR FILTRATION RATE (test code=GFR) mL/min >=60 CREATININE (test code=CREAT) mg/dL 0.7-1.3 BUN/CREATININE RATIO (test code=BUN/CREA) 10-20 TOTAL PROTEIN (test code=PROT) gram/dL 6.4-8.2 ALBUMIN (test code=ALB) g/dL 3.4-5.0 GLOBULIN (test code=GLOB) gram/dL 2.7-4.2 ALBUMIN/GLOBULIN RATIO (test code=A/G) 0.75-1.50 CALCIUM (test code=CA) mg/dL 8.5-10.1 BILIRUBIN TOTAL (test code=BILT) mg/dL 0.0-1.0 SGOT/AST (test code=AST) IUnit/L 15-37 SGPT/ALT (test code=ALT) IUnit/L 12-78 ALKALINE PHOSPHATASE TOTAL (test code=ALKP) IUnit/L 45-117 [id number] 12:08:00* Test Item Value Reference Range Comments PHOSPHORUS (test code=PHOS) mg/dL 2.5-4.9 [id number] 12:08:00* Test Item Value Reference Range Comments MAGNESIUM (test code=MAG) mg/dL 1.8-2.4 CALCIUM [id number] 08:08:00* Test Item Value Reference Range Comments CALCIUM IONIZED (test code=KANIKA) 1.23 mmol/L 1.12-1.32 COMPREHENSIVE METABOLIC [id number] 07:59:00* Test Item Value Reference Range Comments SODIUM (test code=NA) 138 mmol/L 136-145 POTASSIUM (test code=K) 4.2 mmol/L 3.5-5.1 CHLORIDE (test code=CL) 104.0 mmol/L 98-107 CARBON DIOXIDE (test code=CO2) 27.0 mmol/L 21-32 ANION GAP (test code=GAP) 11.2 10-20 GLUCOSE (test code=GLU) 166 mg/dL 74-106 BLOOD UREA NITROGEN (test code=BUN) 15 mg/dL 7-18 GLOMERULAR FILTRATION RATE (test code=GFR) 56 mL/min >=60 Estimated GFR by using Modified MDRD formula.Chronic kidney disease is defined as either kidney damageor GFR <60 mL/min/1.73 m2 for >3 months. CREATININE (test code=CREAT) 1.40 mg/dL 0.7-1.3 BUN/CREATININE RATIO (test code=BUN/CREA) 10.7 10-20 TOTAL PROTEIN (test code=PROT) 5.8 gram/dL 6.4-8.2 ALBUMIN (test code=ALB) 2.1 g/dL 3.4-5.0 GLOBULIN (test code=GLOB) 3.7 gram/dL 2.7-4.2 ALBUMIN/GLOBULIN RATIO (test code=A/G) 0.6 0.75-1.50 CALCIUM (test code=CA) 8.3 mg/dL 8.5-10.1 BILIRUBIN TOTAL (test code=BILT) 0.50 mg/dL 0.0-1.0 SGOT/AST (test code=AST) 26 IUnit/L 15-37 SGPT/ALT (test code=ALT) 26 IUnit/L 12-78 ALKALINE PHOSPHATASE TOTAL (test code=ALKP) 126 IUnit/L 45-117 Note change in reference range due to change in reagent. [id number] 07:59:00* Test Item Value Reference Range Comments MAGNESIUM (test code=MAG) 1.7 mg/dL 1.8-2.4 COMPREHENSIVE METABOLIC [id number] 07:53:00* Test Item Value Reference Range Comments SODIUM (test code=NA) 138 mmol/L 136-145 POTASSIUM (test code=K) 4.2 mmol/L 3.5-5.1 CHLORIDE (test code=CL) 104.0 mmol/L 98-107 CARBON DIOXIDE (test code=CO2) mmol/L 21-32 ANION GAP (test code=GAP) 10-20 GLUCOSE (test code=GLU) mg/dL 74-106 BLOOD UREA NITROGEN (test code=BUN) mg/dL 7-18 GLOMERULAR FILTRATION RATE (test code=GFR) mL/min >=60 CREATININE (test code=CREAT) mg/dL 0.7-1.3 BUN/CREATININE RATIO (test code=BUN/CREA) 10-20 TOTAL PROTEIN (test code=PROT) gram/dL 6.4-8.2 ALBUMIN (test code=ALB) g/dL 3.4-5.0 GLOBULIN (test code=GLOB) gram/dL 2.7-4.2 ALBUMIN/GLOBULIN RATIO (test code=A/G) 0.75-1.50 CALCIUM (test code=CA) mg/dL 8.5-10.1 BILIRUBIN TOTAL (test code=BILT) mg/dL 0.0-1.0 SGOT/AST (test code=AST) IUnit/L 15-37 SGPT/ALT (test code=ALT) IUnit/L 12-78 ALKALINE PHOSPHATASE TOTAL (test code=ALKP) IUnit/L 45-117 [id number] 07:53:00* Test Item Value Reference Range Comments MAGNESIUM (test code=MAG) mg/dL 1.8-2.4 [id number] 07:50:00* Test Item Value Reference Range Comments PHOSPHORUS (test code=PHOS) 2.5 mg/dL 2.5-4.9 ARTERIAL BLOOD [id number] 07:50:00* Test Item Value Reference Range Comments ARTERIAL BLOOD GAS PH (test code=PHA) 7.47 7.35-7.45 ARTERIAL BLOOD GAS PCO2 (test code=PCO2A) 33.1 mm Hg 35-45 ARTERIAL BLOOD GAS PO2 (test code=PO2A) 92.0 mmHg 80-100 BICARBONATE TOTAL HCO3 (test code=HCO3) 23.3 mmol/L 23.0-27.0 BASE EXCESS (test code=RANJAN) 0 mmol/L -3.0-5.0 ABG O2 SATURATION (test code=SATA) 96.0 % 90.0-98.0 ABG TYPE (test code=TYPEA) Arterial FIO2 (test code=FIO2A) 75.0 ABG VENT MODE (test code=MODEA) SIMV ABG VENT RESP RATE (test code=RRA) 14.0 per min ABG TIDAL VOLUME (test code=TVA) 500.0 mL ABG PEEP (test code=PEEPA) 9.0 cmH2O ABG PRESSURE SUPPORT (test code=PSABG) 10 cmH2O ABG SITE (test code=SITEA) ARTERIAL LINE HEMATOCRIT (test code=HCT/ABG) 29 % 42-52 TOTAL HGB (test code=THB) 9.8 gram/dL 13.0-17.5 HGB O2 SAT (test code=HBOSAT) 95.5 % 94.00-98.00 CARBOXYHEMOGLOBIN (test code=HOHGBT) 0.2 %totalHg 0.5-1.5 Results called to and read back by Giselle 04:20 - 02/11/2019; by Marcelo METHEMOGLOBIN (test code=METHGB) 0.3 % 0.0-1.50 O2 CONTENT (test code=O2CT) 13.3 % vol 18.0-22.0 CBC W/AUTO [id number] 07:17:00* Test Item Value Reference Range Comments WHITE BLOOD CELL (test code=WBC) 5.5 K/mm3 4.5-12.5 RED BLOOD CELL (test code=RBC) 3.13 mill/mm3 4.0-5.8 HEMOGLOBIN (test code=HGB) 8.4 gram/dL 13.0-17.5 RESULT VERIFIED BY REPEAT ANALYSIS HEMATOCRIT (test code=HCT) 26.0 % 42.0-52.0 MEAN CELL VOLUME (test code=MCV) 83.1 fL 80-98 MEAN CELL HGB (test code=MCH) 26.8 picogram 27.0-33.0 MEAN CELL HGB CONCETRATION (test code=MCHC) 32.3 gram/dL 33.0-36.0 RED CELL DISTRIBUTION WIDTH (test code=RDW) 13.6 % 11.6-16.2 RED CELL DISTRIBUTION WIDTH SD (test code=RDW-SD) 40.8 fL 37.0-51.0 PLATELET COUNT (test code=PLT) 156 K/mm3 150-450 RESULT VERIFIED BY REPEAT ANALYSIS MEAN PLATELET VOLUME (test code=MPV) 10.4 fL 6.7-11.0 NEUTROPHIL % (test code=NT%) 67.3 % 39.0-69.0 IMMATURE GRANULOCYTE % (test code=IG%) 0.4 % 0.0-5.0 LYMPHOCYTE % (test code=LY%) 22.9 % 25.0-55.0 MONOCYTE % (test code=MO%) 7.5 % 0.0-10.0 EOSINOPHIL % (test code=EO%) 1.5 % 0.0-5.0 BASOPHIL % (test code=BA%) 0.4 % 0.0-1.0 NUCLEATED RBC % (test code=NRBC%) 0.0 % 0-0 NEUTROPHIL # (test code=NT#) 3.71 K/mm3 1.8-7.7 IMMATURE GRANULOCYTE # (test code=IG#) 0.02 x10 3/uL 0-0.03 LYMPHOCYTE # (test code=LY#) 1.26 K/mm3 1.0-5.0 MONOCYTE # (test code=MO#) 0.41 K/mm3 0-0.8 EOSINOPHIL # (test code=EO#) 0.08 K/mm3 0.0-0.5 BASOPHIL # (test code=BA#) 0.02 K/mm3 0.0-0.2 NUCLEATED RBC # (test code=NRBC#) 0.00 K/mm3 0.0-0.1 MANUAL DIFF REQUIRED (test code=MDIFF) NO [id number] 06:02:00* Test Item Value Reference Range Comments GLUBED (test code=GLUBED) 155 mg/dL 74-106 Performed by certified band aid machine operator at [facility] - XR CHEST 1 [id number] 05:42:00 FAX: Gigi Hanley MD [employer]: [facility] FAX: Liliana Gao MD [phone] Name: PHILIP HALEY [facility] : 1980 Age/S: 38/M [address] [facility] Unit #: [id number] Loc: [address] [address] Phys: Liliana Gao MD Acct: [id number] Dis Date: Status: ADM IN PHONE #: [phone] Exam Date: 02/11/2019529 FAX #: [phone] Reason: ett EXAMS: CPT CODE: [id number] XR CHEST 1 V 70913 EXAM: Portable chest one view. Location code:J9 HISTORY: ET tube placement COMPARISON: 02/10/2019 COMMENT: Stable position of ET tube, NG tube, and right IJ catheter.. The lungs and pleural spaces are clear. Lungs are normally expanded. The aorta, pulmonary vasculature and mediastinum are within normal limits. Cardiac silhouette is enlarged and stable in size and contour. Visualized skeletal structures are unremarkable. IMPRESSION: No active disease in the chest. Lines and tubes as above. at 0542 Reported and signed by: Stevenson Manning M.D. CC: Gigi Gonzalez MD; Liliana Gao MD Technologist: JULITO Elmore Trnscrd Date/Time/By: 02/11/2019 (0542) : By: [id number] Orig Print D/T: S: 02/11/2019 (0505) PAGE 1 Signed Report [id number] 04:22:00 * Test Item Value Reference Range Comments GLUBED (test code=GLUBED) 166 mg/dL 74-106 Performed by certified band aid machine operator at [facility] COMPREHENSIVE METABOLIC [id number] 01:32:00* Test Item Value Reference Range Comments SODIUM (test code=NA) 138 mmol/L 136-145 POTASSIUM (test code=K) 4.0 mmol/L 3.5-5.1 CHLORIDE (test code=CL) 104.0 mmol/L 98-107 CARBON DIOXIDE (test code=CO2) 26.0 mmol/L 21-32 ANION GAP (test code=GAP) 12.0 10-20 GLUCOSE (test code=GLU) 162 mg/dL 74-106 BLOOD UREA NITROGEN (test code=BUN) 20 mg/dL 7-18 GLOMERULAR FILTRATION RATE (test code=GFR) 48 mL/min >=60 Estimated GFR by using Modified MDRD formula.Chronic kidney disease is defined as either kidney damageor GFR <60 mL/min/1.73 m2 for >3 months. CREATININE (test code=CREAT) 1.60 mg/dL 0.7-1.3 BUN/CREATININE RATIO (test code=BUN/CREA) 12.5 10-20 TOTAL PROTEIN (test code=PROT) 5.8 gram/dL 6.4-8.2 ALBUMIN (test code=ALB) 2.1 g/dL 3.4-5.0 GLOBULIN (test code=GLOB) 3.7 gram/dL 2.7-4.2 ALBUMIN/GLOBULIN RATIO (test code=A/G) 0.6 0.75-1.50 CALCIUM (test code=CA) 8.2 mg/dL 8.5-10.1 BILIRUBIN TOTAL (test code=BILT) 0.40 mg/dL 0.0-1.0 SGOT/AST (test code=AST) 27 IUnit/L 15-37 SGPT/ALT (test code=ALT) 27 IUnit/L 12-78 ALKALINE PHOSPHATASE TOTAL (test code=ALKP) 127 IUnit/L 45-117 Note change in reference range due to change in reagent. [id number] 01:32:00* Test Item Value Reference Range Comments MAGNESIUM (test code=MAG) 1.7 mg/dL 1.8-2.4 COMPREHENSIVE METABOLIC [id number] 01:25:00* Test Item Value Reference Range Comments SODIUM (test code=NA) 138 mmol/L 136-145 POTASSIUM (test code=K) 4.0 mmol/L 3.5-5.1 CHLORIDE (test code=CL) 104.0 mmol/L 98-107 CARBON DIOXIDE (test code=CO2) mmol/L 21-32 ANION GAP (test code=GAP) 10-20 GLUCOSE (test code=GLU) mg/dL 74-106 BLOOD UREA NITROGEN (test code=BUN) mg/dL 7-18 GLOMERULAR FILTRATION RATE (test code=GFR) mL/min >=60 CREATININE (test code=CREAT) mg/dL 0.7-1.3 BUN/CREATININE RATIO (test code=BUN/CREA) 10-20 TOTAL PROTEIN (test code=PROT) gram/dL 6.4-8.2 ALBUMIN (test code=ALB) g/dL 3.4-5.0 GLOBULIN (test code=GLOB) gram/dL 2.7-4.2 ALBUMIN/GLOBULIN RATIO (test code=A/G) 0.75-1.50 CALCIUM (test code=CA) mg/dL 8.5-10.1 BILIRUBIN TOTAL (test code=BILT) mg/dL 0.0-1.0 SGOT/AST (test code=AST) IUnit/L 15-37 SGPT/ALT (test code=ALT) IUnit/L 12-78 ALKALINE PHOSPHATASE TOTAL (test code=ALKP) IUnit/L 45-117 [id number] 01:25:00* Test Item Value Reference Range Comments MAGNESIUM (test code=MAG) mg/dL 1.8-2.4 [id number] 23:11:00* Test Item Value Reference Range Comments GLUBED (test code=GLUBED) 147 mg/dL 74-106 Performed by certified band aid machine operator at [facility] BASIC METABOLIC [id number] 23:05:00* Test Item Value Reference Range Comments SODIUM (test code=NA) 139 mmol/L 136-145 POTASSIUM (test code=K) 3.8 mmol/L 3.5-5.1 CHLORIDE (test code=CL) 105.0 mmol/L 98-107 CARBON DIOXIDE (test code=CO2) 25.0 mmol/L 21-32 ANION GAP (test code=GAP) 12.8 10-20 GLUCOSE (test code=GLU) 155 mg/dL 74-106 BLOOD UREA NITROGEN (test code=BUN) 25 mg/dL 7-18 RESULT VERIFIED BY REPEAT ANALYSIS GLOMERULAR FILTRATION RATE (test code=GFR) 42 mL/min >=60 Estimated GFR by using Modified MDRD formula.Chronic kidney disease is defined as either kidney damageor GFR <60 mL/min/1.73 m2 for >3 months. CREATININE (test code=CREAT) 1.80 mg/dL 0.7-1.3 BUN/CREATININE RATIO (test code=BUN/CREA) 13.9 10-20 CALCIUM (test code=CA) 8.1 mg/dL 8.5-10.1 [id number] 23:05:00* Test Item Value Reference Range Comments PHOSPHORUS (test code=PHOS) 2.6 mg/dL 2.5-4.9 [id number] 23:05:00* Test Item Value Reference Range Comments MAGNESIUM (test code=MAG) 1.8 mg/dL 1.8-2.4 CALCIUM [id number] 23:05:00* Test Item Value Reference Range Comments CALCIUM IONIZED (test code=KANIKA) 1.23 mmol/L 1.12-1.32 BASIC METABOLIC [id number] 22:41:00* Test Item Value Reference Range Comments SODIUM (test code=NA) 139 mmol/L 136-145 POTASSIUM (test code=K) 3.8 mmol/L 3.5-5.1 CHLORIDE (test code=CL) 105.0 mmol/L 98-107 CARBON DIOXIDE (test code=CO2) 25.0 mmol/L 21-32 ANION GAP (test code=GAP) 12.8 10-20 GLUCOSE (test code=GLU) 155 mg/dL 74-106 BLOOD UREA NITROGEN (test code=BUN) 25 mg/dL 7-18 RESULT VERIFIED BY REPEAT ANALYSIS GLOMERULAR FILTRATION RATE (test code=GFR) 42 mL/min >=60 Estimated GFR by using Modified MDRD formula.Chronic kidney disease is defined as either kidney damageor GFR <60 mL/min/1.73 m2 for >3 months. CREATININE (test code=CREAT) 1.80 mg/dL 0.7-1.3 BUN/CREATININE RATIO (test code=BUN/CREA) 13.9 10-20 CALCIUM (test code=CA) 8.1 mg/dL 8.5-10.1 [id number] 22:41:00* Test Item Value Reference Range Comments PHOSPHORUS (test code=PHOS) 2.6 mg/dL 2.5-4.9 [id number] 22:41:00* Test Item Value Reference Range Comments MAGNESIUM (test code=MAG) 1.8 mg/dL 1.8-2.4 CALCIUM [id number] 22:41:00* Test Item Value Reference Range Comments CALCIUM IONIZED (test code=KANIKA) mmol/L 1.12-1.32 BASIC METABOLIC [id number] 22:20:00* Test Item Value Reference Range Comments SODIUM (test code=NA) 139 mmol/L 136-145 POTASSIUM (test code=K) 3.8 mmol/L 3.5-5.1 CHLORIDE (test code=CL) 105.0 mmol/L 98-107 CARBON DIOXIDE (test code=CO2) mmol/L 21-32 ANION GAP (test code=GAP) 10-20 GLUCOSE (test code=GLU) mg/dL 74-106 BLOOD UREA NITROGEN (test code=BUN) mg/dL 7-18 GLOMERULAR FILTRATION RATE (test code=GFR) mL/min >=60 CREATININE (test code=CREAT) mg/dL 0.7-1.3 BUN/CREATININE RATIO (test code=BUN/CREA) 10-20 CALCIUM (test code=CA) mg/dL 8.5-10.1 [id number] 22:20:00* Test Item Value Reference Range Comments PHOSPHORUS (test code=PHOS) mg/dL 2.5-4.9 [id number] 22:20:00* Test Item Value Reference Range Comments MAGNESIUM (test code=MAG) mg/dL 1.8-2.4 CALCIUM [id number] 22:20:00* Test Item Value Reference Range Comments CALCIUM IONIZED (test code=KANIKA) mmol/L 1.12-1.32 [id number] 22:20:00* Test Item Value Reference Range Comments POTASSIUM (test code=K) 3.8 mmol/L 3.5-5.1 ARTERIAL BLOOD [id number] 21:13:00* Test Item Value Reference Range Comments ARTERIAL BLOOD GAS PH (test code=PHA) 7.44 7.35-7.45 ARTERIAL BLOOD GAS PCO2 (test code=PCO2A) 36.7 mm Hg 35-45 ARTERIAL BLOOD GAS PO2 (test code=PO2A) 114.9 mmHg 80-100 BICARBONATE TOTAL HCO3 (test code=HCO3) 24.6 mmol/L 23.0-27.0 BASE EXCESS (test code=RANJAN) 0.6 mmol/L -3.0-5.0 ABG O2 SATURATION (test code=SATA) 97.5 % 90.0-98.0 ABG TYPE (test code=TYPEA) Arterial FIO2 (test code=FIO2A) 40.0 ABG VENT RESP RATE (test code=RRA) 14.0 per min ABG TIDAL VOLUME (test code=TVA) 500.0 mL ABG PEEP (test code=PEEPA) 9.0 cmH2O ABG PRESSURE SUPPORT (test code=PSABG) 10 cmH2O ABG SITE (test code=SITEA) ARTERIAL LINE HEMATOCRIT (test code=HCT/ABG) 27 % 42-52 TOTAL HGB (test code=THB) 9.2 gram/dL 13.0-17.5 HGB O2 SAT (test code=HBOSAT) 96.6 % 94.00-98.00 CARBOXYHEMOGLOBIN (test code=HOHGBT) 0.3 %totalHg 0.5-1.5 Results called to and read back by penny 21:13 - 02/10/2019; by marcelo METHEMOGLOBIN (test code=METHGB) 0.6 % 0.0-1.50 O2 CONTENT (test code=O2CT) 12.7 % vol 18.0-22.0 [id number] 20:06:00* Test Item Value Reference Range Comments GLUBED (test code=GLUBED) 131 mg/dL 74-106 Performed by certified band aid machine operator at [facility] COMPREHENSIVE METABOLIC [id number] 20:03:00* Test Item Value Reference Range Comments SODIUM (test code=NA) 138 mmol/L 136-145 POTASSIUM (test code=K) 4.5 mmol/L 3.5-5.1 RESULT VERIFIED BY REPEAT ANALYSIS CHLORIDE (test code=CL) 108.0 mmol/L 98-107 CARBON DIOXIDE (test code=CO2) 22.0 mmol/L 21-32 Previously reported result: 22.0 mmol/LEdited by: KAYA on 19:2001 ANION GAP (test code=GAP) 12.5 10-20 GLUCOSE (test code=GLU) 142 mg/dL 74-106 BLOOD UREA NITROGEN (test code=BUN) 32 mg/dL 7-18 GLOMERULAR FILTRATION RATE (test code=GFR) 33 mL/min >=60 Estimated GFR by using Modified MDRD formula.Chronic kidney disease is defined as either kidney damageor GFR <60 mL/min/1.73 m2 for >3 months. CREATININE (test code=CREAT) 2.20 mg/dL 0.7-1.3 BUN/CREATININE RATIO (test code=BUN/CREA) 14.5 10-20 TOTAL PROTEIN (test code=PROT) 5.6 gram/dL 6.4-8.2 ALBUMIN (test code=ALB) 2.1 g/dL 3.4-5.0 GLOBULIN (test code=GLOB) 3.5 gram/dL 2.7-4.2 ALBUMIN/GLOBULIN RATIO (test code=A/G) 0.6 0.75-1.50 CALCIUM (test code=CA) 7.6 mg/dL 8.5-10.1 BILIRUBIN TOTAL (test code=BILT) 0.30 mg/dL 0.0-1.0 SGOT/AST (test code=AST) 30 IUnit/L 15-37 SGPT/ALT (test code=ALT) 27 IUnit/L 12-78 ALKALINE PHOSPHATASE TOTAL (test code=ALKP) 118 IUnit/L 45-117 Note change in reference range due to change in reagent. [id number] 20:03:00* Test Item Value Reference Range Comments MAGNESIUM (test code=MAG) 1.6 mg/dL 1.8-2.4 COMPREHENSIVE METABOLIC [id number] 18:51:00* Test Item Value Reference Range Comments SODIUM (test code=NA) 138 mmol/L 136-145 POTASSIUM (test code=K) 4.5 mmol/L 3.5-5.1 RESULT VERIFIED BY REPEAT ANALYSIS CHLORIDE (test code=CL) 108.0 mmol/L 98-107 CARBON DIOXIDE (test code=CO2) mmol/L 21-32 ANION GAP (test code=GAP) 10-20 GLUCOSE (test code=GLU) mg/dL 74-106 BLOOD UREA NITROGEN (test code=BUN) mg/dL 7-18 GLOMERULAR FILTRATION RATE (test code=GFR) mL/min >=60 CREATININE (test code=CREAT) mg/dL 0.7-1.3 BUN/CREATININE RATIO (test code=BUN/CREA) 10-20 TOTAL PROTEIN (test code=PROT) gram/dL 6.4-8.2 ALBUMIN (test code=ALB) g/dL 3.4-5.0 GLOBULIN (test code=GLOB) gram/dL 2.7-4.2 ALBUMIN/GLOBULIN RATIO (test code=A/G) 0.75-1.50 CALCIUM (test code=CA) mg/dL 8.5-10.1 BILIRUBIN TOTAL (test code=BILT) mg/dL 0.0-1.0 SGOT/AST (test code=AST) IUnit/L 15-37 SGPT/ALT (test code=ALT) IUnit/L 12-78 ALKALINE PHOSPHATASE TOTAL (test code=ALKP) IUnit/L 45-117 [id number] 18:51:00* Test Item Value Reference Range Comments MAGNESIUM (test code=MAG) mg/dL 1.8-2.4 COMPREHENSIVE METABOLIC [id number] 18:51:00* Test Item Value Reference Range Comments SODIUM (test code=NA) 138 mmol/L 136-145 POTASSIUM (test code=K) 4.5 mmol/L 3.5-5.1 RESULT VERIFIED BY REPEAT ANALYSIS CHLORIDE (test code=CL) 108.0 mmol/L 98-107 CARBON DIOXIDE (test code=CO2) 22.0 mmol/L 21-32 ANION GAP (test code=GAP) 10-20 GLUCOSE (test code=GLU) 142 mg/dL 74-106 BLOOD UREA NITROGEN (test code=BUN) 32 mg/dL 7-18 GLOMERULAR FILTRATION RATE (test code=GFR) 33 mL/min >=60 Estimated GFR by using Modified MDRD formula.Chronic kidney disease is defined as either kidney damageor GFR <60 mL/min/1.73 m2 for >3 months. CREATININE (test code=CREAT) 2.20 mg/dL 0.7-1.3 BUN/CREATININE RATIO (test code=BUN/CREA) 14.5 10-20 TOTAL PROTEIN (test code=PROT) 5.6 gram/dL 6.4-8.2 ALBUMIN (test code=ALB) 2.1 g/dL 3.4-5.0 GLOBULIN (test code=GLOB) 3.5 gram/dL 2.7-4.2 ALBUMIN/GLOBULIN RATIO (test code=A/G) 0.6 0.75-1.50 CALCIUM (test code=CA) 7.6 mg/dL 8.5-10.1 BILIRUBIN TOTAL (test code=BILT) 0.30 mg/dL 0.0-1.0 SGOT/AST (test code=AST) 30 IUnit/L 15-37 SGPT/ALT (test code=ALT) 27 IUnit/L 12-78 ALKALINE PHOSPHATASE TOTAL (test code=ALKP) 118 IUnit/L 45-117 Note change in reference range due to change in reagent. [id number] 18:51:00* Test Item Value Reference Range Comments MAGNESIUM (test code=MAG) 1.6 mg/dL 1.8-2.4 [id number] 18:17:00* Test Item Value Reference Range Comments PHOSPHORUS (test code=PHOS) 3.2 mg/dL 2.5-4.9 CALCIUM [id number] 18:17:00* Test Item Value Reference Range Comments CALCIUM IONIZED (test code=KANIKA) 1.22 mmol/L 1.12-1.32 [id number] 17:50:00* Test Item Value Reference Range Comments PHOSPHORUS (test code=PHOS) 3.2 mg/dL 2.5-4.9 CALCIUM [id number] 17:50:00* Test Item Value Reference Range Comments CALCIUM IONIZED (test code=KANIKA) mmol/L 1.12-1.32 ARTERIAL BLOOD [id number] 17:11:00* Test Item Value Reference Range Comments ARTERIAL BLOOD GAS PH (test code=PHA) 7.39 7.35-7.45 ARTERIAL BLOOD GAS PCO2 (test code=PCO2A) 33.5 mm Hg 35-45 ARTERIAL BLOOD GAS PO2 (test code=PO2A) 111.6 mmHg 80-100 BICARBONATE TOTAL HCO3 (test code=HCO3) 19.7 mmol/L 23.0-27.0 BASE EXCESS (test code=RANJAN) -4.5 mmol/L -3.0-5.0 Results called to and read back by Bibi 17: - 02/10/2019; by Lang Spencer ABG O2 SATURATION (test code=SATA) 97.4 % 90.0-98.0 ABG TYPE (test code=TYPEA) Arterial FIO2 (test code=FIO2A) 40.0 ABG VENT MODE (test code=MODEA) SIMV ABG VENT RESP RATE (test code=RRA) 14.0 per min ABG TIDAL VOLUME (test code=TVA) 500.0 mL ABG PEEP (test code=PEEPA) 9.0 cmH2O ABG PRESSURE SUPPORT (test code=PSABG) 10 cmH2O ABG SITE (test code=SITEA) ARTERIAL LINE HEMATOCRIT (test code=HCT/ABG) 34 % 42-52 TOTAL HGB (test code=THB) 11.7 gram/dL 13.0-17.5 HGB O2 SAT (test code=HBOSAT) 96.8 % 94.00-98.00 CARBOXYHEMOGLOBIN (test code=HOHGBT) 0.3 %totalHg 0.5-1.5 Results called to and read back by Bibi :02/10/2019; by Lang Spencer METHEMOGLOBIN (test code=METHGB) 0.3 % 0.0-1.50 O2 CONTENT (test code=O2CT) 16.1 % vol 18.0-22.0 ARTERIAL BLOOD [id number] 16:37:00* Test Item Value Reference Range Comments ARTERIAL BLOOD GAS PH (test code=PHA) 7.28 7.35-7.45 ARTERIAL BLOOD GAS PCO2 (test code=PCO2A) 42.1 mm Hg 35-45 ARTERIAL BLOOD GAS PO2 (test code=PO2A) 106.5 mmHg 80-100 BICARBONATE TOTAL HCO3 (test code=HCO3) 19.3 mmol/L 23.0-27.0 BASE EXCESS (test code=RANJAN) -7.0 mmol/L -3.0-5.0 Results called to and read back by Bibi 12:20 - 02/10/2019; by Jennifer ABG O2 SATURATION (test code=SATA) 96.5 % 90.0-98.0 ABG TYPE (test code=TYPEA) Arterial FIO2 (test code=FIO2A) 60.0 ABG VENT MODE (test code=MODEA) Assist Control ABG VENT RESP RATE (test code=RRA) 14.0 per min ABG TIDAL VOLUME (test code=TVA) 500.0 mL ABG PEEP (test code=PEEPA) 9.0 cmH2O ABG PRESSURE SUPPORT (test code=PSABG) 10 cmH2O ABG SITE (test code=SITEA) ARTERIAL LINE HEMATOCRIT (test code=HCT/ABG) 31 % 42-52 TOTAL HGB (test code=THB) 10.6 gram/dL 13.0-17.5 HGB O2 SAT (test code=HBOSAT) 95.9 % 94.00-98.00 CARBOXYHEMOGLOBIN (test code=HOHGBT) 0.2 %totalHg 0.5-1.5 Results called to and read back by Bibi : - 02/10/2019; by Jennifer METHEMOGLOBIN (test code=METHGB) 0.4 % 0.0-1.50 O2 CONTENT (test code=O2CT) 14.5 % vol 18.0-22.0 ARTERIAL BLOOD [id number] 16:29:00* Test Item Value Reference Range Comments ARTERIAL BLOOD GAS PH (test code=PHA) 7.20 7.35-7.45 Results called to and read back by Bibi 02/10/2019; by Jennifer ARTERIAL BLOOD GAS PCO2 (test code=PCO2A) 39.7 mm Hg 35-45 ARTERIAL BLOOD GAS PO2 (test code=PO2A) 73.0 mmHg 80-100 BICARBONATE TOTAL HCO3 (test code=HCO3) 15.2 mmol/L 23.0-27.0 BASE EXCESS (test code=RANJAN) -12.2 mmol/L -3.0-5.0 Results called to and read back by Bibi 02/10/2019; by Jennifer ABG O2 SATURATION (test code=SATA) 90.6 % 90.0-98.0 ABG TYPE (test code=TYPEA) Arterial FIO2 (test code=FIO2A) 60.0 ABG VENT MODE (test code=MODEA) Assist Control ABG VENT RESP RATE (test code=RRA) 18.0 per min ABG TIDAL VOLUME (test code=TVA) 500.0 mL ABG PEEP (test code=PEEPA) 7.0 cmH2O ABG SITE (test code=SITEA) Lt RADIAL ARTERY MODIFIED ALLENS (test code=MODALL) Yes CHECK PERFORMED HEMATOCRIT (test code=HCT/ABG) 35 % 42-52 TOTAL HGB (test code=THB) 12.0 gram/dL 13.0-17.5 HGB O2 SAT (test code=HBOSAT) 90.1 % 94.00-98.00 CARBOXYHEMOGLOBIN (test code=HOHGBT) 0.3 %totalHg 0.5-1.5 Results called to and read back by Bibi 09:25 - 02/10/2019; by Jennifer METHEMOGLOBIN (test code=METHGB) 0.2 % 0.0-1.50 O2 CONTENT (test code=O2CT) 15.3 % vol 18.0-22.0 COMPREHENSIVE METABOLIC [id number] 13:25:00* Test Item Value Reference Range Comments SODIUM (test code=NA) 139 mmol/L 136-145 POTASSIUM (test code=K) 6.1 mmol/L 3.5-5.1 Results called to [id number] by JENA 02/10/19 1323Critical results verified and read back by Nurse? Y CHLORIDE (test code=CL) 114.0 mmol/L 98-107 CARBON DIOXIDE (test code=CO2) 19.0 mmol/L 21-32 ANION GAP (test code=GAP) 12.1 10-20 GLUCOSE (test code=GLU) 128 mg/dL 74-106 BLOOD UREA NITROGEN (test code=BUN) 39 mg/dL 7-18 GLOMERULAR FILTRATION RATE (test code=GFR) 23 mL/min >=60 Estimated GFR by using Modified MDRD formula.Chronic kidney disease is defined as either kidney damageor GFR <60 mL/min/1.73 m2 for >3 months. CREATININE (test code=CREAT) 3.00 mg/dL 0.7-1.3 BUN/CREATININE RATIO (test code=BUN/CREA) 13.0 10-20 TOTAL PROTEIN (test code=PROT) 5.4 gram/dL 6.4-8.2 ALBUMIN (test code=ALB) 2.3 g/dL 3.4-5.0 GLOBULIN (test code=GLOB) 3.1 gram/dL 2.7-4.2 ALBUMIN/GLOBULIN RATIO (test code=A/G) 0.7 0.75-1.50 CALCIUM (test code=CA) 7.8 mg/dL 8.5-10.1 BILIRUBIN TOTAL (test code=BILT) 0.30 mg/dL 0.0-1.0 SGOT/AST (test code=AST) 35 IUnit/L 15-37 SGPT/ALT (test code=ALT) 30 IUnit/L 12-78 ALKALINE PHOSPHATASE TOTAL (test code=ALKP) 130 IUnit/L 45-117 Note change in reference range due to change in reagent. HEPATIC FUNCTION [id number] 13:25:00* Test Item Value Reference Range Comments BILIRUBIN DIRECT (test code=BILD) 0.11 mg/dL 0.0-0.20 [id number] 13:25:00* Test Item Value Reference Range Comments TROPONIN-I (test code=TROPI) 2.150 ng/mL 0-0.045 CALCIUM [id number] 13:18:00* Test Item Value Reference Range Comments CALCIUM IONIZED (test code=KANIKA) 1.25 mmol/L 1.12-1.32 [id number] 13:15:00* Test Item Value Reference Range Comments AMMONIA (test code=AMM) 24 umol/L 11-32 [id number] 13:14:00* Test Item Value Reference Range Comments GLYCOSYLATED HEMOGLOBIN (HA1C) (test code=GLYHGB) 7.3 % HbA1 4.8-6.0 ESTIMATED AVERAGE GLUCOSE (test code=EAG) 163 MG/DL [id number] 12:24:00* Test Item Value Reference Range Comments GLUBED (test code=GLUBED) 138 mg/dL 74-106 Performed by certified band aid machine operator at [facility] - XR CHEST 1 [id number] 12:17:00 FAX: Gigi Hanley MD [employer]: [address] St: ADM FAX: Liliana Gao MD [phone] Name: PHILIP HALEY [facility] : 1980 Age/S: 38/M [address] Unit #: [id number] Loc: [facility] [place] [address] Phys: Liliana Gao MD Acct: [id number] Dis Date: Status: ADM IN PHONE #: [phone] Exam Date: 02/10/2019 1153 FAX #: [phone] Reason: dialysis catheter placement EXAMS: CPT CODE: [id number] XR CHEST 1 V [id number] TECHNIQUE - XR CHEST 1 V . COMPARISON: Chest x-ray 02/10/2019 at 0649 hours HISTORY: 38 years Male dialysis catheter placement FINDINGS: Right IJ dialysis catheter in place. No pneumothorax. ET tube in place. NG tube extends to the stomach. Scattered atelectasis bilaterally. No congestion. Cardiac silhouette is enlarged. Lateral right lower lung field is not imaged. Overall since earlier study of 02/10/2019 at 0657 hours right-sided dialysis catheter is new. Decreased congestion. No pneumothorax. Right lower lung field is not imaged. IMPRESSION: Overall since earlier study of 02/10/2019 at 0657 hours right-sided dialysis catheter is new. Decreased congestion. No pneumothorax. Right lower lung field is not imaged. at 1217 Reported and signed by: Tomasz Kelley M.D. CC: Gigi Gonzalez MD; Liliana Gao MD Technologist: Anna Church(R) Trnscrd Date/Time/By: 02/10/2019 (1692) : By: Julián Colorado Print D/T: S: 02/10/2019 (3208) PAGE 1 Signed Report COMPREHENSIVE METABOLIC [id number] 08:41:00* Test Item Value Reference Range Comments SODIUM (test code=NA) 136 mmol/L 136-145 POTASSIUM (test code=K) 6.1 mmol/L 3.5-5.1 Results called to [id number] by JENA 02/10/19 0840Critical results verified and read back by Nurse? Y CHLORIDE (test code=CL) 112.0 mmol/L 98-107 CARBON DIOXIDE (test code=CO2) 18.0 mmol/L 21-32 ANION GAP (test code=GAP) 12.1 10-20 GLUCOSE (test code=GLU) 141 mg/dL 74-106 BLOOD UREA NITROGEN (test code=BUN) 39 mg/dL 7-18 GLOMERULAR FILTRATION RATE (test code=GFR) 20 mL/min >=60 Estimated GFR by using Modified MDRD formula.Chronic kidney disease is defined as either kidney damageor GFR <60 mL/min/1.73 m2 for >3 months. CREATININE (test code=CREAT) 3.40 mg/dL 0.7-1.3 BUN/CREATININE RATIO (test code=BUN/CREA) 11.5 10-20 TOTAL PROTEIN (test code=PROT) 6.9 gram/dL 6.4-8.2 ALBUMIN (test code=ALB) 2.7 g/dL 3.4-5.0 GLOBULIN (test code=GLOB) 4.2 gram/dL 2.7-4.2 ALBUMIN/GLOBULIN RATIO (test code=A/G) 0.6 0.75-1.50 CALCIUM (test code=CA) 7.9 mg/dL 8.5-10.1 BILIRUBIN TOTAL (test code=BILT) 0.40 mg/dL 0.0-1.0 SGOT/AST (test code=AST) 50 IUnit/L 15-37 SGPT/ALT (test code=ALT) 36 IUnit/L 12-78 ALKALINE PHOSPHATASE TOTAL (test code=ALKP) 147 IUnit/L 45-117 Note change in reference range due to change in reagent. [id number] 08:41:00* Test Item Value Reference Range Comments PHOSPHORUS (test code=PHOS) 3.7 mg/dL 2.5-4.9 [id number] 08:41:00* Test Item Value Reference Range Comments MAGNESIUM (test code=MAG) 1.8 mg/dL 1.8-2.4 [id number] 08:41:00* Test Item Value Reference Range Comments TROPONIN-I (test code=TROPI) 0.747 ng/mL 0-0.045 Results called to [id number] by JENA 02/10/19 0841Critical results verified and read back by Nurse? Y LACTIC [id number] 08:34:00* Test Item Value Reference Range Comments LACTIC ACID (test code=LACT) 0.7 mmol/L 0.4-1.9 CBC W/AUTO [id number] 07:49:00* Test Item Value Reference Range Comments WHITE BLOOD CELL (test code=WBC) 12.5 K/mm3 4.5-12.5 RED BLOOD CELL (test code=RBC) 3.86 mill/mm3 4.0-5.8 HEMOGLOBIN (test code=HGB) 10.8 gram/dL 13.0-17.5 HEMATOCRIT (test code=HCT) 33.7 % 42.0-52.0 MEAN CELL VOLUME (test code=MCV) 87.3 fL 80-98 MEAN CELL HGB (test code=MCH) 28.0 picogram 27.0-33.0 MEAN CELL HGB CONCETRATION (test code=MCHC) 32.0 gram/dL 33.0-36.0 RED CELL DISTRIBUTION WIDTH (test code=RDW) 13.2 % 11.6-16.2 RED CELL DISTRIBUTION WIDTH SD (test code=RDW-SD) 41.8 fL 37.0-51.0 PLATELET COUNT (test code=PLT) 247 K/mm3 150-450 RESULT VERIFIED BY REPEAT ANALYSIS MEAN PLATELET VOLUME (test code=MPV) 10.3 fL 6.7-11.0 NEUTROPHIL % (test code=NT%) 84.3 % 39.0-69.0 IMMATURE GRANULOCYTE % (test code=IG%) 1.0 % 0.0-5.0 LYMPHOCYTE % (test code=LY%) 5.6 % 25.0-55.0 MONOCYTE % (test code=MO%) 8.9 % 0.0-10.0 EOSINOPHIL % (test code=EO%) 0.1 % 0.0-5.0 BASOPHIL % (test code=BA%) 0.1 % 0.0-1.0 NUCLEATED RBC % (test code=NRBC%) 0.0 % 0-0 NEUTROPHIL # (test code=NT#) 10.58 K/mm3 1.8-7.7 IMMATURE GRANULOCYTE # (test code=IG#) 0.13 x10 3/uL 0-0.03 LYMPHOCYTE # (test code=LY#) 0.70 K/mm3 1.0-5.0 MONOCYTE # (test code=MO#) 1.11 K/mm3 0-0.8 EOSINOPHIL # (test code=EO#) 0.01 K/mm3 0.0-0.5 BASOPHIL # (test code=BA#) 0.01 K/mm3 0.0-0.2 NUCLEATED RBC # (test code=NRBC#) 0.00 K/mm3 0.0-0.1 MANUAL DIFF REQUIRED (test code=MDIFF) NO [id number] 07:39:00* Test Item Value Reference Range Comments GLUBED (test code=GLUBED) 154 mg/dL 74-106 Performed by certified band aid machine operator at [facility] [id number] 07:39:00* Test Item Value Reference Range Comments GLUBED (test code=GLUBED) 238 mg/dL 74-106 Performed by certified band aid machine operator at [facility] - XR CHEST 1 [id number] 07:31:00 FAX: Gigi Hanley MD [employer]: [address]: ADM FAX: Tomy Ny [employer] [phone] Name: PHILIP HALEY [facility] : 1980 Age/S: 38/M [address] [facility] Unit #: [id number] Loc: [address] [place] [address] Phys: Tomy Urrutia [employer] Acct: [id number] Dis Date: Status: ADM IN PHONE #: [phone] Exam Date: 02/10/2019 0657 FAX #: [phone] Reason: CENTRAL LINE PLACEMENT EXAMS: CPT CODE: [id number] XR CHEST 1 V 93443 EXAM: Chest x-ray, one view; INFORMATION status post cardiac arrest; line placement; IMPRESSION: 1. The tip of a right IJ central line is positioned in the SVC/right atrial junction. 2. Otherwise, no change compared with the earlier study; no pneumothorax. Basilar atelectatic changes; moderate cardiomegaly. 3. Well- positioned endotracheal and nasogastric tubes. Electronically Signed by Sierra Irving on 0 02/10/2019 at 0731 Reported and signed by: Bjorn Irving M.D. CC: Gigi Gonzalez MD; Tomy Urrutia NP Technologist: Anna Church(Lisy) Trnscrd Date/Time/By: 02/10/2019 (0731) : By: AnibalW Orig Print D/T: S: 02/10/2019 (0734) PAGE 1 Signed Report DRUGS OF ABUSE SCREEN 2019-02-10 04:45:00* Test Item Value Reference Range Comments UA PH DIPSTICK (test code=RAMONA) 5.5 5.0-8.0 URN COCAINE (test code=COCAURN) NEGATIVE <300 ng/mL URN CANNABINOIDS (test code=CANNABURN) NEGATIVE <50 ng/mL URN AMPHETAMINE (test code=AMPHETURN) NEGATIVE <1000 ng/mL URN BARBITURATE (test code=BARBITURN) NEGATIVE <200 ng/mL URN BENZODIAZEPINE (test code=BENZOURN) NEGATIVE <200 ng/mL URN OPIATES (test code=OPIATURN) NEGATIVE <300 ng/mL URN PHENCYCLIDINE (PCP) (test code=PHENCURN) NEGATIVE <25 ng/mL URN METHADONE (test code=METHAURN) NEGATIVE <300 ng/mL DRUGS OF ABUSE SCREEN [id number] 04:30:00* Test Item Value Reference Range Comments UA PH DIPSTICK (test code=RAMONA) 5.5 5.0-8.0 URN COCAINE (test code=COCAURN) <300 ng/mL URN CANNABINOIDS (test code=CANNABURN) <50 ng/mL URN AMPHETAMINE (test code=AMPHETURN) <1000 ng/mL URN BARBITURATE (test code=BARBITURN) <200 ng/mL URN BENZODIAZEPINE (test code=BENZOURN) <200 ng/mL URN OPIATES (test code=OPIATURN) <300 ng/mL URN PHENCYCLIDINE (PCP) (test code=PHENCURN) <25 ng/mL URN METHADONE (test code=METHAURN) <300 ng/mL URINALYSIS [id number] 04:30:00* Test Item Value Reference Range Comments UA COLOR (test code=COLU) COLORLESS YELLOW UA APPEARANCE (test code=APPU) CLEAR CLEAR UA GLUCOSE DIPSTICK (test code=DGLUU) NEGATIVE mg/dL NEGATIVE UA BILIRUBIN DIPSTICK (test code=BILU) NEGATIVE mg/dL NEGATIVE UA KETONE DIPSTICK (test code=KETU) NEGATIVE mg/dL NEGATIVE UA SPECIFIC GRAVITY (test code=SGU) 1.006 1.001-1.035 UA BLOOD DIPSTICK (test code=ROBERT) Negative mg/dL NEGATIVE UA PH DIPSTICK (test code=RAMONA) 5.5 5.0-8.0 UA PROTEIN DIPSTICK (test code=PROU) 200 (2+) mg/dL NEGATIVE UA UROBILINIOGEN DIPSTICK (test code=URO) Normal mg/dL NEGATIVE UA NITRITE DIPSTICK (test code=KEDAR) NEGATIVE NEGATIVE UA LEUKOCYTE ESTERASE W REFLEX (test code=LEUUR) NEGATIVE Lela/uL NEGATIVE UA WBC (test code=WBCU) NONE SEEN per HPF 0-5 UA RBC (test code=RBCU) NONE SEEN per HPF 0-5 UA EPITHELIAL CELLS (test code=EPIU) None seen per HPF Few UA BACTERIA (test code=BACU) NONE SEEN per HPF NONE URINALYSIS [id number] 04:29:00* Test Item Value Reference Range Comments UA COLOR (test code=COLU) COLORLESS YELLOW UA APPEARANCE (test code=APPU) CLEAR CLEAR UA GLUCOSE DIPSTICK (test code=DGLUU) NEGATIVE mg/dL NEGATIVE UA BILIRUBIN DIPSTICK (test code=BILU) NEGATIVE mg/dL NEGATIVE UA KETONE DIPSTICK (test code=KETU) NEGATIVE mg/dL NEGATIVE UA SPECIFIC GRAVITY (test code=SGU) 1.006 1.001-1.035 UA BLOOD DIPSTICK (test code=ROBERT) Negative mg/dL NEGATIVE UA PH DIPSTICK (test code=RAMONA) 5.5 5.0-8.0 UA PROTEIN DIPSTICK (test code=PROU) 200 (2+) mg/dL NEGATIVE UA UROBILINIOGEN DIPSTICK (test code=URO) Normal mg/dL NEGATIVE UA NITRITE DIPSTICK (test code=KEDAR) NEGATIVE NEGATIVE UA LEUKOCYTE ESTERASE W REFLEX (test code=LEUUR) NEGATIVE Lela/uL NEGATIVE UA WBC (test code=WBCU) per HPF 0-5 UA RBC (test code=RBCU) per HPF 0-5 UA EPITHELIAL CELLS (test code=EPIU) per HPF Few UA BACTERIA (test code=BACU) per HPF NONE URINALYSIS [id number] 04:29:00* Test Item Value Reference Range Comments UA COLOR (test code=COLU) COLORLESS YELLOW UA APPEARANCE (test code=APPU) CLEAR CLEAR UA GLUCOSE DIPSTICK (test code=DGLUU) NEGATIVE mg/dL NEGATIVE UA BILIRUBIN DIPSTICK (test code=BILU) NEGATIVE mg/dL NEGATIVE UA KETONE DIPSTICK (test code=KETU) NEGATIVE mg/dL NEGATIVE UA SPECIFIC GRAVITY (test code=SGU) 1.006 1.001-1.035 UA BLOOD DIPSTICK (test code=ROBERT) Negative mg/dL NEGATIVE UA PH DIPSTICK (test code=RAMONA) 5.5 5.0-8.0 UA PROTEIN DIPSTICK (test code=PROU) 200 (2+) mg/dL NEGATIVE UA UROBILINIOGEN DIPSTICK (test code=URO) Normal mg/dL NEGATIVE UA NITRITE DIPSTICK (test code=KEDAR) NEGATIVE NEGATIVE UA LEUKOCYTE ESTERASE W REFLEX (test code=LEUUR) NEGATIVE Lela/uL NEGATIVE UA WBC (test code=WBCU) per HPF 0-5 UA RBC (test code=RBCU) per HPF 0-5 UA EPITHELIAL CELLS (test code=EPIU) per HPF Few UA BACTERIA (test code=BACU) per HPF NONE CBC W/MANUAL [id number] 03:53:00* Test Item Value Reference Range Comments WHITE BLOOD CELL (test code=WBC) 28.1 K/mm3 4.5-12.5 RED BLOOD CELL (test code=RBC) 4.03 mill/mm3 4.0-5.8 HEMOGLOBIN (test code=HGB) 11.3 gram/dL 13.0-17.5 HEMATOCRIT (test code=HCT) 35.3 % 42.0-52.0 MEAN CELL VOLUME (test code=MCV) 87.6 fL 80-98 MEAN CELL HGB (test code=MCH) 28.0 picogram 27.0-33.0 MEAN CELL HGB CONCETRATION (test code=MCHC) 32.0 gram/dL 33.0-36.0 RED CELL DISTRIBUTION WIDTH (test code=RDW) 13.1 % 11.6-16.2 RED CELL DISTRIBUTION WIDTH SD (test code=RDW-SD) 41.4 fL 37.0-51.0 PLATELET COUNT (test code=PLT) 310 K/mm3 150-450 MEAN PLATELET VOLUME (test code=MPV) 10.3 fL 6.7-11.0 IMMATURE GRANULOCYTE % (test code=IG%) 4.2 % 0.0-5.0 NUCLEATED RBC % (test code=NRBC%) 0.0 % 0-0 NEUTROPHIL # (test code=NT#) 17.70 K/mm3 1.8-7.7 IMMATURE GRANULOCYTE # (test code=IG#) 1.17 x10 3/uL 0-0.03 LYMPHOCYTE # (test code=LY#) 7.28 K/mm3 1.0-5.0 MONOCYTE # (test code=MO#) 1.72 K/mm3 0-0.8 EOSINOPHIL # (test code=EO#) 0.17 K/mm3 0.0-0.5 BASOPHIL # (test code=BA#) 0.08 K/mm3 0.0-0.2 NUCLEATED RBC # (test code=NRBC#) 0.00 K/mm3 0.0-0.1 MANUAL DIFF REQUIRED (test code=MDIFF) YES STAIN ACCEPTABILITY (test code=STN ACCEPTABLE) STAIN ACCEPTABLE TOTAL CELLS COUNTED (test code=TCC) 115 #CELLS SEGMENTED NEUTROPHILS (test code=SEG) 62.9 % 39-69 LYMPHOCYTE (test code=LYMPH) 25.9 % 25-55 MONOCYTE (test code=MON) 6.1 % 0-10 EOSINOPHIL (test code=EOS) 0.6 % 0.0-5.0 BASOPHIL (test code=BASO) 0.3 % 0-1.0 PLATELET ESTIMATE (test code=PLTEST) ADEQUATE PLATELET MORPHOLOGY (test code=PLTMORPH) GIANT PLATELETS SEEN CBC W/MANUAL [id number] 03:47:00* Test Item Value Reference Range Comments WHITE BLOOD CELL (test code=WBC) 28.1 K/mm3 4.5-12.5 RED BLOOD CELL (test code=RBC) 4.03 mill/mm3 4.0-5.8 HEMOGLOBIN (test code=HGB) 11.3 gram/dL 13.0-17.5 HEMATOCRIT (test code=HCT) 35.3 % 42.0-52.0 MEAN CELL VOLUME (test code=MCV) 87.6 fL 80-98 MEAN CELL HGB (test code=MCH) 28.0 picogram 27.0-33.0 MEAN CELL HGB CONCETRATION (test code=MCHC) 32.0 gram/dL 33.0-36.0 RED CELL DISTRIBUTION WIDTH (test code=RDW) 13.1 % 11.6-16.2 RED CELL DISTRIBUTION WIDTH SD (test code=RDW-SD) 41.4 fL 37.0-51.0 PLATELET COUNT (test code=PLT) 310 K/mm3 150-450 MEAN PLATELET VOLUME (test code=MPV) 10.3 fL 6.7-11.0 IMMATURE GRANULOCYTE % (test code=IG%) 4.2 % 0.0-5.0 NUCLEATED RBC % (test code=NRBC%) 0.0 % 0-0 NEUTROPHIL # (test code=NT#) 17.70 K/mm3 1.8-7.7 IMMATURE GRANULOCYTE # (test code=IG#) 1.17 x10 3/uL 0-0.03 LYMPHOCYTE # (test code=LY#) 7.28 K/mm3 1.0-5.0 MONOCYTE # (test code=MO#) 1.72 K/mm3 0-0.8 EOSINOPHIL # (test code=EO#) 0.17 K/mm3 0.0-0.5 BASOPHIL # (test code=BA#) 0.08 K/mm3 0.0-0.2 NUCLEATED RBC # (test code=NRBC#) 0.00 K/mm3 0.0-0.1 MANUAL DIFF REQUIRED (test code=MDIFF) YES STAIN ACCEPTABILITY (test code=STN ACCEPTABLE) STAIN ACCEPTABLE TOTAL CELLS COUNTED (test code=TCC) 115 #CELLS SEGMENTED NEUTROPHILS (test code=SEG) % 39-69 LYMPHOCYTE (test code=LYMPH) % 25-55 MONOCYTE (test code=MON) % 0-10 PLATELET ESTIMATE (test code=PLTEST) ADEQUATE PLATELET MORPHOLOGY (test code=PLTMORPH) GIANT PLATELETS SEEN ARTERIAL BLOOD [id number] 03:45:00* Test Item Value Reference Range Comments ARTERIAL BLOOD GAS PH (test code=PHA) 7.25 7.35-7.45 ARTERIAL BLOOD GAS PCO2 (test code=PCO2A) 32.7 mm Hg 35-45 ARTERIAL BLOOD GAS PO2 (test code=PO2A) 109.7 mmHg 80-100 BICARBONATE TOTAL HCO3 (test code=HCO3) 14.1 mmol/L 23.0-27.0 BASE EXCESS (test code=RANJAN) -12.0 mmol/L -3.0-5.0 Results called to and read back by [employer] 02/10/2019; by Timbo Sandhu, [employer] ABG O2 SATURATION (test code=SATA) 96.9 % 90.0-98.0 ABG TYPE (test code=TYPEA) Arterial FIO2 (test code=FIO2A) 75.0 ABG L/M (test code=L/M) 50.00 L/MIN ABG VENT MODE (test code=MODEA) SIMV ABG VENT RESP RATE (test code=RRA) 14.0 per min ABG TIDAL VOLUME (test code=TVA) 500.0 mL ABG PEEP (test code=PEEPA) 7.0 cmH2O ABG PRESSURE SUPPORT (test code=PSABG) 15 cmH2O ABG TEMPERATURE (test code=TEMPA) 34.0 Celsius ABG SITE (test code=SITEA) Rt RADIAL ARTERY MODIFIED ALLENS (test code=MODALL) Yes CHECK PERFORMED HEMATOCRIT (test code=HCT/ABG) 33 % 42-52 TOTAL HGB (test code=THB) 11.3 gram/dL 13.0-17.5 HGB O2 SAT (test code=HBOSAT) 96.0 % 94.00-98.00 CARBOXYHEMOGLOBIN (test code=HOHGBT) 0.3 %totalHg 0.5-1.5 Results called to and read back by [employer] 02/10/2019; by Timbo Sandhu, [employer] METHEMOGLOBIN (test code=METHGB) 0.6 % 0.0-1.50 O2 CONTENT (test code=O2CT) 15.4 % vol 18.0-22.0 A-A GRADIENT (test code=AAGRADE) 417.0 mm Hg B-TYPE NATRIURETIC [id number] 03:40:00* Test Item Value Reference Range Comments B-TYPE NATRIURETIC PEPTIDE (test code=BNP) 30.77 pgram/mL 0-100 PROTHROMBIN [id number] 03:18:00* Test Item Value Reference Range Comments PROTHROMBIN TIME PATIENT (test code=PTP) 12.6 seconds 9.0-14.0 INTERNATIONAL NORMAL RATIO (test code=INR) 1.1 0.8-1.2 The therapeutic range for oral anticoagulant therapy formost indications is an international normalized ratio (INR)of between 2.0 and 3.0. The recommended therapeutic INRrange for various clinical situations is listed below: Clinical Situation INR range Pulmonary e mbolism treatment (2.0-3.0)Venous thrombosis treatmentVenous thrombosis prophylaxis (high risk surgery)Prevention of systemic embolism from: Acute myocardial infarction Valvular heart disease Atrial fibrillation Mechanical prosthetic heart valves (2.5-3.5) IS PATIENT ON ANTICOAGULANTS? NTHROMBOPLASTIN TIME [id number] 03:18:00* Test Item Value Reference Range Comments THROMBOPLASTIN TIME PARTIAL (test code=PTT) 48.5 seconds 25.0-36.5 IS PATIENT ON ANTICOAGULANTS? N- XR CHEST 1 [id number] 03:18:00 FAX: Mauricio Boyd DO [employer]: [address]: REG Name: [facility] : [birth year] Age/S: 38/M Claudio Tran Unit #: [id number] Loc: [place] [id number] Phys: Mauricio Boyd DO Acct: [id number] Dis Date: Status: REG ER PHONE #: [phone] Exam Date: 02/10/2019 023 FAX #: [phone] Reason: SHORTNESS OF BREATH EXAMS: CPT CODE: [id number] XR CHEST 1 V [id number] EXAM: - XR CHEST 1 V HISTORY: Intubated. COMPARISON: March 30, 2017. FIND INGS: Single AP view of the chest is provided. Endotrachea l tube is 2.6 cm above the jo. Nasogastric tube is in the stomach. Hypoinflation of the lungs. There is no focal consolidation, pneumotho rax or pleural effusion. Prominent cardiac size could be due to lordotic p osition during this exam. IMPRESSION: ET a nd NG tube are in place. at 0318 Reported and signed by: Bakari Rangel MD CC: Mauricio Boyd DO Technologist: RT Catherine LUNDBERG scrd Date/Time/By: 02/10/2019 (0318) : By: [email or web address] Orig Print D/T: S : 02/10/2019 (0320) PAGE 1 Signed Report LACTIC [id number] 03:16:00* Test Item Value Reference Range Comments LACTIC ACID (test code=LACT) 7.9 mmol/L 0.4-1.9 Results called to by [email or web address] 02/10/19 0316Critical results verified and read back by Nurse? Venkata [id number] 03:14:00* Test Item Value Reference Range Comments ALCOHOL (test code=ALC) < 3 mg/dL 0.0-3.0 INTERPRETIVE DATA NOTE: POSITIVE SCREENING RESULTS SHOULD BE CONSIDERED PRESUMPTIVE.WHEN COLLECTED FOR MEDICAL PURPOSES ONLY. SPECIMEN WILL NOTBE COLLECTED BY CHAIN OF CUSTODY.IF A CONFIRMATION OF POSITIVE RESULTS IS DESIRED, ACONFIRMATION TEST MUST BE REQUESTED BY THE PHYSICIAN AT ANADDITIONAL CHARGE TO THE PATIENT. BASIC METABOLIC [id number] 03:14:00* Test Item Value Reference Range Comments SODIUM (test code=NA) 137 mmol/L 136-145 POTASSIUM (test code=K) 4.1 mmol/L 3.5-5.1 CHLORIDE (test code=CL) 107.0 mmol/L 98-107 CARBON DIOXIDE (test code=CO2) 14.0 mmol/L 21-32 ANION GAP (test code=GAP) 20.1 10-20 GLUCOSE (test code=GLU) 257 mg/dL 74-106 BLOOD UREA NITROGEN (test code=BUN) 34 mg/dL 7-18 GLOMERULAR FILTRATION RATE (test code=GFR) 18 mL/min >=60 Estimated GFR by using Modified MDRD formula.Chronic kidney disease is defined as either kidney damageor GFR <60 mL/min/1.73 m2 for >3 months. CREATININE (test code=CREAT) 3.80 mg/dL 0.7-1.3 BUN/CREATININE RATIO (test code=BUN/CREA) 8.9 10-20 CALCIUM (test code=CA) 7.9 mg/dL 8.5-10.1 HEPATIC FUNCTION [id number] 03:14:00* Test Item Value Reference Range Comments TOTAL PROTEIN (test code=PROT) 7.5 gram/dL 6.4-8.2 ALBUMIN (test code=ALB) 2.9 g/dL 3.4-5.0 GLOBULIN (test code=GLOB) 4.6 gram/dL 2.7-4.2 ALBUMIN/GLOBULIN RATIO (test code=A/G) 0.6 0.75-1.50 BILIRUBIN TOTAL (test code=BILT) 0.20 mg/dL 0.0-1.0 BILIRUBIN DIRECT (test code=BILD) 0.07 mg/dL 0.0-0.20 SGOT/AST (test code=AST) 47 IUnit/L 15-37 SGPT/ALT (test code=ALT) 40 IUnit/L 12-78 ALKALINE PHOSPHATASE TOTAL (test code=ALKP) 195 IUnit/L 45-117 Note change in reference range due to change in reagent. [id number] 03:14:00* Test Item Value Reference Range Comments PHOSPHORUS (test code=PHOS) 5.6 mg/dL 2.5-4.9 [id number] 03:14:00* Test Item Value Reference Range Comments LIPASE (test code=LIP) 52 U/L 73.0-393.0 [id number] 03:14:00* Test Item Value Reference Range Comments MAGNESIUM (test code=MAG) 2.0 mg/dL 1.8-2.4 [id number] 03:14:00* Test Item Value Reference Range Comments CKMB (test code=CKMBT) 8.3 ng/mL 0-6.0 [id number] 03:14:00* Test Item Value Reference Range Comments TROPONIN-I (test code=TROPI) 0.024 ng/mL 0-0.045 [id number] 03:13:00* Test Item Value Reference Range Comments AMMONIA (test code=AMM) 87 umol/L 11-32 - CT HEAD/BRAIN W/O [id number] 03:08:00 Name: PHILIP HALEY [facility] : 1980 Age/S: 38 / M [address] [facility] Unit #: [id number] Loc: [place] [address] Phys: Mauricio Boyd DO Acct: [id number] Dis Date: Status: REG ER PHONE #: [phone] Exam Date: 02/10/2019 0245 FAX #: [phone] Reason: ALTERED MENTAL STATUS EXAMS: CPT CODE: [id number] CT HEAD/BRAIN W/O CONT 21060 EXAM: - CT HEAD/BRAIN W/O CONT HISTORY: AMS. TECHNIQUE: Axial tomograms through the brain were obtained without intravenous contrast. This exam was performed according to our departmental dose-optimization program, which includes automated exposure control, adjustment of the mA and/or kV according to patient size and/or use of iterative reconstruction technique. COMPARISON: July 12, 2014. FINDINGS: Intubated. Endotracheal tube is partially visualized. There is no intracr anial hemorrhage, mass, or mass effect. The ventricular system and sulci a re age-appropriate. There is no evidence of acute infarction. There is chronic retinal /posterior thickening within the right globe. T he osseous structures and orbits, show no significant abnormalities. Mini mal mucosal thickening in paranasal sinuses. The soft tissues are unremark able. IMPRESSION: No evidence of acute intracr anial hemorrhage. Other findings as above. at 0308 Reported and signed by: Ellis Rangel MD CC: Mauricio Boyd DO Technologist:ISRAEL FAYE RT CTDI: DLP: Trnscb Date/Time: 02/10/2019 (307) Mary Ann.[email or web address] Orig Print D/T: S: 02/10/2019 (031) PAGE 1 Signed Report CBC W/MANUAL [id number] 03:03:00* Test Item Value Reference Range Comments WHITE BLOOD CELL (test code=WBC) 28.1 K/mm3 4.5-12.5 RED BLOOD CELL (test code=RBC) 4.03 mill/mm3 4.0-5.8 HEMOGLOBIN (test code=HGB) 11.3 gram/dL 13.0-17.5 HEMATOCRIT (test code=HCT) 35.3 % 42.0-52.0 MEAN CELL VOLUME (test code=MCV) 87.6 fL 80-98 MEAN CELL HGB (test code=MCH) 28.0 picogram 27.0-33.0 MEAN CELL HGB CONCETRATION (test code=MCHC) 32.0 gram/dL 33.0-36.0 RED CELL DISTRIBUTION WIDTH (test code=RDW) 13.1 % 11.6-16.2 RED CELL DISTRIBUTION WIDTH SD (test code=RDW-SD) 41.4 fL 37.0-51.0 PLATELET COUNT (test code=PLT) 310 K/mm3 150-450 MEAN PLATELET VOLUME (test code=MPV) 10.3 fL 6.7-11.0 IMMATURE GRANULOCYTE % (test code=IG%) 4.2 % 0.0-5.0 NUCLEATED RBC % (test code=NRBC%) 0.0 % 0-0 NEUTROPHIL # (test code=NT#) 17.70 K/mm3 1.8-7.7 IMMATURE GRANULOCYTE # (test code=IG#) 1.17 x10 3/uL 0-0.03 LYMPHOCYTE # (test code=LY#) 7.28 K/mm3 1.0-5.0 MONOCYTE # (test code=MO#) 1.72 K/mm3 0-0.8 EOSINOPHIL # (test code=EO#) 0.17 K/mm3 0.0-0.5 BASOPHIL # (test code=BA#) 0.08 K/mm3 0.0-0.2 NUCLEATED RBC # (test code=NRBC#) 0.00 K/mm3 0.0-0.1 MANUAL DIFF REQUIRED (test code=MDIFF) YES STAIN ACCEPTABILITY (test code=STN ACCEPTABLE) TOTAL CELLS COUNTED (test code=TCC) #CELLS SEGMENTED NEUTROPHILS (test code=SEG) % 39-69 LYMPHOCYTE (test code=LYMPH) % 25-55 MONOCYTE (test code=MON) % 0-10 EOSINOPHIL (test code=EOS) % 0.0-5.0 CABOT RINGS (test code=CAB) MORPHOLOGY COMMENT (test code=MOC) PLATELET ESTIMATE (test code=PLTEST) PLATELET MORPHOLOGY (test code=PLTMORPH) CBC W/MANUAL [id number] 03:03:00* Test Item Value Reference Range Comments WHITE BLOOD CELL (test code=WBC) 28.1 K/mm3 4.5-12.5 RED BLOOD CELL (test code=RBC) 4.03 mill/mm3 4.0-5.8 HEMOGLOBIN (test code=HGB) 11.3 gram/dL 13.0-17.5 HEMATOCRIT (test code=HCT) 35.3 % 42.0-52.0 MEAN CELL VOLUME (test code=MCV) 87.6 fL 80-98 MEAN CELL HGB (test code=MCH) 28.0 picogram 27.0-33.0 MEAN CELL HGB CONCETRATION (test code=MCHC) 32.0 gram/dL 33.0-36.0 RED CELL DISTRIBUTION WIDTH (test code=RDW) 13.1 % 11.6-16.2 RED CELL DISTRIBUTION WIDTH SD (test code=RDW-SD) 41.4 fL 37.0-51.0 PLATELET COUNT (test code=PLT) 310 K/mm3 150-450 MEAN PLATELET VOLUME (test code=MPV) 10.3 fL 6.7-11.0 IMMATURE GRANULOCYTE % (test code=IG%) 4.2 % 0.0-5.0 NUCLEATED RBC % (test code=NRBC%) 0.0 % 0-0 NEUTROPHIL # (test code=NT#) 17.70 K/mm3 1.8-7.7 IMMATURE GRANULOCYTE # (test code=IG#) 1.17 x10 3/uL 0-0.03 LYMPHOCYTE # (test code=LY#) 7.28 K/mm3 1.0-5.0 MONOCYTE # (test code=MO#) 1.72 K/mm3 0-0.8 EOSINOPHIL # (test code=EO#) 0.17 K/mm3 0.0-0.5 BASOPHIL # (test code=BA#) 0.08 K/mm3 0.0-0.2 NUCLEATED RBC # (test code=NRBC#) 0.00 K/mm3 0.0-0.1 MANUAL DIFF REQUIRED (test code=MDIFF) YES STAIN ACCEPTABILITY (test code=STN ACCEPTABLE) TOTAL CELLS COUNTED (test code=TCC) #CELLS SEGMENTED NEUTROPHILS (test code=SEG) % 39-69 LYMPHOCYTE (test code=LYMPH) % 25-55 MONOCYTE (test code=MON) % 0-10 EOSINOPHIL (test code=EOS) % 0.0-5.0 MORPHOLOGY COMMENT (test code=MOC) PLATELET ESTIMATE (test code=PLTEST) PLATELET MORPHOLOGY (test code=PLTMORPH) CBC W/MANUAL [id number] 03:03:00* Test Item Value Reference Range Comments WHITE BLOOD CELL (test code=WBC) 28.1 K/mm3 4.5-12.5 RED BLOOD CELL (test code=RBC) 4.03 mill/mm3 4.0-5.8 HEMOGLOBIN (test code=HGB) 11.3 gram/dL 13.0-17.5 HEMATOCRIT (test code=HCT) 35.3 % 42.0-52.0 MEAN CELL VOLUME (test code=MCV) 87.6 fL 80-98 MEAN CELL HGB (test code=MCH) 28.0 picogram 27.0-33.0 MEAN CELL HGB CONCETRATION (test code=MCHC) 32.0 gram/dL 33.0-36.0 RED CELL DISTRIBUTION WIDTH (test code=RDW) 13.1 % 11.6-16.2 RED CELL DISTRIBUTION WIDTH SD (test code=RDW-SD) 41.4 fL 37.0-51.0 PLATELET COUNT (test code=PLT) 310 K/mm3 150-450 MEAN PLATELET VOLUME (test code=MPV) 10.3 fL 6.7-11.0 IMMATURE GRANULOCYTE % (test code=IG%) 4.2 % 0.0-5.0 NUCLEATED RBC % (test code=NRBC%) 0.0 % 0-0 NEUTROPHIL # (test code=NT#) 17.70 K/mm3 1.8-7.7 IMMATURE GRANULOCYTE # (test code=IG#) 1.17 x10 3/uL 0-0.03 LYMPHOCYTE # (test code=LY#) 7.28 K/mm3 1.0-5.0 MONOCYTE # (test code=MO#) 1.72 K/mm3 0-0.8 EOSINOPHIL # (test code=EO#) 0.17 K/mm3 0.0-0.5 BASOPHIL # (test code=BA#) 0.08 K/mm3 0.0-0.2 NUCLEATED RBC # (test code=NRBC#) 0.00 K/mm3 0.0-0.1 MANUAL DIFF REQUIRED (test code=MDIFF) YES STAIN ACCEPTABILITY (test code=STN ACCEPTABLE) TOTAL CELLS COUNTED (test code=TCC) #CELLS SEGMENTED NEUTROPHILS (test code=SEG) % 39-69 LYMPHOCYTE (test code=LYMPH) % 25-55 MONOCYTE (test code=MON) % 0-10 MORPHOLOGY COMMENT (test code=MOC) PLATELET ESTIMATE (test code=PLTEST) PLATELET MORPHOLOGY (test code=PLTMORPH) VENOUS BLOOD [id number] 03:02:00* Test Item Value Reference Range Comments IONIZED CALCIUM (test code=CAIABG) 1.18 mmol/L 1.1-1.37 VENOUS BLOOD GAS PH (test code=PHV) 7.12 7.30-7.40 Results called to and read back by Veronica 02:39 - 02/10/2019; by TIMBO SANDHU, [employer] VENOUS BLOOD GAS PCO2 (test code=PCO2V) 42.2 mm Hg 39.0-51.0 VENOUS BLOOD GAS PO2 (test code=PO2V) 56.4 mm Hg 30.0-50.0 VBG HCO3 (test code=HCO3V) 13.4 mmol/L 17.0-30.0 VBG BASE EXCESS (test code=BALDEMAR) -15.3 mmol/L -5.0-5.0 VENOUS BLOOD GAS O2 SAT. (test code=O2SATV) 78 % 94-98 VENOUS BLOOD GAS FIO2 (test code=FIO2V) 100.0 PT. HGB (test code=PHGBVBG) 12.2 gram/dL 13.0-17.5 VENOUS BLOOD GAS SITE (test code=SITEV) OT SODIUM (test code=NA/VBG) 134.4 mEq/L 135-148 POTASSIUM (test code=K/VBG) 4.4 mEq/L 3.5-4.5 CHLORIDE (test code=CL/VBG) 104 mEq/L 98-106 GLUCOSE (test code=GLU/VBG) 273 mg/dL 74-99 HEMATOCRIT (test code=HCT/VBG) 36 % 42-52 HGB O2 SAT (test code=HBOSAT) 77.9 % 94.00-98.00 CARBOXYHEMOGLOBIN (test code=HOHGBT) 0.3 %totalHg 0.5-1.5 Results called to and read back by Veronica 02:39 - 02/10/2019; by TIMBO SANDHU, [employer] METHEMOGLOBIN (test code=METHGB) 0.4 % 0.0-1.50 O2 CONTENT (test code=O2CT) 13.4 % vol 18.0-22.0 BASIC METABOLIC [id number] 03:02:00* Test Item Value Reference Range Comments SODIUM (test code=NA) 137 mmol/L 136-145 POTASSIUM (test code=K) 4.1 mmol/L 3.5-5.1 CHLORIDE (test code=CL) 107.0 mmol/L 98-107 CARBON DIOXIDE (test code=CO2) mmol/L 21-32 ANION GAP (test code=GAP) 10-20 GLUCOSE (test code=GLU) mg/dL 74-106 BLOOD UREA NITROGEN (test code=BUN) mg/dL 7-18 GLOMERULAR FILTRATION RATE (test code=GFR) mL/min >=60 CREATININE (test code=CREAT) mg/dL 0.7-1.3 BUN/CREATININE RATIO (test code=BUN/CREA) 10-20 CALCIUM (test code=CA) mg/dL 8.5-10.1 HEPATIC FUNCTION [id number] 03:02:00* Test Item Value Reference Range Comments TOTAL PROTEIN (test code=PROT) gram/dL 6.4-8.2 ALBUMIN (test code=ALB) g/dL 3.4-5.0 GLOBULIN (test code=GLOB) gram/dL 2.7-4.2 ALBUMIN/GLOBULIN RATIO (test code=A/G) 0.75-1.50 BILIRUBIN TOTAL (test code=BILT) mg/dL 0.0-1.0 BILIRUBIN DIRECT (test code=BILD) mg/dL 0.0-0.20 SGOT/AST (test code=AST) IUnit/L 15-37 SGPT/ALT (test code=ALT) IUnit/L 12-78 ALKALINE PHOSPHATASE TOTAL (test code=ALKP) IUnit/L 45-117 [id number] 03:02:00* Test Item Value Reference Range Comments PHOSPHORUS (test code=PHOS) mg/dL 2.5-4.9 [id number] 03:02:00* Test Item Value Reference Range Comments LIPASE (test code=LIP) U/L 73.0-393.0 [id number] 03:02:00* Test Item Value Reference Range Comments MAGNESIUM (test code=MAG) mg/dL 1.8-2.4 [id number] 03:02:00* Test Item Value Reference Range Comments CKMB (test code=CKMBT) ng/mL 0-6.0 [id number] 03:02:00* Test Item Value Reference Range Comments TROPONIN-I (test code=TROPI) ng/mL 0-0.045 CBC W/MANUAL [id number] 03:02:00* Test Item Value Reference Range Comments WHITE BLOOD CELL (test code=WBC) 28.1 K/mm3 4.5-12.5 RED BLOOD CELL (test code=RBC) 4.03 mill/mm3 4.0-5.8 HEMOGLOBIN (test code=HGB) 11.3 gram/dL 13.0-17.5 HEMATOCRIT (test code=HCT) 35.3 % 42.0-52.0 MEAN CELL VOLUME (test code=MCV) 87.6 fL 80-98 MEAN CELL HGB (test code=MCH) 28.0 picogram 27.0-33.0 MEAN CELL HGB CONCETRATION (test code=MCHC) 32.0 gram/dL 33.0-36.0 RED CELL DISTRIBUTION WIDTH (test code=RDW) 13.1 % 11.6-16.2 RED CELL DISTRIBUTION WIDTH SD (test code=RDW-SD) 41.4 fL 37.0-51.0 PLATELET COUNT (test code=PLT) 310 K/mm3 150-450 MEAN PLATELET VOLUME (test code=MPV) 10.3 fL 6.7-11.0 IMMATURE GRANULOCYTE % (test code=IG%) 4.2 % 0.0-5.0 NUCLEATED RBC % (test code=NRBC%) 0.0 % 0-0 NEUTROPHIL # (test code=NT#) 17.70 K/mm3 1.8-7.7 IMMATURE GRANULOCYTE # (test code=IG#) 1.17 x10 3/uL 0-0.03 LYMPHOCYTE # (test code=LY#) 7.28 K/mm3 1.0-5.0 MONOCYTE # (test code=MO#) 1.72 K/mm3 0-0.8 EOSINOPHIL # (test code=EO#) 0.17 K/mm3 0.0-0.5 BASOPHIL # (test code=BA#) 0.08 K/mm3 0.0-0.2 NUCLEATED RBC # (test code=NRBC#) 0.00 K/mm3 0.0-0.1 MANUAL DIFF REQUIRED (test code=MDIFF) YES STAIN ACCEPTABILITY (test code=STN ACCEPTABLE) TOTAL CELLS COUNTED (test code=TCC) #CELLS SEGMENTED NEUTROPHILS (test code=SEG) % 39-69 LYMPHOCYTE (test code=LYMPH) % 25-55 MONOCYTE (test code=MON) % 0-10 EOSINOPHIL (test code=EOS) % 0.0-5.0 CABOT RINGS (test code=CAB) MORPHOLOGY COMMENT (test code=MOC) PLATELET ESTIMATE (test code=PLTEST) PLATELET MORPHOLOGY (test code=PLTMORPH) CBC W/MANUAL [id number] 03:02:00* Test Item Value Reference Range Comments WHITE BLOOD CELL (test code=WBC) 28.1 K/mm3 4.5-12.5 RED BLOOD CELL (test code=RBC) 4.03 mill/mm3 4.0-5.8 HEMOGLOBIN (test code=HGB) 11.3 gram/dL 13.0-17.5 HEMATOCRIT (test code=HCT) 35.3 % 42.0-52.0 MEAN CELL VOLUME (test code=MCV) 87.6 fL 80-98 MEAN CELL HGB (test code=MCH) 28.0 picogram 27.0-33.0 MEAN CELL HGB CONCETRATION (test code=MCHC) 32.0 gram/dL 33.0-36.0 RED CELL DISTRIBUTION WIDTH (test code=RDW) 13.1 % 11.6-16.2 RED CELL DISTRIBUTION WIDTH SD (test code=RDW-SD) 41.4 fL 37.0-51.0 PLATELET COUNT (test code=PLT) 310 K/mm3 150-450 MEAN PLATELET VOLUME (test code=MPV) 10.3 fL 6.7-11.0 IMMATURE GRANULOCYTE % (test code=IG%) 4.2 % 0.0-5.0 NUCLEATED RBC % (test code=NRBC%) 0.0 % 0-0 NEUTROPHIL # (test code=NT#) 17.70 K/mm3 1.8-7.7 IMMATURE GRANULOCYTE # (test code=IG#) 1.17 x10 3/uL 0-0.03 LYMPHOCYTE # (test code=LY#) 7.28 K/mm3 1.0-5.0 MONOCYTE # (test code=MO#) 1.72 K/mm3 0-0.8 EOSINOPHIL # (test code=EO#) 0.17 K/mm3 0.0-0.5 BASOPHIL # (test code=BA#) 0.08 K/mm3 0.0-0.2 NUCLEATED RBC # (test code=NRBC#) 0.00 K/mm3 0.0-0.1 MANUAL DIFF REQUIRED (test code=MDIFF) YES STAIN ACCEPTABILITY (test code=STN ACCEPTABLE) TOTAL CELLS COUNTED (test code=TCC) #CELLS SEGMENTED NEUTROPHILS (test code=SEG) % 39-69 LYMPHOCYTE (test code=LYMPH) % 25-55 MONOCYTE (test code=MON) % 0-10 EOSINOPHIL (test code=EOS) % 0.0-5.0 CABOT RINGS (test code=CAB) MORPHOLOGY COMMENT (test code=MOC) PLATELET ESTIMATE (test code=PLTEST) PLATELET MORPHOLOGY (test code=PLTMORPH) CHEST SINGLE (PORTABLE) [place] [address] Patient Name: PHILIP HALEY MR #: [id number] : 1980 Age/Sex: 37/M Req #: [id number] Adm Physician: TOMASZ NAPOLES MD Ordered by: PHILIP CHARLTON MD Report #: [id number] Location: MED/SURG Room/Bed: [facility] Procedure: [id number] DX/CHEST SI NGLE (PORTABLE) Exam Date: 08/23/17 Exam Time: 0535 REPORT STATUS: Signed EXAM: CHEST SINGLE (PORTABLE), AP 1 view DATE: 08/23/2017 8:00 AM Time stamp on exam: 0548 hours INDICATION: Pneumonia COM PARISON: AP view of the chest August 21, 2017 FINDINGS: LINES/TUBES: In terval removal of nasal/orogastric tube LUNGS: Persistent bilateral interst itial and nodular opacities PLEURA: No effusions or pneumothorax. HEA RT AND MEDIASTINUM: Stable appearance BONES AND SOFT TISSUES: No acute find ings. IMPRESSION: Interval removal of the nasal/orogastric tube. Otherwi se, no significant interval change in appearance of the chest. Sign ed by: Dr. Andreas Elias M.D. on 08/23/2017 6:28 AM Dictated By: ANDREAS ELIAS MD 7 [place] scribed By: SAVANA on 08/23/17627 COPY TO: PHILIP CHARLTON MD CHEST SINGLE (PORTABLE) [place] [address] Patient Name: PHILIP HALEY MR #: [id number] : 1980 Age/Sex: 37/M Req #: [id number] Adm Physician: TOMASZ NAPOLES MD Ordered by: PHILIP CHARLTON MD Report #: [id number] Location: ICU Room/Bed: ICU [facility] Procedure: [id number] DX/CHEST SIN GLE (PORTABLE) Exam Date: 08/21/17 Exam Time: 0553 REPORT STATUS: Signed EXAM: CHEST SINGLE (PORTABLE), AP 1 view DATE: 10/21/2016 8:00 AM Time stamp on exam: 0553 hours INDICATION: Pneumonia COMP ARISON: AP view of the chest August 20, 2017 FINDINGS: LINES/TUBES: Sabino al/orogastric tube courses below the diaphragm with tip poorly visualized. LUNGS: Bilateral reticular nodular changes less well visualized secondary to technique PLEURA: No effusions or pneumothorax. HEART AND MEDIASTINU M: Stable appearance given differences in positioning. BONES AND SOFT TISSU ES: No acute findings. IMPRESSION: No significant interval change given differences in technique and positioning. Signed by: Dr. Andreas millan M.D. on 08/21/2017 6:33 AM Dictated By: ANDREAS ELIAS MD [facility] Signed By: ANDREAS ELIAS MD on 08/21/17632 Transcribed By: SAVANA on 08/21/17632 COPY TO: PHILIP CHARLTON MD ABDOMEN COMP INCL UPR or DECUB [place] [address] Patient Name: PHILIP HALEY MR #: [id number] : 1980 Age/Sex: 37/M Req #: [id number] Adm Physician: TOMASZ NAPOLES MD Ordered by: MONICA HUBBARD MD Report #: [id number] Location: ICU Room/Bed: ICU 192-1 Procedure: [id number] DX/ABD OMEN COMP INCL UPR or DECUB Exam Date: 08/20/17 Exam Time: 1100 REPORT STATUS: Signed PROCEDURE: ABDOMEN COMP INCL UPR OR DECUB INDICATION: Obstruction COMPARISON: None. FINDINGS: Stable position of enteric tube, with the tip projecting over the expected region of the gastric body. Enteric contrast opacifies the right colon. The bowel gas pattern shows no dilated, air-filled loops of small bowel. No pneumoperiton eum. No mass effect or organomegaly. Regional skeletal structures are intact. CONCLUSION: Nonobstructive bowel gas pattern. Orally ingested contr ast from CT abdomen and pelvis 08/19/2017 has migrated into the ascending and transverse colon. Dictated by: Philip Gaffney M.D. on 08/20/2017 at 12:05 Electronically approved by: Philip Gaffney M.D. on 08/20/2017 at 12:05 Dictated By: PHILIP GAFFNEY MD 1205 Transcribed By: ANITA on 08/20/17 1205 CO PY TO: MONICA HUBBARD MD CHEST SINGLE (PORTABLE) [place] [address] Patient Name: PHILIP HALEY MR #: [id number] : 1980 Age/Sex: 37/M Req #: [id number] Adm Physician: TOMASZ NAPOLES MD Ordered by: AMARILYS VELÁZQUEZ MD Report #: [id number] Location: MED/SURG2 Room/Bed: 206-1 Procedure: [id number] DX/CARMELITA ST SINGLE (PORTABLE) Exam Date: 08/20/17 Exam Time: 07 REPORT STATUS: Signed PROCEDURE: A single AP view of the chest. COMPARISON: None. INDICATIONS: NG TUBE PLACEMENT FINDING S: The lower chest and upper abdomen are included on the radiograph. An ent jonathan tube is in place, with the tip projecting over the expected region of th e gastric body. Contrast material opacifies the colon. Evaluation is other augustin limited due to body habitus. Patchy opacities in the lung bases se en better on comparison chest radiograph from earlier 08/20/2017. I MPRESSION: Tip of nasogastric tube projects over the expected region of t he gastric body. Dictated by: Philip Gaffney M.D. on 08/20/2017 at 7:33 Electronically approved by: Philip Gaffney M.D. on 08/20/2017 at 7:33 Dictated By: PHILIP GAFFNEY MD 2 Transcribed By: ANITA on 08/20/17732 COPY TO: AMARILYS VELÁZQUEZ MD CHEST 2 VIEWS [place] [address] Patient Name: PHILIP HALEY MR #: [id number] : 1980 Age/Sex: 37/M Req #: [id number] Adm Physician: TOMASZ NAPOLES MD Ordered by: ARON VICTOR MD Report #: [id number] Location: MED/SURG2 Room/Bed: [facility] Procedure: DX/CARMELITAS T 2 VIEWS Exam Date: 08/20/17 Exam Time: 0555 REPORT STATUS: Signed EXAM: CHEST 2 VIEWS, PA and lateral DATE: 08/20/2017 5:00 AM Time stamp on exam: O 0536 hours INDICATION: Shortness of breath CO MPARISON: AP view of the chest August 19, 2017 and upper abdomen x-ray Novem 2016 FINDINGS: LINES/TUBES: Interval removal of nasal/orogastric tube LUNGS: Diffuse bilateral reticulonodular changes. PLEURA: No eff usions or pneumothorax. HEART AND MEDIASTINUM: Normal size and contour. BONES AND SOFT TISSUES: No acute findings. IMPRESSION: Diffuse bilater al reticulonodular changes consistent with atypical infection. Signed by: Dr. Andreas Elias M.D. on 08/20/2017 6:28 AM Dictated By: ANDREAS ELIAS MD 7 Transc ribed By: SAVANA on 08/20/17627 COPY TO: ARON VICTOR MD CHEST SINGLE (PORTABLE) [place] [address] Patient Name: PHILIP HALEY MR #: [id number] : 1980 Age/Sex: 37/M Req #: [id number] Adm Physician: TOMSAZ NAPOLES MD Ordered by: AMARILYS VELÁZQUEZ MD Report #: [id number] Location: MED/SURG2 Room/Bed: [facility] Procedure: DX/CARMELITA ST SINGLE (PORTABLE) Exam Date: Exam Time: R EPORT STATUS: Signed EXAM: CHEST SINGLE (PORTABLE), AP 1 view DATE: 017 1:53 AM Time stamp on exam: 0150 hours INDICATION: Nasogastric tube place ment COMPARISON: None FINDINGS: See impression IMPRESSION: AP po rtable image of the lower chest and upper abdomen for the purpose of nasogastr ic tube placement shows the tip of the nasogastric tube in expected location o f the proximal stomach. Diffuse bilateral reticulonodular changes consisten t with atypical infection partially visualized. Signed by: Dr. Andreas Elias M.D. on 08/20/2017 2:15 AM Dictated By: ANDREAS ELIAS MD Electr onically Signed By: ANDREAS ELIAS MD on 08/20/17214 Transcribed By: SAVANA nichole 08/20/17214 COPY TO: AMARILYS VELÁZQUEZ MD CT ABDOMEN/PELVIS WO [place] [address] Patient Name: PHILIP HALEY MR #: [id number] : Age/Sex: 37/M Req #: [id number] Adm Physician: TOMASZ TONY MD Ordered by: AMARILYS VELÁZQUEZ MD Report #: [id number] Location: MED/SURG Room/Bed: [facility] Procedure: [id number] CT/CT ABDOMEN/PELVIS WO Exam Date: Exam Time: REPO RT STATUS: Signed EXAM: CT ABDOMEN AND PELVIS without IV CONTRAST DATE: 8:47 PM Time stamp on Exam: 2226 hours INDICATION: Abdominal pain, h ypertensive crisis COMPARISON: CT of the chest August 16, 2017 TECHNIQUE: The abdomen and pelvis were scanned using a multidetector helical scanner. Co chase and sagittal reformations were obtained. Routine protocol performed. I V Contrast: None Oral Contrast: Gastrografin CTDIvol has been reviewed. It i s below the limits set by the Radiation Protocol Committee (RPC). FINDING S: LOWER THORAX: Extensive bilateral centrilobular nodules in tree-in-bud co nfiguration, increased from prior exam. Bilateral bronchial wall thickening. LIVER: No masses BILIARY: The gallbladder is unremarkable. No ductal dilatio n. SPLEEN: No masses PANCREAS: No masses ADRENALS: No nodules KID NEYS: No nephroureterolithiasis or hydronephrosis. Nonspecific bilateral perin ephric fat stranding, likely related to medical renal disease. GI TRACT: No distention, wall thickening or evidence of obstruction. Small sliding hiatal hernia. Normal appendix. VESSELS: Unremarkable PERITONEUM/RETROPERITONEUM : No free air or fluid LYMPH NODES: Nonspecific subcentimeter shawna hepatis, r etroperitoneal, bilateral iliac chain and inguinal lymph nodes. REPRODUCT YANELY ORGANS: Unremarkable BLADDER: Unremarkable SOFT TISSUES: Unremarkable BONES: No suspicious bone lesions. IMPRESSION: Marked interval increase in bilateral diffuse centrilobular nodules in tree-in-bud configuration most consistent with endobronchial spread of atypical infection. Tuberculosis is in the differential. Findings discussed with patient's nurse Ankita 08/19/2017 at 2305 hrs. Patient is currently being spot tested for Tuberculosis. Nonspecific subcentimeter retroperitoneal, pelvic and inguinal lymph nodes. Nonspecific bilateral perinephric fat stranding, which can be seen in medical renal disease. Signed by: Dr. Andreas Elias M.D. on 08/19/2017 11:05 PM Dictated By: ANDREAS ELIAS MD 04 Transcribed By: SAVANA on 08/19/172304 COPY TO: AMARILYS VELÁZQUEZ MD ABDOMEN COMP INCL UPR or DECUB [place] [address] Patient Name: PHILIP HALEY MR #: [id number] : 1980 Age/Sex: 37/M Req #: [id number] Adm Physician: TOMASZ NAPOLES MD Ordered by: ARON VICTOR MD Report #: [id number] Location: MED/SURG2 Room/Bed: [facility] Procedure: [id number] DX/ABDO MEN COMP INCL UPR or DECUB Exam Date: 08/19/17 Exam Time: 1500 REPORT STATUS: Signed PROCEDURE: ABDOMEN COMP INCL UPR OR DECUB INDICATION: Bowel obstruction COMPARISON: None. FINDINGS: No abnormally distended air-filled loops of large or small bowel. A normal am ount of stool is present in the colon. No free air under the diaphragm or abn ormal air fluid levels within the visualized bowel loops on upright view. The flanks extend out of the field of view. No abnormal calcifications overl ie the renal silhouettes or expected course the ureters or bladder. Please re criss to same day chest radiograph for lung findings. Osseous structures are in tact. CONCLUSION: Nonobstructive bowel gas pattern. D ictated by: Jatinder Pino M.D. on 08/19/2017 at 15:26 Electronically ap proved by: Jatinder Pino M.D. on 08/19/2017 at 15:26 Dictate d By: JATINDER PINO MD 1 526 Transcribed By: ANITA on 08/19/17 1526 COPY TO: ARON VICTOR MD CHEST 2 VIEWS [place] [address] Patient Name: PHILIP HALEY MR #: [id number] : 1980 Age/Sex: 37/M Req #: [id number] Adm Physician: TOMASZ NAPOLES MD Ordered by: ARON VICTOR MD Report #: [id number] Location: MED/SURG2 Room/Bed: 206- Procedure: [id number] DX/CHES T 2 VIEWS Exam Date: 08/19/17 Exam Time: 1151 REPORT STATUS: Signed PROCEDURE: CHEST 2 VIEWS TECHNIQUE: PA and latera l chest INDICATION: Pneumonia; cough; shortness of breath COMPARISON: [facility], CT, CT CHEST WO, 08/16/2017, 12:18. FINDINGS: Multifocal airspace opacities throughout both lungs without pleural effusions . Normal heart size and mediastinal contour. Intact skeleton. CONCLUSI ON: Progression of multifocal air space opacities relative to July 2018 consistent with evolving pneumonia. No cavitation. Dictated by: Benedict Davis M.D. on 08/19/2017 at 12:20 Electronically approved b y: Benedict Davis M.D. on 08/19/2017 at 12:20 Dictated B y: BENEDICT DAVIS MD 12 20 Transcribed By: ANITA on 08/19/17 1220 COPY TO: ARON VICTOR MD RENAL RETROPERITONEAL COMP [place] [address] Patient Name: PHILIP HALEY MR #: [id number] : 1980 Age/Sex: 37/M Req #: [id number] [facility] Physician: TOMASZ NAPOLES MD Ordered by: ALEXIS SALAS, [place] [facility]AS Report #: [id number] Location: MED/SURG2 Room/Bed: 206- Procedure: US/US R ENAL RETROPERITONEAL COMP Exam Date: Exam Time: REPORT STATUS: Signed PROCEDURE: US RETROPERITONEAL (KIDNEY). COMPARI SON: None. INDICATIONS: Acute kidney injury TECHNIQUE: Hearn scale and color Doppler ultrasound kidneys FINDINGS: Right: 11.6 x 6.3 x 6.3 c m. Cortical thickness 1.7 cm. Left: 12.3 x 6.9 x 5.8 cm. Cortical thickness 1. 8 cm. Both kidneys demonstrate normal parenchymal echogenicity. No evidenc e of stone, mass or cyst. Survey views of the urinary bladder are sneha l. Prostate volume: 7.4 mL CONCLUSION: Normal renal ultrasound. Dictated by: Benedict Davis M.D. on 08/19/2017 at 12:53 Electro nically approved by: Benedict Davis M.D. on 08/19/2017 at 12:53 Dictated By: BENEDICT DAVIS MD 1253 Transcribed By: ANITA on 08/19/17 1253 COPY TO: ALLYSON GONZALEZ CT CHEST [place] [address] Patient Name: PHILIP HALEY MR #: [id number] : 1980 Age/Sex: 37/M Req #: [id number] Adm Physician: TOMASZ NAPOLES MD Ordered by: TOMASZ NAPOLES MD Report #: [id number] Location: MED/SURG2 Room/Bed: [facility] Procedure: CT/CT CHEST WO Exam Date: 08/16/17 Exam Time: 1225 REPORT STATUS: Signed EXAM: CT Chest WITHOUT contrast INDICATION: Chest pain COMPARISON: None available TECHNIQUE: Chest was scanned utilizing a multi detector helical scanner from the lung apex through the level of the diaphragm . Coronal and sagittal reconstructions were submitted for interpretation. The lack of intravenous contrast limits the evaluation of the solid organs, vascu lature, and possible lymphadenopathy. Protocol: Chest without contrast CONTRAST: No intravenous contrast was administered as per physician request. COMPLICATIONS: None RADIATION DOSE: Total exam DLP: 561.9 mGy*cm. CTDIvol has been reviewed. It is below the limits set by the Radiation Protocol Committee (RPC). FINDINGS: LINES/ TUBES: None. Heart: No ca rdiomegaly. No pericardial effusion. Vessels: Normal thoracic aorta and c oronary arteries. Limited evaluation. Mediastinum: Multiple subcentimeter noncalcified lymph nodes are present in the right hilum, subcarinal region, an d right paratracheal region. No mediastinal or hilar mass or lymphadenopathy. Normal thyroid. Lungs: No parenchymal mass. Multiple punctate nodular den sities are present in the right lower lobe, series 3 image 31, the right middl e lobe, series 3 image 18, and the right upper lobe, series 3 image 15. Pleura: No pleural effusion. No pneumothorax. Soft tissues: Normal. No axillary mass or lymphadenopathy. Bones: No acute osseous abnormality. Deg enerative changes of the thoracic spine. Adrenal glands: No adrenal nodu les.. Abdomen: The partially visualized portions of the upper abdomen are unremarkable.. IMPRESSION: Right lung multifocal pneumonia. Signed by: Dr. Tomasz Evangelista M.D. on 08/16/2017 12:58 PM Dictated By: JAMISON EVANGELISTA MD 1258 Transcri bed By: SAVANA on 08/16/17 1258 COPY TO: TOMASZ NAPOLES MD [place] [address] Patient Name: PHILIP HALEY MR #: [id number] : 1980 Age/Sex: 37/M Req #: [id number] Adm Physician: Ordered by: SOWMYA MENDOZA MD Report #: [id number] Location: ER Room/Bed: Procedure: [id number] DX/FOOT RIGHT COMPLETE Exam Date: 08/15/17 Exam Time: 1809 REPORT STATUS: Signed PROCEDURE: X-RAY RIGHT FOOT, COMPLETE COMPARISON: None. JOSE CATIONS: OSTEOMYELITIS, DIABETIC FINDINGS: Normal mineralization. No acute, displaced fracture or dislocation. 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 Cortical surfaces are intact, wit hout destruction or erosion. Vascular calcifications. No soft tissue defect. CONCLUSION: Status post amputation of the first toe at the metata rsophalangeal level. No cortical erosion or destruction to suggest osteomyeli tis. Malcolm Alves M.D. Dictated by: Malcolm Alves M.D. on 08/15/2017 at 18:38 Electronically approved by: Malcolm Alves M.D. on 08/15/2017 at 18:38 Dictated By: MALCOLM ALVES MD Electr onically Signed By: MALCOLM ALVES MD on 08/15/171837 Transcribed By: ANITA on 08/15/171837 COPY TO: SOWMYA MENDOZA MD CHEST 2 VIEWS [place] [address] Patient Name: PHILIP HALEY MR #: [id number] : 1980 Age/Sex: 37/M Req #: [id number] Adm Physician: Ordered by: SOWMYA MENDOZA MD Report #: [id number] Location: ER Room/Bed: Procedure: [id number] DX/CHEST 2 VIEWS Exam Date: 08/15 Exam Time: 1800 REPORT STATUS: Signed [facility] OCEDURE: Frontal and lateral views of the chest. COMPARISON: None. INDICATIONS: CHEST PAIN, SHORTNESS OF BREAT FINDINGS: Lines/tubes: None. Lungs: Mildly hypoinflated lungs. No consolidation or pulmonary e sung. Pleura: There is no pleural effusion or pneumothorax. Heart a nd mediastinum: Prominence of the cardiac silhouette, which may be partly due to low lung volumes. Central vascular crowding. Bones: No acute bony abn ormality. IMPRESSION: 1. prominence of the cardiac silhouette and c entral lesser crowding, which may be partly due to low lung volumes. No conso lidation or pulmonary edema. Malcolm Alves M.D. Dictated by: Malcolm Alves M.D. on 08/15/2017 at 18:39 Electronically approv ed by: Malcolm Alves M.D. on 08/15/2017 at 18:39 Dictate d By: MALCOLM ALVES MD 38 Transcribed By: ANITA on 08/15/171838 COPY TO: SOWMYA MENDOZA MD
== END 2019-09-15 13:00 | disposition left against medical advice (07) ==
LOC: ER 12:33
DX: M79.674 Pain in right toe(s) (principal)